=== PATIENT | female | born 1940 | race Caucasian/White ===

== ENCOUNTER 2019-01-25 21:31 | Inpatient (IN) | payer MEDICARE ==
[~2019-01-25] VITALS: Ht 172.7 cm; Wt 93.0 kg
[~2019-01-25 21:31] MED LIST: ANTIVERT12.5 MG PO; CEPHALEXIN500 MG PO; HYDROCHLORO25 MG/TAB PO; LISINOPRIL10 MG PO; METFORMIN500 MG PO; METOPROL TAR25 MG PO; PLAVIX75 MG PO; ROBITUSSIN AC10 ML PO; TOPROL XL PO; ZPAK PO
[2019-01-25] MEDS ORDERED: AMLODIPINE5 MG PO (22:27)
[2019-01-25] MEDS ORDERED: PLAVIX75 MG PO (22:27)
[2019-01-25] MEDS ORDERED: MAXZIDE-2537.5 MG/TA PO (22:28)
[2019-01-25] MEDS ORDERED: SIMVASTATIN40 MG PO (22:29)
[2019-01-25 22:49] LABS: HEMATOCRIT 48.2 % (37.0-47.0); IMMATURE GRANULOCYTES 0.5 % (0.0-5.0); MEAN CELL VOLUME 86.8 fL CALC (80.0-100.0); MEAN CORPUSCULAR HGB 28.8 pG CALC (26.0-32.0); MEAN CORPUSCULAR HGB CONC 33.2 g/L CALC (32.0-36.0); NEUT# 7.28 thou/uL (2.00-7.15); RED BLOOD COUNT 5.55 mill/uL (4.20-5.60); RED CELL DISTRI WIDTH 13.1 % (11.5-15.5)
[2019-01-25 22:51] LABS: URINE BILIRUBIN - DIPSTICK NEGATIVE (NEGATIVE); URINE BLOOD DIPSTICK NEGATIVE (NEGATIVE); URINE COLOR YELLOW; URINE GLUCOSE - DIPSTICK >=1000 mg/dL (NEGATIVE); URINE KETONE TRACE mg/dL (NEGATIVE); URINE LEUK ESTERASE TRACE (NEGATIVE); URINE NITRITE - DIPSTICK NEGATIVE (Negative); URINE PROTEIN - DIPSTICK NEGATIVE (NEG-TRACE); URINE UROBILINOGEN - DIPSTICK 0.2 E.U./dL (0.2)
[2019-01-25 23:03] LABS: ALBUMIN 4.6 g/dL (3.2-5.0); ALKALINE PHOSPHATASE 89 u/l (38-126); ANION GAP 20 (6-22 (CALC)); BILIRUBIN, TOTAL 0.8 mg/dL (0.0-1.4); BUN 50 mg/dL (8-23); BUN/CREATININE RATIO 45 (12-20 (CALC)); CARBON DIOXIDE 25 mmol/l (22-30); CHLORIDE 90 mmol/l (95-108); CREATININE 1.1 mg/dL (0.5-1.0); GFR 48 ML/MIN (>=60 (CALC)); GFR FOR AFR.AMER. 58 ML/MIN (>=60 (CALC)); POTASSIUM 4.1 mmol/l (3.5-5.1); SGOT/AST 15 u/l (9-36); TOTAL PROTEIN 7.3 g/dL (6.3-8.2)
[2019-01-25 23:10] LABS: URINE BACTERIA FEW hpf; URINE RBC 0-2 RBC/hpf (0-5); URINE SQUAMOUS EPITHELIAL CELL FEW EPI/hpf (0-FEW); URINE WBC 20-50 WBC/hpf (0-5)
[2019-01-25 23:13] LABS: SODIUM 131 mmol/l (137-146)
[2019-01-25 23:16] LABS: MYOGLOBIN 64 ng/mL (0 - 62)
[2019-01-26] VITALS (13 sets, daily range): BP systolic 103–142; BP diastolic 51–70
[2019-01-26 00:34] LABS: ANION GAP 16 (6-22 (CALC)); BUN 51 mg/dL (8-23); BUN/CREATININE RATIO 50 (12-20 (CALC)); CARBON DIOXIDE 24 mmol/l (22-30); CHLORIDE 95 mmol/l (95-108); GFR 54 ML/MIN (>=60 (CALC)); GFR FOR AFR.AMER. > 60 ML/MIN (>=60 (CALC)); POTASSIUM 3.9 mmol/l (3.5-5.1); SODIUM 131 mmol/l (137-146)
[2019-01-27] VITALS: BP 143/85
[2019-01-27 04:00] VITALS: BP 137/70
[2019-01-27 05:21] LABS: HEMATOCRIT 50.6 % (37.0-47.0); HEMOGLOBIN 16.5 g/dl (12.0-16.0); IMMATURE GRANULOCYTES 0.4 % (0.0-5.0); MEAN CELL VOLUME 89.7 fL CALC (80.0-100.0); MEAN CORPUSCULAR HGB 29.3 pG CALC (26.0-32.0); MEAN CORPUSCULAR HGB CONC 32.6 g/L CALC (32.0-36.0); NEUT# 8.13 thou/uL (2.00-7.15); RED BLOOD COUNT 5.64 mill/uL (4.20-5.60); RED CELL DISTRI WIDTH 13.1 % (11.5-15.5)
[2019-01-27 06:14] LABS: ALBUMIN 4.3 g/dL (3.2-5.0); ALKALINE PHOSPHATASE 80 u/l (38-126); BILIRUBIN, TOTAL 0.9 mg/dL (0.0-1.4); BUN 24 mg/dL (8-23); BUN/CREATININE RATIO 31 (12-20 (CALC)); CHLORIDE 97 mmol/l (95-108); CREATININE 0.8 mg/dL (0.5-1.0); GFR > 60 ML/MIN (>=60 (CALC)); GFR FOR AFR.AMER. > 60 ML/MIN (>=60 (CALC)); LIPASE 102 u/l (23-300); MAGNESIUM 1.6 mg/dL (1.6-2.3); POTASSIUM 3.9 mmol/l (3.5-5.1); SGOT/AST 21 u/l (9-36); SODIUM 134 mmol/l (137-146); TOTAL PROTEIN 6.8 g/dL (6.3-8.2)
[2019-01-27 06:18] LABS: ANION GAP 23 (6-22 (CALC)); CARBON DIOXIDE 18 mmol/l (22-30)
[2019-01-27 06:42] LABS: AMYLASE 38 u/l (30-110)
[2019-01-27 08:08] VITALS: BP 124/59
[2019-01-27 13:22] VITALS: BP 145/68
[2019-01-27 15:10] VITALS: BP 104/67
[2019-01-27 18:53] VITALS: BP 101/56
[2019-01-28 04:10] VITALS: BP 123/74
[2019-01-28 05:24] LABS: IMMATURE GRANULOCYTES 0.2 % (0.0-5.0); MEAN CELL VOLUME 87.1 fL CALC (80.0-100.0); MEAN CORPUSCULAR HGB CONC 33.3 g/L CALC (32.0-36.0); NEUT# 3.51 thou/uL (2.00-7.15); RED BLOOD COUNT 4.82 mill/uL (4.20-5.60); RED CELL DISTRI WIDTH 13.1 % (11.5-15.5)
[2019-01-28 06:15] LABS: ALBUMIN 3.5 g/dL (3.2-5.0); ALKALINE PHOSPHATASE 60 u/l (38-126); BILIRUBIN, TOTAL 0.6 mg/dL (0.0-1.4); BUN 30 mg/dL (8-23); BUN/CREATININE RATIO 33 (12-20 (CALC)); CHLORIDE 99 mmol/l (95-108); CREATININE 0.9 mg/dL (0.5-1.0); GFR > 60 ML/MIN (>=60 (CALC)); GFR FOR AFR.AMER. > 60 ML/MIN (>=60 (CALC)); MAGNESIUM 1.6 mg/dL (1.6-2.3); POTASSIUM 3.9 mmol/l (3.5-5.1); SGOT/AST 18 u/l (9-36); SODIUM 134 mmol/l (137-146); TOTAL PROTEIN 5.8 g/dL (6.3-8.2)
[2019-01-28 06:25] LABS: ANION GAP 15 (6-22 (CALC)); CARBON DIOXIDE 24 mmol/l (22-30)
[2019-01-28 07:40] VITALS: BP 122/63
[2019-01-28] MEDS ORDERED: CEPHALEXIN500 MG PO (14:25)
[2019-01-28] MEDS ORDERED: METFORMIN1000 MG PO (14:27)
[2019-01-28] MEDS ORDERED: JANUVIA50 MG PO (14:27)
[2019-01-28 15:40] VITALS: BP 116/66
== END 2019-01-28 17:35 | disposition home or self-care (01) | DRG 637 ==
LOC: ED 21:31 → ED-I 01-26 00:35 → ED 01-26 01:00 → ICU 01-26 01:01 → MS2 01-26 01:01
PROVIDERS: Emergency Medicine; ADMIT Internal Medicine Nephrology; ATTEND Internal Medicine Nephrology
DX: E11.65 Type 2 diabetes mellitus with hyperglycemia (principal); E11.00 Type 2 diabetes mellitus with hyperosmolarity without nonketotic hyperglycemic-hyperosmolar coma (NKHHC); N39.0 Urinary tract infection, site not specified; I10 Essential (primary) hypertension; F03.90 Unspecified dementia, unspecified severity, without behavioral disturbance, psychotic disturbance, mood disturbance, and anxiety; I25.10 Atherosclerotic heart disease of native coronary artery without angina pectoris; I34.1 Nonrheumatic mitral (valve) prolapse; E78.5 Hyperlipidemia, unspecified; I95.9 Hypotension, unspecified; B96.20 Unspecified Escherichia coli [E. coli] as the cause of diseases classified elsewhere; Z95.5 Presence of coronary angioplasty implant and graft; Z79.02 Long term (current) use of antithrombotics/antiplatelets; Z79.84 Long term (current) use of oral hypoglycemic drugs; Z88.0 Allergy status to penicillin
CPT/HCPCS: J1956

== ENCOUNTER 2019-05-21 21:38 | Emergency (ER) | payer MEDICARE ==
[~2019-05-21] VITALS: Ht 172.7 cm; Wt 88.0 kg
[~2019-05-21 21:38] MED LIST changes: +AMLODIPINE5 MG PO; +JANUVIA50 MG PO; +MAXZIDE-2537.5 MG/TA PO; +METFORMIN1000 MG PO; +SIMVASTATIN40 MG PO
[2019-05-21 22:44] LABS: HEMATOCRIT 41.7 % (37.0-47.0); HEMOGLOBIN 13.4 g/dl (12.0-16.0); IMMATURE GRANULOCYTES 0.3 % (0.0-5.0); MEAN CELL VOLUME 88.2 fL CALC (80.0-100.0); MEAN CORPUSCULAR HGB 28.3 pG CALC (26.0-32.0); MEAN CORPUSCULAR HGB CONC 32.1 g/L CALC (32.0-36.0); NEUT# 5.52 thou/uL (2.00-7.15); RED BLOOD COUNT 4.73 mill/uL (4.20-5.60); RED CELL DISTRI WIDTH 13.2 % (11.5-15.5)
[2019-05-21 22:45] LABS: URINE BILIRUBIN - DIPSTICK NEGATIVE (NEGATIVE); URINE BLOOD DIPSTICK NEGATIVE (NEGATIVE); URINE COLOR YELLOW; URINE GLUCOSE - DIPSTICK NEGATIVE (NEGATIVE); URINE KETONE TRACE mg/dL (NEGATIVE); URINE NITRITE - DIPSTICK NEGATIVE (Negative); URINE PROTEIN - DIPSTICK TRACE mg/dL (NEG-TRACE); URINE SPECIFIC GRAVITY 1.025; URINE UROBILINOGEN - DIPSTICK 0.2 E.U./dL (0.2)
[2019-05-21 22:50] LABS: BARBITURATES NEGATIVE (NEGATIVE); COCAINE NEGATIVE (NEGATIVE); METHADONE NEGATIVE (NEGATIVE); OXCYCODONE NEGATIVE (NEGATIVE); TETRAHYDROCANNABIONOL NEGATIVE (NEGATIVE); TRICYLIC ANTIDEPRESSANTS NEGATIVE (NEGATIVE); URINE LEUK ESTERASE MODERATE (NEGATIVE)
[2019-05-21 23:01] LABS: ALBUMIN 4.3 g/dL (3.2-5.0); ALKALINE PHOSPHATASE 56 u/l (38-126); ANION GAP 13 (6-22 (CALC)); BILIRUBIN, TOTAL 0.7 mg/dL (0.0-1.4); BUN 12 mg/dL (8-23); BUN/CREATININE RATIO 18 (12-20 (CALC)); CARBON DIOXIDE 28 mmol/l (22-30); CHLORIDE 106 mmol/l (95-108); CREATININE 0.7 mg/dL (0.5-1.0); GFR > 60 ML/MIN (>=60 (CALC)); GFR FOR AFR.AMER. > 60 ML/MIN (>=60 (CALC)); LIPASE 50 u/l (23-300); POTASSIUM 3.6 mmol/l (3.5-5.1); SGOT/AST 23 u/l (9-36); TOTAL PROTEIN 7.3 g/dL (6.3-8.2); URINE BACTERIA MODERATE hpf; URINE MUCUS RARE hpf (NONE-FEW); URINE RBC 0-2 RBC/hpf (0-5); URINE SQUAMOUS EPITHELIAL CELL FEW EPI/hpf (0-FEW); URINE WBC 20-50 WBC/hpf (0-5)
[2019-05-21 23:02] LABS: ETHYL ALCOHOL 0 mg/dl (0-30); INTERNATIONAL NORMALIZED RATIO 1.1 RATIO (0.7-1.3); PROTHROMBIN TIME 11.5 SECONDS (9.0-12.5)
[2019-05-21 23:03] LABS: SODIUM 143 mmol/l (137-146)
[2019-05-21] MEDS ORDERED: BACTRIM DS1 TAB PO (23:50)
[2019-05-22 00:15] VITALS: BP 161/78
[2019-05-22] MEDS ORDERED: KLOR-CON M2020 MEQ PO (03:54)
[2019-05-22] MEDS ORDERED: MELATONIN5 M3 PO (03:55)
[2019-05-22] MEDS ORDERED: DONEPEZIL5 MG PO (03:58)
[2019-05-22] MEDS ORDERED: MIRALAX3350 NF PO (03:59)
[2019-05-22] MEDS ORDERED: TOUJEO SOL300 UNIT/M SC (04:01)
[2019-05-22] MEDS ORDERED: SEROQUEL25 MG (04:02)
[2019-05-22] MEDS ORDERED: LASIX20 MG PO (04:12)
[2019-05-22] MEDS ORDERED: METFORMIN500 MG PO (04:13)
== END 2019-05-22 00:15 | disposition home or self-care (01) ==
LOC: ED 21:38
DX: N39.0 Urinary tract infection, site not specified (principal); F03.90 Unspecified dementia, unspecified severity, without behavioral disturbance, psychotic disturbance, mood disturbance, and anxiety; R22.43 Localized swelling, mass and lump, lower limb, bilateral; E11.9 Type 2 diabetes mellitus without complications; Z79.84 Long term (current) use of oral hypoglycemic drugs; Z79.01 Long term (current) use of anticoagulants; R00.1 Bradycardia, unspecified

== ENCOUNTER 2019-08-30 14:40 | Emergency (ER) | payer MEDICARE ==
[~2019-08-30] VITALS: Ht 172.7 cm; Wt 68.7 kg
[~2019-08-30 14:40] MED LIST changes: +BACTRIM DS1 TAB PO; +DONEPEZIL5 MG PO; +KLOR-CON M2020 MEQ PO; +LASIX20 MG PO; +MELATONIN5 M3 PO; +MIRALAX3350 NF PO; +SEROQUEL25 MG; +TOUJEO SOL300 UNIT/M SC
[2019-08-30 15:08] LABS: GFR > 60 ML/MIN (>=60 (CALC)); GFR FOR AFR.AMER. > 60 ML/MIN (>=60 (CALC))
[2019-08-30 15:14] LABS: HEMOGLOBIN 15.2 g/dl (12.0-16.0); IMMATURE GRANULOCYTES 0.4 % (0.0-5.0); MEAN CELL VOLUME 90.9 fL CALC (80.0-100.0); MEAN CORPUSCULAR HGB CONC 31.9 g/L CALC (32.0-36.0); NEUT# 6.23 thou/uL (2.00-7.15); RED BLOOD COUNT 5.25 mill/uL (4.20-5.60); RED CELL DISTRI WIDTH 13.2 % (11.5-15.5)
[2019-08-30 15:17] LABS: HEMATOCRIT 47.7 % (37.0-47.0)
[2019-08-30 15:24] LABS: PROTHROMBIN TIME 10.9 SECONDS (9.0-12.5)
[2019-08-30 15:28] LABS: ALBUMIN 4.6 g/dL (3.2-5.0); ALKALINE PHOSPHATASE 55 u/l (38-126); BILIRUBIN, TOTAL 0.5 mg/dL (0.0-1.4); BUN 18 mg/dL (8-23); BUN/CREATININE RATIO 31 (12-20 (CALC)); CARBON DIOXIDE 28 mmol/l (22-30); CHLORIDE 100 mmol/l (95-108); CREATININE 0.6 mg/dL (0.5-1.0); GFR > 60 ML/MIN (>=60 (CALC)); GFR FOR AFR.AMER. > 60 ML/MIN (>=60 (CALC)); LIPASE 70 u/l (23-300); SGOT/AST 22 u/l (9-36); SODIUM 141 mmol/l (137-146); TOTAL PROTEIN 7.9 g/dL (6.3-8.2)
[2019-08-30 15:31] LABS: ANION GAP 17 (6-22 (CALC)); POTASSIUM 4.4 mmol/l (3.5-5.1)
[2019-08-30 16:07] VITALS: BP 178/73
[2019-10-18] MEDS ORDERED: LEVAQUIN750 MG VT (14:00)
== END 2019-08-30 16:07 | disposition short-term general hospital (02) ==
LOC: ED 14:40
PROVIDERS: Family Medicine
DX: I63.9 Cerebral infarction, unspecified (principal); R47.01 Aphasia; R26.9 Unspecified abnormalities of gait and mobility; I69.998 Other sequelae following unspecified cerebrovascular disease; H53.40 Unspecified visual field defects; E11.9 Type 2 diabetes mellitus without complications; F03.90 Unspecified dementia, unspecified severity, without behavioral disturbance, psychotic disturbance, mood disturbance, and anxiety; Z79.4 Long term (current) use of insulin
CPT/HCPCS: J2997

== ENCOUNTER 2019-10-14 17:21 | Inpatient (IN) | payer MEDICARE, MEDICAID ==
[~2019-10-14] VITALS: Ht 172.7 cm; Wt 95.5 kg
--- NOTE | 2019-10-14 17:21 | NUR ---
PT TO ROOM VIA EMS; DR SANDOVAL AT BEDSIDE FOR ASSESSMENT; PT TRACHEOSTOMY SUCTIONED PER RT AT THIS TIME; MONITORING DEVICES APPLIED; WILL CONTINUE TO MONITOR
--- NOTE | 2019-10-14 17:30 | NUR ---
DR SANDOVAL AT BEDSIDE FOR CENTRAL LINE PLACEMENT
--- NOTE | 2019-10-14 18:30 | NUR ---
CAREGIVERS AND DR SANDOVAL AT BEDSIDE TO DISCUSS POC
[2019-10-14 18:49] LABS: IMMATURE GRANULOCYTES 0.5 % (0.0-5.0); MEAN CELL VOLUME 87.3 fL CALC (80.0-100.0); MEAN CORPUSCULAR HGB 28.8 pG CALC (26.0-32.0); NEUT# 9.65 thou/uL (2.00-7.15); RED CELL DISTRI WIDTH 15.2 % (11.5-15.5)
[2019-10-14 18:54] LABS: HEMATOCRIT 34.9 % (37.0-47.0); HEMOGLOBIN 11.5 g/dl (12.0-16.0)
[2019-10-14 18:57] LABS: URINE BILIRUBIN - DIPSTICK NEGATIVE (NEGATIVE); URINE BLOOD DIPSTICK NEGATIVE (NEGATIVE); URINE COLOR YELLOW; URINE GLUCOSE - DIPSTICK NEGATIVE (NEGATIVE); URINE KETONE NEGATIVE (NEGATIVE); URINE NITRITE - DIPSTICK NEGATIVE (Negative); URINE PH 5.5 (4.5-8.0); URINE PROTEIN - DIPSTICK NEGATIVE (NEG-TRACE); URINE SPECIFIC GRAVITY 1.025; URINE UROBILINOGEN - DIPSTICK 0.2 E.U./dL (0.2)
--- NOTE | 2019-10-14 19:00 | NUR ---
REPORT GIVEN TO CARLOS ENRIQUE VALERO
--- NOTE | 2019-10-14 19:10 | NUR ---
OLD CANELA CATH REMOVED. NEW CANELA INSERTED, PATIENT AND DRAINING CLOUDY NITHYA URINE.
[2019-10-14 19:18] LABS: URINE LEUK ESTERASE MODERATE (NEGATIVE)
[2019-10-14 19:30] LABS: URINE SQUAMOUS EPITHELIAL CELL FEW EPI/hpf (0-FEW); URINE WBC TNTC WBC/hpf (0-5)
[2019-10-14 19:31] LABS: ALKALINE PHOSPHATASE 56 u/l (38-126); BILIRUBIN, TOTAL 0.5 mg/dL (0.0-1.4); BUN 22 mg/dL (8-23); BUN/CREATININE RATIO 52 (12-20 (CALC)); CARBON DIOXIDE 31 mmol/l (22-30); CREATININE 0.4 mg/dL (0.5-1.0); GFR > 60 ML/MIN (>=60 (CALC)); GFR FOR AFR.AMER. > 60 ML/MIN (>=60 (CALC)); LIPASE 175 u/l (23-300); POTASSIUM 4.1 mmol/l (3.5-5.1); SGOT/AST 34 u/l (9-36)
[2019-10-14 19:31] LABS: URINE BACTERIA MANY hpf
[2019-10-14 19:35] LABS: ALBUMIN 2.8 g/dL (3.2-5.0); ANION GAP 11 (6-22 (CALC)); CHLORIDE 87 mmol/l (95-108); SODIUM 125 mmol/l (137-146); TOTAL PROTEIN 5.7 g/dL (6.3-8.2)
--- NOTE | 2019-10-14 21:00 | NUR ---
BEDRESTING EYES CLOSED. NONVERBAL BUT MADE FACILA GRIMACES WHEN CANELA CHANGED AND NEW CANELA PLACED. TOLERATED PROCEDURE WELL
--- NOTE | 2019-10-14 22:00 | NUR ---
BEDRESTING. RESP EVEN AND NONLABORED. NO DISTRESS NOTED AT THIS TIME.
--- NOTE | 2019-10-14 22:30 | NUR ---
BEDRESTING. RESP EVEN AND NONLABORED. NO DISTRESS NOTED
--- NOTE | 2019-10-14 23:11 | NUR ---
TO RADIOLOGY WITH NURSE ESCORT. FAMILY PHONED AND VOICED CONCERN THAT PT REMAINS IN ER. NURSE (MARYLU) EXPLAINED THAT1 MORE TEST IS ORDERED AND THE RESULTS WILL DETERMINE THE MD'S RECOMMENDATION FOR FURTHER TREATMENT
--- NOTE | 2019-10-14 23:40 | NUR ---
AWAIIT ADMISSION. NO DSITRESS NOTED
--- NOTE | 2019-10-14 23:55 | NUR ---
BLOODY DRAINAGE NOTED UNDER TLC INSERTION SITE.
[2019-10-15] VITALS (7 sets, daily range): BP systolic 117–145; BP diastolic 56–73
--- NOTE | 2019-10-15 00:03 | NUR ---
Admission Note Report Given to: VANITA MONACO Transported by: Wheelchair X Stretcher Transported with: X Nurse Transporter X Patent IV X O2 X Vulcanized Fiber Unit Operator Location: ICU X MS2
--- NOTE | 2019-10-15 00:06 | NUR ---
TO MS FLOOR VIA STRETCHER.
--- NOTE | 2019-10-15 02:33 | NUR ---
RECEIVED REPORT FROM ED NURSE MARYLU, PATIENT TRANSPORTED VIA BED ARRIVED TO FLOOR AT 0015, TRANSFERRED TO BED USING FOUR PERSON ASSIST, RT IN ROOM AND SET UP O2 @ 5LPM HUMIDIFIED VIA TRACH COLLAR, HAS A TRIPLE LUMEN CENTRAL LINE PATENT FLUSHES WELL, HOOKED TO NS @ 125CC/HR. CANELA CATHETER DRAINING NITHYA COLORED URINE. SKIN INTACT, REDNESS NOTED ON BUTTOCKS, TRACH CARE DONE. BED ALARM IN PLACE.
--- NOTE | 2019-10-15 05:13 | NUR ---
PATIENT RESTING IN BED, EYES CLOSED RESPONDS TO SPEECH, REMAINS ON O2 VIA TRACH COLLAR, EVEN UNLABORED BREATHING CALL LIGHTA AT REACH.
--- NOTE | 2019-10-15 06:28 | NUR ---
SUCTIONED SECRETIONS AT THIS TIME.
--- NOTE | 2019-10-15 07:00 | NUR ---
SHIFT CHANGE REPORT, PT SLEEPING BUT RESPONDS NON-VERBALLY TO VERBAL STIMULI, TREAKESTOMY IN PLACE WITH O2 @ 5L, TELE MONITOR IN PLACE, CANELA IN PLACE WITH CLEAR YELLOW URINE, NO SIGN DISCOMFORT, ALL NEEDS ANTICIPATED AND ADDRESSED, BED IN LOWEST POSITION AND CALL RAMOS IN REACH.
--- NOTE | 2019-10-15 11:58 | NUR ---
GRAND-DAUGHTER & POA CONTACTED VIA PHONE, REPORTED PT GETS 5 CANS JEVITY 1.5 DAILY- 1 AT BREAKFAST, 2 AT LUNCH AND 2 AT SUPPER. CASINO ASSISTANT MANAGER AND SENIOR GIS ANALYST NOTIFIED, ORDERS PLACED.
--- NOTE | 2019-10-15 13:11 | NUR ---
S: ROBERTO PRAJAPATI is a 79 F who presents with Sepsis/UTI. She has a history of heart disease, DM, MARSHALL, Mitral Valve Prolapse, Dementia, Fluid Retention, Kidney Issues. All medications in patient's chart were reviewed. O: VS: BP 138/72 mmHg , P 89 bpm, RR 18 breaths/min, T 97.4 F W 105 kg, HT 172.72 CM, Scr= 0.4 Mg/dL,CrCl= 47ml/min A: Blood culture is pending. Urine culture is pending. P: Patient is on Aztreoam 1GM IV Q24H. Vancomycin ordered for pharmacy to dose. Start Vancomycin 1,500 mg IV Q24H. Vancomycin trough is drawn 30 minutes before the 4th dose on 10/17/19 at 0830. Vancomycin goal trough is between 15-20 mcg/ml. Pharmacy will follow and or advise on antibiotics use as needed.
[2019-10-15] MEDS ORDERED: ASPIRIN 8181 MG PO (15:41)
[2019-10-15] MEDS ORDERED: DEPAKOTE125 MG PO (15:44)
[2019-10-15] MEDS ORDERED: DONEPEZIL5 MG PO (15:44)
[2019-10-15] MEDS ORDERED: PEPCID20 MG PO (15:46)
[2019-10-15] MEDS ORDERED: LASIX 20 MG TAB20 MG PO (15:47)
[2019-10-15] MEDS ORDERED: ZESTRIL40 MG PO (15:47)
[2019-10-15] MEDS ORDERED: LOPRESSOR50 M1 PO (15:48)
[2019-10-15] MEDS ORDERED: MIRALAX3350 NF PO (15:50)
[2019-10-15] MEDS ORDERED: SIMVASTATIN40 MG PO (15:50)
--- NOTE | 2019-10-15 18:15 | NUR ---
I SPOKE WITH ARMANDO FROM [facility] AT 1748 REGARDING THE MATRESS FOR THIS PATIENT. THE CONFIRMATION NUMBER IS #[id number]. NUMBER FOR [facility]
--- NOTE | 2019-10-15 20:15 | NUR ---
ASSESSMENT COMPLETED. RIGHT FEMEROL TRIPLE CATHETER NOTED AND INFUSING ORDERED IVF WELL, OTHER 2 PORTS FLUSH WELL WITH NS. PT. IS VERY SOFT SPOKEN AND ABLE TO NOD WHEN ANSWERING QUESTIONS. PT. HAS VERY MINIMAL MOVEMENT TO EXTREMETIES AND IS TOTAL CARE. REPOSITIONED ONTO LEFT SIDE AND BILATERAL HEEL PROTECTORS IN PLACE TO PREVENT BREAKDOWN. FOLET CATHETER IN PLACE AND DRAINING AT GRAVITY LEVEL. TRACHE IN PLACE WITH HUMIDIFIED O2 IN PLACE. UPDATED ON POC. CALL LIGHT IS IN REACH. WILL CONTINUE TO MONITOR.
--- NOTE | 2019-10-15 21:55 | NUR ---
RESIDUAL CHECKED TO PEG TUBE AND NONE AT THIS TIME. TUBE FEED GIVEN AT THIS TIME AND PT. TOLERATED WELL. HOB REMAINS ELEVATED. PT. NODS THAT SHE IS OK AND DENIES NEEDS AT THIS TIME.
--- NOTE | 2019-10-15 23:40 | NUR ---
VSS; NO DISTRESS NOTED. MOVED PT. ONTO AIR MATTRESS PER ORDER. PT. TOLERATED WELL. REPOSITIONED. RT PERFORMED TRACHE CARE AND SUCTIONING EARLIER IN SHIFT. PT. DENIES NEEDS. CALL LIGHT IS IN REACH.
[2019-10-16 03:27] VITALS: BP 127/72
--- NOTE | 2019-10-16 03:56 | NUR ---
AM LABS DRAWN VIA TRIPLE LUMEN AND FLUSHED PER PROTOCOL. DENIES NEEDS. CALL LIGHT IS IN REACH.
[2019-10-16 05:15] LABS: HEMATOCRIT 32.2 % (37.0-47.0); HEMOGLOBIN 10.3 g/dl (12.0-16.0); IMMATURE GRANULOCYTES 0.5 % (0.0-5.0); MEAN CELL VOLUME 90.2 fL CALC (80.0-100.0); MEAN CORPUSCULAR HGB 28.9 pG CALC (26.0-32.0); NEUT# 4.19 thou/uL (2.00-7.15); RED BLOOD COUNT 3.57 mill/uL (4.20-5.60); RED CELL DISTRI WIDTH 15.1 % (11.5-15.5)
[2019-10-16 05:49] LABS: ALBUMIN 2.5 g/dL (3.2-5.0); ALKALINE PHOSPHATASE 60 u/l (38-126); BILIRUBIN, TOTAL 0.4 mg/dL (0.0-1.4); BUN 13 mg/dL (8-23); BUN/CREATININE RATIO 51 (12-20 (CALC)); CARBON DIOXIDE 27 mmol/l (22-30); CREATININE 0.3 mg/dL (0.5-1.0); GFR > 60 ML/MIN (>=60 (CALC)); GFR FOR AFR.AMER. > 60 ML/MIN (>=60 (CALC)); POTASSIUM 3.7 mmol/l (3.5-5.1); SGOT/AST 25 u/l (9-36)
[2019-10-16 05:50] LABS: ANION GAP 10 (6-22 (CALC)); CHLORIDE 101 mmol/l (95-108); SODIUM 134 mmol/l (137-146)
--- NOTE | 2019-10-16 06:15 | NUR ---
CHECKED FOR INCONTINENCE OF BM AND NONE NOTED. REPOSITIONED. CALL LIGHT IS IN REACH.
--- NOTE | 2019-10-16 07:00 | NUR ---
SHIFT CHANGE REPORT, PT RESTING COMFORTABLY IN BED, TRACH MASK IN PLACE, BREATHING EVEN AND NON-LABORED, TELE MONITOR IN PLACE, CANELA CATHETER IN PLACE WITH YELLOW URINE, BED NOW HAS AIR MATTRESS WHICH WAS PLACED DURING THE NIGHT, CALL RAMOS IN REACH.
[2019-10-16 07:35] VITALS: BP 188/73
[2019-10-16 11:10] VITALS: BP 171/77
--- NOTE | 2019-10-16 12:00 | NUR ---
REPOSITIONED AND FED 2 CANS GLUCERNA, NO RESIDUAL WHEN ASSESSED, TOLERATING FEEDS WELL.
--- NOTE | 2019-10-16 16:00 | NUR ---
ASSISTED WITH NADEEM CARE AND COMPLETE LINNEN CHANGE, ALL NEEDS ANTICIPATED AND MET.
[2019-10-16 16:45] VITALS: BP 159/75
--- NOTE | 2019-10-16 17:00 | NUR ---
PER DIETITION AND RESORT MANAGER, 8 CANS GLUCERNA DAILY, 2 ea @ 0700, 1200, 1700, 2200, FLUSH WITH 100CC H2O WITH ea FEED, HOLD FEED FOR 1 HOUR IF RESIDUAL > 100 CC, RECHECK IN 1 HOUR.
--- NOTE | 2019-10-16 18:00 | NUR ---
FAMILY MEMBERS VISITED REPORTED LOST BELONGINGS SUCH BED SHEET, PILLOW, INCONTINENT COTTON PAD AND BACON SKIN LIFTER'S LICENSE, MANAGER GAMES MARCUS NOTIFIED AND RETREIVED LICENSE FROM [employer], PILLOW WAS SEEN BY STAFF ROBINA YESTERDAY BUT NOT FOUND IN ROOM AT TIME OF REPORTED LOSS, BED LINNENS HAVE NOT BEEN SEEN REPORTED BY STAFF WHO RECEIVED PT ON 10/14/19.
[2019-10-16 18:49] VITALS: BP 153/79
--- NOTE | 2019-10-16 20:45 | NUR ---
ASSESMENT COMPLETE, PT REPOSITIONED. DENIES DISCOMFORT OR NEEDS AT THIS TIME. CALL RAMOS WITHIN REACH.
[2019-10-16 23:34] VITALS: BP 153/73
[2019-10-17] VITALS (7 sets, daily range): BP systolic 101–174; BP diastolic 65–98
--- NOTE | 2019-10-17 00:15 | NUR ---
PT APPEARS TO BE SLEEPING COMFORTABLY, RESP REG/UNLABORED. NO APPARENT DISTRESS. CALL RAMOS REMAINS WITHIN REACH.
--- NOTE | 2019-10-17 01:25 | NUR ---
PT FOUND W/RIGHT LEG HANGING OFF THE BED. PT REPOSITIONED W/FEET ELEVATED ON PILLOW AND PILLOW UNDER LEFT SIDE. LIGHTS DIMMED. I ASKED PT IF SHE WAS IN PAIN/NO RESPONSE. I ASKED PT IF SHE WAS COMFORTABLE IN THE POSITION WE PLACED HER IN/NO RESPONSE. PT EYES ARE OPEN, BUT SHE IS NOT NODDING OR SPEAKING TO EXPRESS NEEDS/PREFERENCES.
[2019-10-17 05:23] LABS: HEMOGLOBIN 9.9 g/dl (12.0-16.0); IMMATURE GRANULOCYTES 0.5 % (0.0-5.0); MEAN CELL VOLUME 89.6 fL CALC (80.0-100.0); MEAN CORPUSCULAR HGB 28.6 pG CALC (26.0-32.0); MEAN CORPUSCULAR HGB CONC 31.9 g/L CALC (32.0-36.0); NEUT# 4.43 thou/uL (2.00-7.15); RED BLOOD COUNT 3.46 mill/uL (4.20-5.60); RED CELL DISTRI WIDTH 15.2 % (11.5-15.5)
[2019-10-17 05:41] LABS: ANION GAP 10 (6-22 (CALC)); BUN 12 mg/dL (8-23); BUN/CREATININE RATIO 47 (12-20 (CALC)); CARBON DIOXIDE 26 mmol/l (22-30); CHLORIDE 101 mmol/l (95-108); CREATININE 0.2 mg/dL (0.5-1.0); GFR > 60 ML/MIN (>=60 (CALC)); GFR FOR AFR.AMER. > 60 ML/MIN (>=60 (CALC)); MAGNESIUM 1.8 mg/dL (1.6-2.3); POTASSIUM 3.6 mmol/l (3.5-5.1); SODIUM 133 mmol/l (137-146)
--- NOTE | 2019-10-17 06:16 | NUR ---
RESP IN W/PT FOR SPUTUM SAMPLE AND SUCTIONING. PT TOLERATED WELL. V/S ASSESSED AT THIS TIME FOR REASSESSMENT OF BP. IV ANTIBIOTIC THERAPY ADMINISTERED AT THIS TIME. PT EYES CLOSED, NON-RESPONSIVE TO MY VOICE AT THIS TIME.
--- NOTE | 2019-10-17 08:04 | NUR ---
Critical results of blood culture growing gram positive cocci in [address] Poon. Pt currently on vancomycin and aztreonam. No new orders received.
--- NOTE | 2019-10-17 09:15 | NUR ---
ASSESSMENT COMPLETED; PT DROWSY/AROUSABLE; NOT VERBAL AT THIS TIME; PT RESTING ON AIR MATTRESS, REPOSITIONED PER NETWORK SUPPORT ANALYST; CANELA DRAINING CLEAR YELLOW URINE TO BEDSIDE DRAIN; PEG TUBE IN PLACE; CALL RAMOS WITHIN REACH; WILL CONTINUE TO MONITOR.
--- NOTE | 2019-10-17 11:45 | NUR ---
S: ROBERTO PRAJAPATI is a 79 F who presents with Sepsis/UTI. She has a history of Heart Disease, DM, Mitral Valve Prolapse, Dementia, Fluid retention, Kidney issues. All medications in patient's chart were reviewed. O: VS: BP: 174/85 mmHg, P: 75 bpm, RR: 20 breath per minutes,T: 97.9 F W: 94.602 kg, HT: 68 in, Scr= 0.2 mg/dL ,CrCl= 56.7 ml/min Vancomycin trough 10/17/19@0855 = 7 A: Blood culture preliminary results: 1 bottle growing Gram positive Cocci Urine culture: Growing E.Coli, > 100,000 CFU/ML which is sensitive to Bactrim, ciprofloxicin, Zosyn, cefepime. Sputum culture is pending. Vancomycin trough subtherapeutic. Increase in dose warranted. P: Patient is on Aztreonam 1 Gm IV Q8H and vancomycin 1500 mg iv q24h. Vancomycin ordered for pharmacy to dose. Increase Vancomycin to 1,000 mg IV Q12H. Vancomycin trough is drawn 30 minute before the 4th dose on 10/18/19 at 2230. Vancomycin goal trough is between 15-20 mcg/ml. Pharmacy will follow and or advise on antibiotics use as needed.
--- NOTE | 2019-10-17 12:30 | NUR ---
PEG TUBE CHECK FOR RESIDUAL; GIVEN 2 CANS OF GLUCERNA AND FLUSHED WITH 100 ML OF WATER; PT TOLERATED WELL; WILL CONTINUE TO MONITOR.
--- NOTE | 2019-10-17 13:30 | NUR ---
ONE UNSUCCESSFUL ATTEMPT AT IV ACCESS; PT TOLERATED WELL; CALL RAMOS WITHIN REACH; WILL CONTINUE TO MONITOR.
--- NOTE | 2019-10-17 14:29 | NUR ---
PT GIVEN COMPLETE BED BATH AND REPOSITIONED BY JEWELRY INSPECTOR; TOLERATED WELL; CALL RAMOS WITHIN REACH; WILL CONTINUE TO MONITOR.
--- NOTE | 2019-10-17 17:49 | NUR ---
#22 GAUGE STARTED IN [facility] BY Gisele KELLOGG RN; FIRST ATTEMPT SUCCESSFUL; CALL RAMOS WITHIN REACH; WILL CONTINUE TO MONITOR
--- NOTE | 2019-10-17 19:30 | NUR ---
FAMILY AT BEDSIDE, NEW BAND PLACED AND PREVIOUS BAND REMOVED BECAUSE IT WAS TO TIGHT. PT HAS DEPENDENT EDEMA TO BUE AND SWELLING IS VARIABLE THROUGHOUT THE DAY. BUE ELEVATED.
--- NOTE | 2019-10-17 20:45 | NUR ---
ASSESMENT AND TUBE FEED COMPLETED. PT COMFORTABLE AND IN NO DISTRESS, DENIES NEEDS AT THIS TIME. CALL RAMOS WITHIN REACH.
--- NOTE | 2019-10-18 00:05 | NUR ---
PT SLEEPING, APPEARS COMFORTABLE AND IN NO DISTRESS, RESP REG/UNLABORED. CALL RAMOS REMAINS WITHIN REACH.
--- NOTE | 2019-10-18 00:28 | NUR ---
PT APPEARS ASLEEP AT THIS TIME. NO S/O DISTRESS NOTED. WILL CONTINUE TO MONITOR.
--- NOTE | 2019-10-18 02:15 | NUR ---
PT WITH LG LIQUID STOOL, PT WASHED, LINENS CHANGED.
[2019-10-18 03:11] VITALS: BP 153/57
--- NOTE | 2019-10-18 05:31 | NUR ---
RESP REG/UNLABORED. NO APPARENT DISTRESS. APPEARS TO BE SLEEPING COMFORTABLY. CALL RAMOS REMAINS WITHIN REACH.
[2019-10-18 05:55] LABS: HEMATOCRIT 33.6 % (37.0-47.0); HEMOGLOBIN 10.7 g/dl (12.0-16.0); MEAN CELL VOLUME 91.6 fL CALC (80.0-100.0); MEAN CORPUSCULAR HGB 29.2 pG CALC (26.0-32.0); MEAN CORPUSCULAR HGB CONC 31.8 g/L CALC (32.0-36.0); RED BLOOD COUNT 3.67 mill/uL (4.20-5.60); RED CELL DISTRI WIDTH 15.6 % (11.5-15.5)
[2019-10-18 06:09] LABS: ANION GAP 8 (6-22 (CALC)); BUN 8 mg/dL (8-23); CARBON DIOXIDE 26 mmol/l (22-30); CHLORIDE 105 mmol/l (95-108); MAGNESIUM 1.8 mg/dL (1.6-2.3); POTASSIUM 3.3 mmol/l (3.5-5.1); SODIUM 136 mmol/l (137-146)
[2019-10-18 06:12] LABS: BUN/CREATININE RATIO 40 (12-20 (CALC)); CREATININE 0.2 mg/dL (0.5-1.0); GFR > 60 ML/MIN (>=60 (CALC)); GFR FOR AFR.AMER. > 60 ML/MIN (>=60 (CALC))
--- NOTE | 2019-10-18 07:30 | NUR ---
REPORT RECEIVED FROM CARLOS ENRIQUE AMBRIZ. PT IN SEMI-FOWLERS POSITION. PT. DROWSY, NON-VERBAL. O2 PER TRACH. CLEAR, YELLOW URINE PER CANELA CATHETER. RF TLC INFUSING NS @ 100ML/HR. AIR MATTRESS IN PLACE. SKIN INTACT. CALL LIGHT WITHIN REACH OF RIGHT HAND. LEFT HAND FLACCID.
[2019-10-18 08:47] VITALS: BP 130/50
[2019-10-18 11:00] VITALS: BP 172/88
--- NOTE | 2019-10-18 12:00 | NUR ---
GLUCERNA 1.0 WAQAR X 2 BOTTLES PER PEG TUBE. NO RESIDUAL PRIOR TO FEEDING. 100 ML H20 FLUSHED AFTER. PT TOLERATED WELL. PT SITTING UPRIGHT IN BED.
--- NOTE | 2019-10-18 13:00 | NUR ---
DR. VELASQUEZ IN TO SEE PT. AT THIS TIME. DISCHARGE HOME DISCUSSED.
[2019-10-18] MEDS ORDERED: LEVAQUIN750 MG VT ×2 (14:00)
[2019-10-18 15:27] VITALS: BP 122/69
--- NOTE | 2019-10-18 19:05 | NUR ---
REPORT RECEIVED FROM URBAN, PT RESTING IN BED, NO S/S OF DISTRESS AT THIS TIME. SAFETY PRECAUTIONS IN PLACE. WILL CONTINUE TO MONITOR.
[2019-10-18 20:00] VITALS: BP 163/71
--- NOTE | 2019-10-18 22:00 | NUR ---
PT RESTING IN BED. RESPIRATIONS EVEN AND UNLABORED. LUNGS SOUND DIMINISHED. PEDAL PULSES WEAK. CANELA DRAINING TO GRAVITY. TELE IN PLACE. PEG TUBE PLACEMENT ASSESSED. PT TOLERATED FEEDING WELL. SAFETY PRECAUTIPONS IN PLACE. WILL CONTINUE TO MONITOR.
[2019-10-19] VITALS: BP 156/75
--- NOTE | 2019-10-19 | NUR ---
RT IN WITH PT.
[2019-10-19 04:00] VITALS: BP 156/74
--- NOTE | 2019-10-19 04:09 | NUR ---
PT RESTING IN BED. NO S/S OF DISTRESS AT THIS TIME. SAFETY PRECAUTIONS IN PLACE. WILL CONTINUE TO MONITOR.
[2019-10-19 05:09] LABS: HEMATOCRIT 33.6 % (37.0-47.0); HEMOGLOBIN 10.6 g/dl (12.0-16.0); MEAN CELL VOLUME 91.6 fL CALC (80.0-100.0); MEAN CORPUSCULAR HGB 28.9 pG CALC (26.0-32.0); MEAN CORPUSCULAR HGB CONC 31.5 g/L CALC (32.0-36.0); RED BLOOD COUNT 3.67 mill/uL (4.20-5.60); RED CELL DISTRI WIDTH 15.8 % (11.5-15.5)
[2019-10-19 05:33] LABS: ANION GAP 10 (6-22 (CALC)); BUN 9 mg/dL (8-23); BUN/CREATININE RATIO 41 (12-20 (CALC)); CARBON DIOXIDE 28 mmol/l (22-30); CHLORIDE 103 mmol/l (95-108); CREATININE 0.2 mg/dL (0.5-1.0); GFR > 60 ML/MIN (>=60 (CALC)); GFR FOR AFR.AMER. > 60 ML/MIN (>=60 (CALC)); MAGNESIUM 1.8 mg/dL (1.6-2.3); POTASSIUM 4.5 mmol/l (3.5-5.1); SODIUM 136 mmol/l (137-146)
[2019-10-19 08:00] VITALS: BP 174/78
[2019-10-19 08:36] VITALS: BP 174/78
--- NOTE | 2019-10-19 10:00 | NUR ---
PT SEEN WITH EYES OPENED, APPEARS COMFORTABLE. TRACH IN PLACE, DOES NOT ALLOW FOR SPEECH. SKIN INTACT. IV SITE REMOVED PER ORDER IN ANTICIPATION OF DISCHARGE TO HOME, NO BLEEDING NOTED FROM R FEMORAL TLC SITE.
--- NOTE | 2019-10-19 11:25 | NUR ---
TRACH CARE COMPLETED. INNER CANNULA CHANGED.
--- NOTE | 2019-10-19 12:16 | NUR ---
GRANDDAUGHTER HERE PRIOR TO TRANSPORT TO HOME, RIGHT GROIN DRESSING CHANGED OUT.
--- NOTE | 2019-10-19 13:30 | NUR ---
PT HAS BEEN TAKEN BY [facility] TO HOME. GRANDDAUGHTER RECEIVED EXTRA TRACHs AND CANS OF GLUCERNA PER INSISTANCE OR SHE SAID THAT SHE WOULD NOT ALLOW PT TO BE TAKEN HOME. YUMIKO DIANE AND POLISHING WHEEL SETTER ELKIN WITH INPUT, HELPED RESOLVE SITUATION.
--- NOTE | 2019-10-19 16:16 | NUR ---
I SPOKE WITH ARMANDO FROM [facility] @4449 AND HE CONFIRMED THAT THE MATRESS WOULD BE PICKED UP. THE CONFIRMATION #[id number].
== END 2019-10-19 13:40 | disposition home health service (06) | DRG 698 ==
LOC: ED 17:21 → ED-I 23:11 → ED 23:37 → MS2 23:38
PROVIDERS: Family Medicine; Nurse Practitioner Family; ADMIT Internal Medicine; ATTEND Internal Medicine
PROC: 06HY33Z Insertion of Infusion Device into Lower Vein, Percutaneous Approach (ICD-10-PCS; principal; 2019-10-14)
PROC: 0T2BX0Z Change Drainage Device in Bladder, External Approach (ICD-10-PCS; 2019-10-14)
DX: T83.511A Infection and inflammatory reaction due to indwelling urethral catheter, initial encounter (principal); A41.9 Sepsis, unspecified organism; G82.50 Quadriplegia, unspecified; G93.41 Metabolic encephalopathy; J18.9 Pneumonia, unspecified organism; R65.20 Severe sepsis without septic shock; E87.1 Hypo-osmolality and hyponatremia; N39.0 Urinary tract infection, site not specified; I34.1 Nonrheumatic mitral (valve) prolapse; E11.22 Type 2 diabetes mellitus with diabetic chronic kidney disease; N18.9 Chronic kidney disease, unspecified; E78.5 Hyperlipidemia, unspecified; I69.165 Other paralytic syndrome following nontraumatic intracerebral hemorrhage, bilateral; B96.20 Unspecified Escherichia coli [E. coli] as the cause of diseases classified elsewhere; Y84.6 Urinary catheterization as the cause of abnormal reaction of the patient, or of later complication, without mention of misadventure at the time of the procedure; Z96.0 Presence of urogenital implants; Z93.0 Tracheostomy status; Z93.1 Gastrostomy status
CPT/HCPCS: J1650; J3370

== ENCOUNTER 2020-04-18 10:31 | Inpatient (IN) | payer MEDICARE ==
[~2020-04-18] VITALS: Ht 172.7 cm; Wt 105.3 kg
[2020-04-18] VITALS (11 sets, daily range): BP systolic 137–179; BP diastolic 59–86
[~2020-04-18 10:31] MED LIST changes: +ASPIRIN 8181 MG PO; +DEPAKOTE125 MG PO; +LASIX 20 MG TAB20 MG PO; +LEVAQUIN750 MG VT; +LOPRESSOR50 M1 PO; +PEPCID20 MG PO; +ZESTRIL40 MG PO
--- NOTE | 2020-04-18 10:57 | NUR ---
TO ROOM 15 VIA EMS STRETCHER, EMS REPORTS THAT FAMILY SENT PT TO ER FOR EVALUATION OF FEVER, AND PRODUCTIVE COUGH
--- NOTE | 2020-04-18 10:57 | NUR ---
CONTACT NITZA - ANTON- DALILA PRAJAPATI - [phone]
[2020-04-18 11:01] LABS: URINE BILIRUBIN - DIPSTICK NEGATIVE (NEGATIVE); URINE BLOOD DIPSTICK NEGATIVE (NEGATIVE); URINE COLOR YELLOW; URINE GLUCOSE - DIPSTICK NEGATIVE (NEGATIVE); URINE KETONE NEGATIVE (NEGATIVE); URINE PROTEIN - DIPSTICK 30 mg/dL (NEG-TRACE); URINE UROBILINOGEN - DIPSTICK 0.2 E.U./dL (0.2)
[2020-04-18 11:02] LABS: HEMATOCRIT 34.1 % (37.0-47.0); HEMOGLOBIN 10.7 g/dl (12.0-16.0); IMMATURE GRANULOCYTES 0.3 % (0.0-5.0); MEAN CELL VOLUME 87.7 fL CALC (80.0-100.0); MEAN CORPUSCULAR HGB 27.5 pG CALC (26.0-32.0); MEAN CORPUSCULAR HGB CONC 31.4 g/dL CAL (32.0-36.0); NEUT# 2.68 thou/uL (2.00-7.15); RED BLOOD COUNT 3.89 mill/uL (4.20-5.60); RED CELL DISTRI WIDTH 15.1 % (11.5-15.5)
[2020-04-18 11:14] LABS: URINE LEUK ESTERASE MODERATE (NEGATIVE); URINE NITRITE - DIPSTICK POSITIVE (Negative)
[2020-04-18 11:26] LABS: URINE BACTERIA MANY hpf; URINE SQUAMOUS EPITHELIAL CELL FEW EPI/hpf (0-FEW); URINE WBC TNTC WBC/hpf (0-5)
[2020-04-18 11:27] LABS: ALBUMIN 3.5 g/dL (3.2-5.0); ALKALINE PHOSPHATASE 60 u/l (38-126); ANION GAP 9 (6-22 (CALC)); BILIRUBIN, TOTAL 0.4 mg/dL (0.0-1.4); BUN 11 mg/dL (8-23); BUN/CREATININE RATIO 30 (12-20 (CALC)); CARBON DIOXIDE 29 mmol/l (22-30); CHLORIDE 99 mmol/l (95-108); CREATININE 0.4 mg/dL (0.5-1.0); GFR > 60 ML/MIN (>=60 (CALC)); GFR FOR AFR.AMER. > 60 ML/MIN (>=60 (CALC)); LIPASE 25 u/l (23-300); SGOT/AST 20 u/l (9-36); SODIUM 133 mmol/l (137-146); TOTAL PROTEIN 6.4 g/dL (6.3-8.2)
[2020-04-18 11:30] LABS: AMYLASE < 30 u/l (30-110)
[2020-04-18 11:37] LABS: ACT PARTIAL THROMBO TIME 25.7 SECONDS (20.0-32.5); INTERNATIONAL NORMALIZED RATIO 1.2 RATIO (0.7-1.3); PROTHROMBIN TIME 12.1 SECONDS (9.0-12.5)
--- NOTE | 2020-04-18 11:40 | NUR ---
PT MEDICATED PER MAR; PT NONVERBAL; NO S/S OF DISTRESS NOTED; MONITORING DEVICES IN PLACE; VSS; WILL CONTINUE TO MONITOR
--- NOTE | 2020-04-18 12:40 | NUR ---
PT RESTING ON STRETCHER; POA AT BEDSIDE; ADVISED OF POC; DENIES ANY NEEDS AY THIS TIME; WILL CONTINUE TO MONITOR
[2020-04-18] MEDS ORDERED: DRIZALMA SPRINK30 MG PO (13:01)
[2020-04-18] MEDS ORDERED: MELATONIN PO (13:02)
[2020-04-18] MEDS ORDERED: ACIDOPHILU4 PO (13:02)
[2020-04-18] MEDS ORDERED: GABAPENTIN100 MG PO (13:03)
[2020-04-18] MEDS ORDERED: CHEST CONGESTI400 MG PO (13:03)
--- NOTE | 2020-04-18 13:30 | NUR ---
RT AT BEDSIDE FOR SUCTIONING; PT TOLERATED WELL; ADVISED OF CONTINUE WAIT TIME; VSS; WILL CONTINUE TO MONITOR
--- NOTE | 2020-04-18 14:30 | NUR ---
PT ARRIVED TO ICU ROOM 1 VIA STRETCHER WITH ER STAFF; EYES OPEN, BUT OTHERWISE NONVERBAL; PT DOES NOT MAKE EYE CONTACT OR FOLLOW COMMANDS; DOES NOT RESPOND TO QUESTIONS. NO S/S OF PAIN OR DISCOMFORT. RESPIRATIONS EVEN AND UNLABORED ON OXYGEN 2L VIA TRACHEOSTOMY; PRODUCTIVE COUGH WITH THICK GREEN SPUTUM. PT TRANSFERRED ONTO BED WITH 4 PERSON ASSIST; UNABLE TO PARTICIPATE IN TRANSFER; PT IS A TOTAL CARE AND DOES NOT MOVE. INCONTINENT EPISODE OF DIARRHEA ON ARRIVAL; HYGEINE PROVIDED. PEG TUBE TO ABDOMEN; PLACEMENT VERIFIED VIA AUSCULATION WITH ADMINSTRATION OF AIR; SITE CLEANSED AND NEW DRESSING APPLIED. CANELA CATHETER DRAINING CLOUDY YELLOW URINE; CHRONIC CANELA PLACED ON 03/27/20 ACCORDING TO AUMILAGRO/CAREGIVER. IV SITE APPEARS HEALTHY AND FLUSHES; LEVAQUIN INITIATED ON ARRIVAL. PLACED ON AIRBORNE/CONTACT PRECAUTIONS FOR PENDING COVID SWAB. PT HAS FACIAL FLUSHING; TEMP 98.0. SEVERE PSORIASIS TO BACK AND BUTTOCK; SOME SKIN BREAKDOWN TO COCCYX APPEARS MOISTURE ASSOCIATED. GENERALIZED 1+ PITTING EDEMA, DEPENDENT TO HANDS; 4+ PEDAL EDEMA; FOOT DROP; MILD BLANCHABLE REDNESS TO HEELS; HEEL PROTECTORS APPLIED. LUNG SOUNDS ARE COURSE; HR IRREGULAR WITH MURMUR. SAFETY MEASURES IN PLACE. NEEDS ARE ANTICIPATED BY STAFF.
--- NOTE | 2020-04-18 14:30 | NUR ---
Admission Note Report Given to: CARLOS ENRIQUE WELCH Transported by: Wheelchair X Stretcher Transported with: X Nurse Transporter X Patent IV X O2 X Coiled Coil Inspector Location: X ICU MS2
--- NOTE | 2020-04-18 15:30 | NUR ---
SPOKE TO [facility]; PT'S BASELINE INCLUDES ABILITY TO NOD HEAD IN RESPONSE TO YES OR NO QUESTIONS, MAKE EYE CONTACT, AND FOLLOW FACIAL COMMANDS. CURRRENTLY ONLY KEEPS EYES OPEN AND DOES NOT RESPOND OR MAKE EYE CONTACT. HOME FEEDING SCHDULE INCLUDES GLUCERNA 1.0 WAQAR; 1 CAN FOR BREAKFAST, 2 CANS FOR LUNCH, AND 2 CANS FOR DINNER. ORDERS RECEIVED FOR ACCU CHECK ACHS WITH SLIDING SCALE COVERAGE AND REPLACEMENT POTASSIUM.
[2020-04-18] MEDS ORDERED: EFFER-K25 MEQ PO (15:39)
--- NOTE | 2020-04-18 18:00 | NUR ---
ACCU CHECK 118. PT POSITIONED IN HIGH FOWLERS; BOLUS FEEDING OF JEVITY 1.5 GIVEN VIA PEG TUBE WELL POTASSIUM 40 MEQ; EVENING LOPRESSOR FOR ELEVATED BLOOD PRESSURE; AND TYLENOL FOR GENERAL DISCOMFORT. ORAL CARE GIVEN.
--- NOTE | 2020-04-18 20:53 | NUR ---
PATIENT IS AWAKE, MAKES EYE CONTACT WHEN SPOKEN TO AT TIMES. GUARDS HERSELF WHEN TRYING TO REPOSITION HER UE. PATIENT'S O2 SAT IS 100%, RT WAS CALLED TO VERIFY OXYGEN SUPPLEMENTATION, RT PLACED ON 28% ON AEROSOL MASK THROUGH PATIENT'S TRACHESOTOMY. PT WAS SUCTIONED, PT HAS YELLOW/THICK PHLEGM THROUGH TRACH. MOUTH CARE PROVIDED, PT DID ALLOW ME TO CLEAN HER MOUTH WITH A SWAB ONCE, WHEN I ATTEMPTED TO RESWAB SHE WOULD NOT OPEN HER MOUTH. PT WAS GIVEN THE REST OF THE POTASSIUM THROUGH HER PEG TUBE WELL REST OF BEDTIME MEDS, PEG WAS ALSO FLUSHED AFTER. CANELA CATH INTACT, DRAINS YELLOW/CLOUDY URINE. LWR IV INTACT AND FLSUHES PROPERLY. AFEBRILE. SR ON TELE. BP ELEVATED, DR DENNEY NOTIFIED AND NEW PRN IV MED ORDERED FOR SYSTOLIC BP GREATER THAN 170 MMHG. UE AND LE ELEVATED, HEEL PROTECTORS IN PLACE. HOB 45 DEGREES. NURSING ASSESSMENT PERFORMED. CALL LIGHT WITHIN REACH.
--- NOTE | 2020-04-18 21:19 | NUR ---
NOTIFIED DR DENNEY OF PT'S ELEAVTED BP, NEW ORDERS GIVEN.
--- NOTE | 2020-04-18 22:20 | NUR ---
PT PULLED UP AND REPOSITIONED, TURNED TO HER LEFT SIDE. UE AND LE ELEVATED WITH PULLOWS, HEEL PROTECTORS REMAIN IN PLACE. IV PRN APRESOLINE GIVEN FOR BP SYSTOLIC 175/ 73. PT AWAKENS WITH PAINFUL STIMULI, MAKES FACIAL GRIMACES WITH PAINFUL STIMULI. HOB 30 DEGREES. PT RESTS WITH HER EYES CLOSED NOW.
[2020-04-19] VITALS (21 sets, daily range): BP systolic 119–176; BP diastolic 53–96
--- NOTE | 2020-04-19 01:00 | NUR ---
PT REPOSITIONED. PT AWAKENS EASILY WITH PAINFUL STIMULI. AFEBRILE. UE AND LE REMAIN ELEVATED, HEELS PROTECTORS IN PLACE.
--- NOTE | 2020-04-19 04:50 | NUR ---
PT AWAKENS WITH PAINFUL STIMULI. DOES GRIMACE WHEN REPOSITIONING. COMPLETE BED BATHE PROVIDED, LINENS CHANGED, MOUTH CARE PROVIDED, DRESSING ON TRACH CHANGED DUE TO SOILING FROM PHLEGM, AREA WAS CLEAN AND NEW DRESSING APPLIED. PT DOES REQUIRE PRN SUCTIONINF FROM TRACH, PRODUCES MODERATE AMOUNTS OF GREEN THICK PHLEGM. UE AND LE ELEVATED, HEEL PROTECTORS INTACT. PULLED UP AND REPOSITIONED TO LEFT SIDE. AFEBRILE. CANELA EMPTIED. SR ON TELE. BP 140'S-150'S SYSTOLIC. SATS 96% ON 28% ON AEROSOL MASK. CALL LIGHT WITHIN REACH.
--- NOTE | 2020-04-19 07:00 | NUR ---
REPORT RECEIVED FROM CARLOS ENRIQUE FONTENOT. PT RESTING SEMI FOWLERS WITH EYES CLOSED AND NO SIGNS OF DISTRESS; RESPIRATIONS EVEN AND UNLABORED ON 28% ARESOL MASK WITH TRACH TUBE. PT RESPONDS TO PERSISTENT TACTILE STIMULATION, BUT REMAINS NONVERBAL WHICH IS BASELINE. VSS. SAFETY MEASURES IN PLACE. NEEDS ANTICIPATED BY STAFF.
--- NOTE | 2020-04-19 08:29 | NUR ---
CALLED [facility] CARRERO PLACED ORDER FOR AIR MATRESS SPOKE TO SCAR GAVE CONFORMATION #[id number]
--- NOTE | 2020-04-19 08:56 | NUR ---
AM MEDS ADMINISTERED VIA PEG TUBE ALONG WITH 1 CAN OF JEVITY 1.5; NO RESIDUAL PRIOR TO FEEDING. PLACED IN HIGH YANG FOR FEEDING; ORAL CARE PROVIDED. DR. DENNEY AT BEDSIDE. NEW ORDER TO OBTAIN STOOL SPECIMEN FOR CDIFF. CANELA DRAINING CLEAR YELLOW URINE. ALL EXTREMITIES ELEVATED ON PILLOWS. NEW ORDER FOR AIR MATTRESS.
[2020-04-19 09:12] LABS: HEMATOCRIT 33.2 % (37.0-47.0); HEMOGLOBIN 10.3 g/dl (12.0-16.0); IMMATURE GRANULOCYTES 0.2 % (0.0-5.0); MEAN CELL VOLUME 88.3 fL CALC (80.0-100.0); MEAN CORPUSCULAR HGB 27.4 pG CALC (26.0-32.0); NEUT# 2.64 thou/uL (2.00-7.15); RED BLOOD COUNT 3.76 mill/uL (4.20-5.60); RED CELL DISTRI WIDTH 15.2 % (11.5-15.5)
[2020-04-19 09:27] LABS: ANION GAP 9 (6-22 (CALC)); BUN 11 mg/dL (8-23); BUN/CREATININE RATIO 31 (12-20 (CALC)); CARBON DIOXIDE 26 mmol/l (22-30); CHLORIDE 101 mmol/l (95-108); CREATININE 0.4 mg/dL (0.5-1.0); GFR > 60 ML/MIN (>=60 (CALC)); GFR FOR AFR.AMER. > 60 ML/MIN (>=60 (CALC)); POTASSIUM 3.5 mmol/l (3.5-5.1); SODIUM 133 mmol/l (137-146)
--- NOTE | 2020-04-19 10:22 | NUR ---
RT AT BEDSIDE FOR CPT AND SUCTIONING. PT RESPOSITIONED ONTO LEFT SIDE. NO INCONTINENCE AT THIS TIME.
--- NOTE | 2020-04-19 10:24 | NUR ---
CPT PERFORMED VIA PERCUSSOR.
--- NOTE | 2020-04-19 12:29 | NUR ---
INCONTINENT OF LARGE LIQUID BOWEL MOVEMENT; CANELA CARE AND HYGIENE PROVIDED. PT POSITIONED INTO HIGH FOWLERS FOR TUBE FEEDING; PT TOLERATED WELL; 40 ML OF RESIDUAL PRIOR TO FEED.
[2020-04-19 13:15] LABS: C. DIFFICILE TOXIN A&B NEGATIVE (NEGATIVE)
--- NOTE | 2020-04-19 13:59 | NUR ---
STOOL SAMPLE SENT TO LAB AND NEGATIVE FOR CDIFF.
--- NOTE | 2020-04-19 14:36 | NUR ---
ASSISTED TO AIRMATTRESS X 3 PERSON ASSIST. POSITIONED ONTO RIGHT SIDE WITH PILLOWS; BLE ELEVATED ON PILLOWS. LEVAQUIN INFUSING AT THIS TIME.
--- NOTE | 2020-04-19 15:21 | NUR ---
CPT PERFORMED VIA PERCUSSOR. PT TOLERATED WELL.
--- NOTE | 2020-04-19 17:50 | NUR ---
RESTING HIGH FOWLERS; TOLERATED DINNER FEED WELL WITH NO RESIDUAL. PT CLAMPS MOUTH SHUT WHEN ATTEMPTING ORAL CARE. 425 ML OF NITHYA CLOUDY URINE EMPTIED FROM CANELA. PT ALSO NOW HAS PAIN REFLEX; LIGHTLY PULLS HAND AWAY DURING FINGER STICK AND HAS FACIAL GRIMACING AT TIMES. CONTINUES ON 28% HUMIDIFIED OXYGEN VIA AEROSOL MASK; SPO2 100%. WILL CONTINUE TO MONITOR.
--- NOTE | 2020-04-19 19:01 | NUR ---
PT'S CAREGIVER DROPPED OFF TWO OF PATIENT'S HOME MEDICATIONS, DEPAKOTE AND MELATONIN. MEDS TO BE SENT TO [facility] IN AM.
--- NOTE | 2020-04-19 19:33 | NUR ---
PATIENT IS AWAKE, MAKES EYE CONTACT, DOES HAVE WEAK OLIVE PICKER ON RIGHT HAND. PT IS ON 28% ON AEROSOL MASK, SATS 99%. NURSIN ASSESSMENT PERFORMED. AFEBRILE. IV X1 INTACT AND FLSUHES PROPERLY, APRESOLINE IV PRN GIVEN DUE TO BP GREATER THAN 170 MMHG SYSTOLIC. AIR MATRESS ON, HEEL PROTECTORS IN PLACE. FEET ELEVATED WITH PILLOW. CANELA INTACT, DRAINS YELLOW/ CLOUDY URINE. HOB DOWN TO 30 DEGREES. PT REFUSED TO OPEN HER MOUTH FOR MOUTH CARE. CALL LIGHT WITHIN REACH. TV IS ON.
--- NOTE | 2020-04-19 19:54 | NUR ---
PT IS SINUS TACH ON TELEMETRY, HR 109 BPM. PATIENT DOES MAKES FACIAL GRIMACES WHEN REPOSITIONING ARMS, WAS GOING TO PROVIDE TYLENOL, CHECKED RESIDUAL AND IT WAS 250 ML, WILL HOLD TYLENOL AND DEPAKOTE AT THIS TIME, WILL RECHECK RESIDUAL.
--- NOTE | 2020-04-19 21:20 | NUR ---
ALL BEDTIME MEDS PROVIDED, INCLUDING TYLENOL AND DEPAKOTE. RESDUAL WAS CHECKED BFORE PROVIDING MEDS, RESIDUAL WAS 40 ML. PT IN HIGH YANG'S. PT DOES DO FACIAL GRIMACES WITH PAINFUL STIMULI, SUCH WHEN PROVIDING SQ LOVENOX OR DONG ACCUCHECK. PT HEAR RATE 97-104 BPM. WILL CONTINUE TO MONITOR. LIGHTS TURNED OFF AND TV VOLUME TURNED DOWN.
[2020-04-20] VITALS (16 sets, daily range): BP systolic 114–193; BP diastolic 48–94
--- NOTE | 2020-04-20 00:45 | NUR ---
PATIENT'S HOB AT 30 DEGREES, IS AWAKE BUT DROWSY, YAWNS. NO ACUTE DISTRES SHOWN. AFEBRILE. SR ON TELE. BP WNL. SATS 10% ON 28% ON AEROSOL MALSK.
--- NOTE | 2020-04-20 04:25 | NUR ---
PATIENT RESTS WITH EYES CLOSED. NO ACUTE DISTRES SHOWN. AFEBRILE, O2 SAT 100%, BP WNL. SR ON TELEMETRY.
[2020-04-20 05:46] LABS: HEMATOCRIT 29.6 % (37.0-47.0); HEMOGLOBIN 9.2 g/dl (12.0-16.0); IMMATURE GRANULOCYTES 0.3 % (0.0-5.0); MEAN CELL VOLUME 88.4 fL CALC (80.0-100.0); MEAN CORPUSCULAR HGB 27.5 pG CALC (26.0-32.0); MEAN CORPUSCULAR HGB CONC 31.1 g/dL CAL (32.0-36.0); NEUT# 2.16 thou/uL (2.00-7.15); RED BLOOD COUNT 3.35 mill/uL (4.20-5.60); RED CELL DISTRI WIDTH 15.4 % (11.5-15.5)
--- NOTE | 2020-04-20 05:50 | NUR ---
PATIENT AWAKENS EASILY WHEN SPOKEN TO. PT MAKES EYE CONTACT. DOES FACIAL GRIMACES WITH PAINFUL STIMULI. PT ATTEMPTS TO LIFT ARMS UP WHEN REPOSITIONING. HOB 30 DEGREES, CANELA CATH BAG EMPTIED, ATTEMPTED TO PROVIDE ORAL CRAE, PT KEEPS MOUTH CLOSED. NO ACUTE DISTRESS SHOWN. CALL LIGHT WITHIN REACH.
[2020-04-20 05:59] LABS: ANION GAP 8 (6-22 (CALC)); BUN 13 mg/dL (8-23); BUN/CREATININE RATIO 35 (12-20 (CALC)); CARBON DIOXIDE 27 mmol/l (22-30); CHLORIDE 100 mmol/l (95-108); CREATININE 0.4 mg/dL (0.5-1.0); GFR > 60 ML/MIN (>=60 (CALC)); GFR FOR AFR.AMER. > 60 ML/MIN (>=60 (CALC)); POTASSIUM 3.2 mmol/l (3.5-5.1); SODIUM 132 mmol/l (137-146)
--- NOTE | 2020-04-20 06:03 | NUR ---
CPT DONE TO ANTERIOR LUNG LUNA. NO COUGH EFFORT. PATIENT WEARING 28% AEROSOL TRACH MASK WIHT SPO2 99%. TOLERATED WELL.
--- NOTE | 2020-04-20 07:20 | NUR ---
pt resting in bed with eyes open; no apparent distress noted; assessment completed at this time; pt alert; nonverbal; turns head to speaker when name is called; no s/sx of pain noted; no n/v noted; resp even and unlabored; lungs coarse/ diminished bases; skin color pale; o2 per aerosol trach mask at 28%; trache dressing cdi; hr reg; strong pulses; 2+ generalized edema noted; sr on monitor; abd soft with bs present; no bm noted per commercial insurance underwriter; peg tube intact to right abd; no drainage noted at peg insertion site; jurado to gravity draining cloudy yellow urine; #20 intact to lh; no redness or edema noted at site; dressing cdi to coccyx; air mattress intact; pt repositioned; feet floated/ heel protectors intact; arms elevated on pillows; call light within reach; will continue to monitor
--- NOTE | 2020-04-20 08:03 | NUR ---
resting in bed with eyes open; sr on monitor; jurado to gravity; iv intact; trache mask intact; will continue to monitor
--- NOTE | 2020-04-20 08:16 | NUR ---
Dr Poon present at bedside to assess pt and discuss plan of care
--- NOTE | 2020-04-20 08:50 | NUR ---
am meds administered via peg tube; no residual noted prior to; tube feed given; hob remains elevated oral cavity cleansed with toothette; pt orally suctioned for scant white content; repositioned to left side; jurado to gravity; will continue to monitor
--- NOTE | 2020-04-20 09:44 | NUR ---
RT at bedside; deep suctioned; inner trach cannula changed per RT; dressing changed to trach; will continue to monitor
--- NOTE | 2020-04-20 09:45 | NUR ---
CPT PERFORMED VIA PERCUSSOR. FOLLOWED WITH SUCTION.
--- NOTE | 2020-04-20 10:06 | NUR ---
resting in bed with eyes closed; no apparent distress noted; sr on monitor; jurado to gravity; iv intact; air mattress; o2 via trach mask; will continue to monitor
--- NOTE | 2020-04-20 12:29 | NUR ---
awake in bed; no apparent distress noted; iv intact; sb on monitor; jurado to gravity; o2 per trach collar; air mattress; repositioned to right side; oral care; will continue to monitor
--- NOTE | 2020-04-20 12:44 | NUR ---
Patient has no rehab needs at this time
--- NOTE | 2020-04-20 14:00 | NUR ---
awake in bed; no apparent distress noted; repostioned; peg tube residual 5cc; tube feed administered, 2 cans Jevity 1.5cal; hob elevated; jurado to gravity; sb on monitor; o2 per trach collar; air mattress; will continue to monitor
--- NOTE | 2020-04-20 15:00 | NUR ---
Dr Blank on unit of assess wound
--- NOTE | 2020-04-20 15:20 | NUR ---
pt cleansed of xlg liquid brown stool; complete bed bath and linen change; redness/ open area noted to sacrum; redness noted to breast folds, groin, inner thigh folds, buttocks and sacrum; pics obtained of sacrum; repositioned; jurado to gravity; hob elevated; sr on monitor; bp elevated with activity; trach collar intact with 28% o2; will continue to monitor
--- NOTE | 2020-04-20 16:00 | NUR ---
awake in bed; no apparent distress noted; iv intact; jurado to gravity; o2 per trach collar; air mattress; will continue to monitor
--- NOTE | 2020-04-20 16:58 | NUR ---
CPT PERFORMED VIA PERCUSSOR.
--- NOTE | 2020-04-20 17:56 | NUR ---
resting in bed with eyes closed; no apparent distress noted; o2 per trach colloar; jurado to gravity; air mattress intact; sr on monitor; repositioned; call light within reach
--- NOTE | 2020-04-20 19:00 | NUR ---
RECEIVED REPORT FROM AM NURSE. PATIENT RESTING IN BED. PATIENT DOES NO APPEAR TO BE IN IN DISTRESS. VITALS STABLE. WILL CONTINUE TO MONITOR.
--- NOTE | 2020-04-20 20:00 | NUR ---
ASSESSMENT COMPLETED. PATIENT OPENS EYES BUT DOES NOT FOLLOW COMMANDS AND IS NONVERBAL. PATIENT DOES NO APPEAR TO BE IN ANY DISTRESS. PATIENT BP ELEVATED. PRN APRESOLINE GIVEN. PATIENT RESTING IN BED. CANELA WITH GOOD OUTPUT. PATIENT CONTINUES ON TRACH COLLAR O2 5L/28% HUMIDIFIED. WILL CONTINUE TO MONITOR PATIENT.
--- NOTE | 2020-04-20 21:00 | NUR ---
PATIENT GIVEN ORAL CARE. PATIENT RESTING IN BED. PATIENT WITH SIGNS OF DISTRESS. WILL CONTINUE TO MONITOR.
--- NOTE | 2020-04-20 22:00 | NUR ---
PATIENT MEDICATED. PATIENT TURNED AND REPOSITIONED. BOLUS FEED ADMINISTERED. PATIENT WITH NO RESIDUAL. TOLERATED FEEDING WELL. PATIENT HAD LOOSE BM. PATIENT TURNED AND CHANGED. WOUND PASTE APPLIED. PATIENT CONTINUES WITH TRACH COLLAR. PATIENT WITH NO DISTRESS. WILL CONTINUE TO MONITOR PATIENT.
[2020-04-21] VITALS (13 sets, daily range): BP systolic 116–196; BP diastolic 55–88
--- NOTE | 2020-04-21 | NUR ---
PATIENT RESTING IN BED. PATIENTS VITALS STABLE. PATIENT WITH NO SIGNS OF PAIN OR DISCOMFORT. PATIENT TURNED AND REPOSITIONED. WILL CONTINUE TO MONITOR PATIENT.
--- NOTE | 2020-04-21 02:00 | NUR ---
PATIENT TURNED AND REPOSITIONED. PATIENT VITALS STABLE. PATIENT WITH SIGNS OF DISTRESS. WILL CONTINUE TO MONITOR PATIENT.
--- NOTE | 2020-04-21 04:00 | NUR ---
PATIENT TURNED AND REPOSTIONED. PATIENT DID HAVE A SMALL BM. PATIENT WITH 700 OUTPUT FROM CANELA. PATIENT IN NO DISTRESS. PATIENT PROVIDED MOUTH CARE. WILL CONTINUE TO MONITOR.
[2020-04-21 05:22] LABS: HEMATOCRIT 31.5 % (37.0-47.0); HEMOGLOBIN 9.8 g/dl (12.0-16.0); MEAN CELL VOLUME 88.7 fL CALC (80.0-100.0); MEAN CORPUSCULAR HGB 27.6 pG CALC (26.0-32.0); MEAN CORPUSCULAR HGB CONC 31.1 g/dL CAL (32.0-36.0); RED BLOOD COUNT 3.55 mill/uL (4.20-5.60); RED CELL DISTRI WIDTH 15.1 % (11.5-15.5)
--- NOTE | 2020-04-21 05:40 | NUR ---
CPT DONE TO ANTERIOR LUNG LUNA. NO COUGH EFFORT. PATIENT ON 28% AEROSOL TRACH COLLAR. TOLERATED WELL.
[2020-04-21 05:57] LABS: ANION GAP 9 (6-22 (CALC)); BUN 16 mg/dL (8-23); BUN/CREATININE RATIO 43 (12-20 (CALC)); CARBON DIOXIDE 28 mmol/l (22-30); CHLORIDE 102 mmol/l (95-108); CREATININE 0.4 mg/dL (0.5-1.0); GFR > 60 ML/MIN (>=60 (CALC)); GFR FOR AFR.AMER. > 60 ML/MIN (>=60 (CALC)); MAGNESIUM 1.8 mg/dL (1.6-2.3); SODIUM 135 mmol/l (137-146)
--- NOTE | 2020-04-21 06:01 | NUR ---
PT RESTING IN BED WITH EYES CLOSED. RESP ARE EVEN AND UNLABORED. VSS ON MONITOR. CALL LIGHT IN REACH. WILL CONTINUE TO MONITOR
--- NOTE | 2020-04-21 06:45 | NUR ---
RECIEVED REPORT FROM CARLOS ENRIQUE MIRANDA. ASSUMED PT CARE.
--- NOTE | 2020-04-21 07:00 | NUR ---
PT ALERT, NON-VERBAL. TRACH IN PLACE, RESPIRATIONS EVEN/UNLABORED, PT CONTINUES WITH +2 PEDAL EDEMA. ASSESSMENT COMPLETE. WILL MONITOR.
--- NOTE | 2020-04-21 08:00 | NUR ---
DR. VELASQUEZ AND BENEDICTO DUPREE AT BEDSIDE FOR ASSESSMENT AND TO DISCUSS PLAN OF CARE. NEW ORDERS RECIEVED.
--- NOTE | 2020-04-21 08:40 | NUR ---
BOLUS FEEDING DONE, FLUSHED PRIOR AND AFTER FEEDING ORDERED, PLACEMENT VERIFIED VIA AUSCULTATION, 0 RESIDUAL NOTED AT THIS TIME. PT TOLERATED WELL.
--- NOTE | 2020-04-21 10:10 | NUR ---
PT GRANDEARLINE CALLED, UNABLE TO PROVIDE PT CODE. EDUCATED GRANDAUGHTER THAT TO GIVE INFO PT CODE REQUIRED. GRANDDAUGHTER BECAME HOSTILE AND ASKED TO SPEAK WITH BRAKE REPAIR MECHANIC, PT MATTHIAS TRANSFERRED TO BRAKE REPAIR MECHANIC .
--- NOTE | 2020-04-21 11:58 | NUR ---
BOLUS GIVEN AFTER PLACEMENT VERIFIED VIA AUSCULTATION, FLUSHED ORDERED. PT TOLERATED WELL. WILL MONITOR.
--- NOTE | 2020-04-21 13:02 | NUR ---
RT AT BEDSIDE FOR TREATMENT.
--- NOTE | 2020-04-21 13:14 | NUR ---
CPT performed for 10 minutes with percussor machine. Pt orestes well.
--- NOTE | 2020-04-21 14:15 | NUR ---
PT INC OF BM, COMPLETE BED BATH. LINEN CHANGE AND CANELA CARE DONE. DR. SORIANO AT BEDSIDE FOR WOUND CARE. PT TOLERATED WELL. WILL MONITOR.
--- NOTE | 2020-04-21 16:06 | NUR ---
PT RESTING IN BED WITH EYES CLOSED, NO DISTRESS NOTED AT THIS TIME. WILL MONITOR.
--- NOTE | 2020-04-21 19:45 | NUR ---
RESTING IN BED WITH EYES CLOSED, EYES OPEN SPONTANEOUSLY. DOES NOT FOLLOW COMMANDS AND NOT APPEARING TO TRACK SPEAKER. RESP NON-LABORED. LUNGS COARSE IN UPPER LOBES, DIMINISHED IN BILATERAL BASES. O2 TO TRACH VIA TRACH COLLAR AT 5 L (28%) WITH HUMIDITY. G-TUBE IN PLACE, CLAMPED AT THIS TIME. ABD SOFT WITH ACTIVE BOWEL SOUNDS. CANELA DRAINS SLT CLOUDY YELLOW URINE. 1= PITTING EDEMA OF BLE-MILD GENERALIZED EDEMA. HEELS ELEVATED OFF BED ON PILLOWS AND HELL PROTECTORS IN PLACE. PATIENT IS ON AN AIR MATTRESS. SALINE LOCK IN PLACE IN , SITE BENIGN, FLUSHED AND PATENT.
--- NOTE | 2020-04-21 21:45 | NUR ---
SPOEK WITH PATIENT AUELADIATER/POA/CAREGIVER, UPDATED ON PATIENT CONDITION.
[2020-04-22] VITALS (11 sets, daily range): BP systolic 135–189; BP diastolic 63–84
--- NOTE | 2020-04-22 00:02 | NUR ---
TURNED AND REPOSITONED. NO CHANGES TO REPORT.
--- NOTE | 2020-04-22 03:00 | NUR ---
NO CHAGES TO REPORT.
--- NOTE | 2020-04-22 05:48 | NUR ---
CPT DONE TO ANTERIOR LUNG LUNA. NO COUGH EFFORT. PATIENT WEARING 28% AEROSOL TRACH COLLAR. TOLERATED WELL.
--- NOTE | 2020-04-22 06:20 | NUR ---
INCONTINENT OF LARGE AMOUNT OF LIQUID STOOL. PARTIAL BATH GIVEN, NADEEM-CARE. PARTIAL BED CHANGE. TURNED AND REPOITIONED.
--- NOTE | 2020-04-22 07:50 | NUR ---
Dr Poon present at bedside to assess pt and discuss plan of care
--- NOTE | 2020-04-22 08:10 | NUR ---
pt resting in bed with eyes closed; open eyes when name is called; no apparent distress noted; assessment completed at this time; pt non verbal; no s/sx/ grimaces of pain noted; no n/v noted; resp even and unlabored; lungs coarse/ diminished bases; skin color pale; o2 per trach collar at 28% humidified; dressing to trach cdi; hr reg; strong pulses; 2+ generalized edema noted; sr on monitor; abd soft with bs present; no bm noted per conventional underwriter; peg tube intact to right abd; no residual noted from peg; jurado to gravity draining cloudy yellow urine; #20 flushed and patent to lh; no redness or edema noted; redness noted to inner thighs/groin; open area noted to sacrum; wounds care as per orders; repositioned to left side; hob elevated; am meds and tube feed administed; air mattress intact; feet floated with heel protectors intact; will continue to monitor
--- NOTE | 2020-04-22 10:13 | NUR ---
resting with eyes closed; no apparent distress noted; jurado to gravity; iv intact; air mattress in place; call light within reach; will continue to monitor
--- NOTE | 2020-04-22 12:00 | NUR ---
resting with eyes closed; no apparent distress noted; jurado to gravity; air mattress intact; iv intact; will continue to monitor
--- NOTE | 2020-04-22 13:55 | NUR ---
awake; RT at bedside; jurado to gravity; iv intact; o2 via trach collar; will continue to monitor
--- NOTE | 2020-04-22 13:58 | NUR ---
CPT GIVEN BILAT WITH PERCUSSOR FOR 10 MIN. B/S ARE COARSE BILAT. NO COUGH.
--- NOTE | 2020-04-22 14:30 | NUR ---
complete bed bath and linen change; pt incont of lg liquid brown stool; catheter care and wound care administered; repositioned to left side; jurado to gravity; air mattress working properly; will continue to monitor
--- NOTE | 2020-04-22 15:51 | NUR ---
consult completed with Dr Sinha as per Dr Poon request for recommendations on abt length for positive sputum and urine cult
--- NOTE | 2020-04-22 16:15 | NUR ---
resting with eyes closed; trach collar with 28% o2; jurado to gravity; iv intact; hob elevated; will continue to monitor
--- NOTE | 2020-04-22 18:10 | NUR ---
awake in bed; face flushed; no apparent distress noted; pt feels warm to touch; afebrile; jurado catheter removed and replaced as per ID recommendation and Dr Hawkins orders; cath strap applied; repositioned; o2 per trach collar; tube feed completed at this time; no residual noted; hob elevated;
--- NOTE | 2020-04-22 19:44 | NUR ---
PATIENT AWAKENS WITH VERBAL AN DPAINFUL STIMULI. PATIENT ROMERO MAKE EYE CONTACT, FACIAL GRIMACES WITH PAINFUL STIMULI, AND DOES GUARD HERSELF WHEN ATTEMPTING TO REPOSITION HER ARMS. NURSING ASSESSMENT PERFORMED. AFEBRILE. BP 180'S SYTOLIC, HR 98 BPM, SATS 99% ON TRACH MASK AT 28%. PT REPOSITIONED, MAX X2. L-H IV INTCAT AND FLSUHESS PROPERLY. AIR MATRESS INTACT, HEELS ELEVATED AND HEEL PROTECTORS IN PLACE. PEG DRESSING CDI. NO PHLEGM NOTED FROM TRACH.
--- NOTE | 2020-04-22 20:20 | NUR ---
BEDTIME MEDS GIVEN INCLUDING LOPRESSOR, DUE TO PATIENT'S BP ELEVATED. TYLENOL GIVEN FOR COMFORT AND PATIENT'S FACIAL GRIMACES AFTER ALL REPOSITIONING, PT DID HAVE ABOUT 100 ML OF RESIDUAL FROM PEG TUBE, WILL MONITOR. PATIENT WAS PLACED IN HIGH YANG'S.
--- NOTE | 2020-04-22 21:00 | NUR ---
PATIENT'S ANTIBIOTIC FINSIHED TRANSFUSING, IV X1 INTACT AND FLUSHES PROPERLY.
[2020-04-23] VITALS (7 sets, daily range): BP systolic 159–204; BP diastolic 71–89
--- NOTE | 2020-04-23 00:06 | NUR ---
RESIDUAL CHECKED AND NO RESIDUAL AT THIS TIME. BP 150'S SYSTOLIC, PT RESTS WITH EYES CLSOED. NO ACUTE DISTRESS SHOWN.
--- NOTE | 2020-04-23 02:37 | NUR ---
PT REPOSITIONED. AWAKENS EASILYL WITH PAINFUL STIMULI. TRACH SUCTIONED, SCANT AMOUNT OF GREEN PHLEGM SUCTIONED. NO ACUTE DISTRESS SHOWN.
--- NOTE | 2020-04-23 04:59 | NUR ---
NO BM NOTED, PT PULLED UP AND PLACED ON HER BACK. HOB 30 DEGREES. PT AWAKENS WITH PAINFUL STIMULI.
--- NOTE | 2020-04-23 05:15 | NUR ---
NEW IV PLACED ON R-H 22 G. L-H IV REMOVED. PT TOLERATED WELL. LABS DRAWN.
[2020-04-23 06:03] LABS: ANION GAP 7 (6-22 (CALC)); BUN 20 mg/dL (8-23); BUN/CREATININE RATIO 62 (12-20 (CALC)); CARBON DIOXIDE 28 mmol/l (22-30); CHLORIDE 102 mmol/l (95-108); CREATININE 0.3 mg/dL (0.5-1.0); GFR > 60 ML/MIN (>=60 (CALC)); GFR FOR AFR.AMER. > 60 ML/MIN (>=60 (CALC)); MAGNESIUM 1.8 mg/dL (1.6-2.3); POTASSIUM 3.5 mmol/l (3.5-5.1); SODIUM 134 mmol/l (137-146)
--- NOTE | 2020-04-23 07:00 | NUR ---
REPORT RECEIVED FROM CARLOS ENRIQUE BRANNON.
--- NOTE | 2020-04-23 07:15 | NUR ---
PT TRANSFERRED TO MED/SURG ROOM 260 IN STABLE CONDITION VIA HOSPITAL BED IN STABLE CONDITION ACCOMPANIED BY CARLOS ENRIQUE BRANNON AND CARLOS ENRIQUE SOLIS.
--- NOTE | 2020-04-23 07:18 | NUR ---
REPORT CALLED TO ANKUR PARIKH AT [facility], SBAR GIVEN. PT WAS SAFELY TRANSFERRED TO [facility] SUR[facility] ROOM 260 ACCOMPANIED BY 2 RN'S, RT STAFF. O2 TRACH MASK AT 28% HUMIDIFIED. PT IN NO ACUTE DISTRESS. ALL OF PT BELONGINGS TAKEN. CHART AND MEDICATIONS TAKEN TO NURSE PASCUAL AT NURSE'S STATION.
--- NOTE | 2020-04-23 08:10 | NUR ---
PT RESTING IN SEMI FOWLERS POSITION WITH HOB ELEVATED AT 30 DEGREES;VS OBTAINED AND ASSESSMENT COMPLETED;PT REMAINS NON-VERBAL AT THIS TIME;NO S/S OF DISTRESS NOTED;RESPIRATIONS EVEN AND UNLABORED ON AEROSOL MASK TO TRACH WITH 28% HUMIDIFIED, NON-PRODUCTIVE COUGH NOTED;ABDOMEN DISTENDED/SOFT ON PALPATION AND ACTIVE IN ALL 4 QUADRANTS,LARGE BOWEL MOVEMENT NOTED;BED BATH PROVIDED WITH CANELA CATHETER CARE;CANELA CATHETER DRAINING TO GRAVITY WITH EASE;PEG TUBE NOTED TO RUQ, SITE APPEARS CLEAN AND HEALTHY;FEEDING PROVIDED AT THIS TIME PER ORDER, O RESIDUAL NOTED PRIOR TO FEEDING;WEAK PEDAL PULSES;EXCORIATED AREA NOTED TO BUTTOCK/COCCXY, WOUND CARE PROVIDED AT THIS TIME PER ORDER;#22G TO RIGHT HAND FLUSHED AND PATENT,SITE APPEARS HEALTHY AND ABX STARTED;ACCUCHECK 144, NO COVERAGE NEEDED;ALL SAFETY PRECAUTIONS REMAIN IN PLACE WITH BED IN THE LOWEST POSITION AND CALL LIGHT IN REACH;WILL CONTINUE TO MONITOR
--- NOTE | 2020-04-23 11:30 | NUR ---
PT RESTING IN SEMI FOWLERS POSITION;RESPIRATIONS EVEN AND UNLABORED;NO S/S OF DISTRESS NOTED;CANELA CATHETER PATENT DRAINING TO GRAVITY WITH EASE;BP CURRENTLY 187/83 HR 79, PT TO BE MEDICATED WITH PRN APRESOLINE 10MG IVP PER ORDER BY CARLOS ENRIQUE THOMAS;ALL SAFETY PRECAUTIONS REMAIN IN PLACE WITH BED IN THE LOWEST POSITION AND CALL LIGHT IN REACH;WILL CONTINUE TO MONITOR
--- NOTE | 2020-04-23 12:10 | NUR ---
BP RE-CHECK 165/76
--- NOTE | 2020-04-23 13:46 | NUR ---
CPT GIVEN VIA PERCUSSOR BILAT. HR 89, RR 20, SP02 ON 28% ATC 90%. B/S ARE DIM AND CLEAR BILAT. NO SOB NOTED. NO COUGH.
--- NOTE | 2020-04-23 13:55 | NUR ---
TUBE FEEDING PROVIDED AT THIS TIME,0 RESIDUAL NOTED PRIOR TO FEEDING;PT HOB TO REMAIN AT 30 DEGRESS;PT TOLERATING FEEDS WELL;WILL CONTINUE TO MONITOR
--- NOTE | 2020-04-23 15:30 | NUR ---
PT APPEARS TO BE SLEEPING IN SEMI FOWLERS POSITION;RESPIRATIONS EVEN AND UNLABORED;NO S/S OF DISTRESS NOTED;CANELA CATHETER REMAINS IN PLACEALL SAFETY PRECAUTIONS IN PLACE WITH BED IN THE LOWEST POSITION AND CALL LIGHT IN REACH;WILL CONTINUE TO MONITOR
--- NOTE | 2020-04-23 16:45 | NUR ---
VICENTE, ANRP NOTIFIED OF ELEVATED BP 204/89;NEW ORDERS TO BE RECEIVED;PT APPEARS TO BE SLEEPING IN SEMI FOWLERS POSITION;NO S/S OF DISTRESS NOTED;WILL CONTINUE TO MONITOR
--- NOTE | 2020-04-23 17:47 | NUR ---
CLONDINE PATCH APPLIED TO RIGH UPPER CHEST FOR ELEVATED BP,WILL MONITOR FOR EFFECTIVENESS
--- NOTE | 2020-04-23 20:20 | NUR ---
PT RESTING IN BED, APPEARS COMFORTABLE AND IN NO DISTRESS. RESPIRATIONS REGULAR AND UNLABORED. PHYSICAL ASSESMENT COMPLETE. PT REPOSITIONED FOR COMFORT. NO SUCTION TO TRACH NEEDED AT THIS TIME. AIRWAY IS CLEAR. TRACHEAL OXYGEN MASK IN PLACE, DELIVERING HUMIDIFIED 02 @ 28%. MEDS CRUSHED AND GIVEN VIA PEG W/O DIFFICULTY. PEG TUBE PATENT. NO RESIDUAL. FLUSHED W/ 100ML H20. MUCINEX HELD PENDING CLARIFICATION MEDICATION IS EXTENDED RELEASE BILAYER MED AND NOT INDICATED FOR CRUSHING. PT POSITIONED FOR COMFORT. BED LOCKED IN LOW POSITION W/ BEDRAILS UP X2.
--- NOTE | 2020-04-23 20:40 | NUR ---
AFTER CLARYFYING WITH PHARMACIST ORDER RECEIVED TO CHANGE MUCINEX TO GUIFANESEN SUSPENSION. SEE ORDER AND E-MAR.
--- NOTE | 2020-04-23 21:50 | NUR ---
GUIFANESEN SUSPENSION GIVEN VIA PEG, SEE E-MAR. PEG FLUSHED W/ 100ML H20.
--- NOTE | 2020-04-24 00:05 | NUR ---
PT APPEARS TO BE SLEEPING COMFORTABLY, NO APPARENT DISTRESS. RESPIRATIONS REGULAR AND UNLABORED. BED REMAINS LOCKED IN LOW POSITION WITH BEDRAILS UP X2.
--- NOTE | 2020-04-24 00:15 | NUR ---
PT REPOSITIONED FOR COMFORT. BED REMAINS LOCKED IN LOW POSITION W/ BEDRAILS UP X2. HOB ELEVATED 30-45 DEGREES AT ALL TIMES.
[2020-04-24 04:35] VITALS: BP 162/72
--- NOTE | 2020-04-24 04:54 | NUR ---
BED BATH AND LINEN CHANGE DONE BY Wendy CARLA AND Anthony CARLA @ THIS TIME.
--- NOTE | 2020-04-24 05:02 | NUR ---
10ML SEROUSANGUINOUS DRAINAGE EMPTIED FROM MIRTA DRAIN. BULB SUCTION RE-ENGAGED. ON STANDBY WHILE PT UP TO BSC INDEPENDENTLY AND BACK TO BED. ASSISTED PT TO WIPE PER HER REQUEST. PT PASSED LARGE GREEN LIQUID/MUCOUS STOOL. CONTINUES TO REPORT PRURITIS, PTS BACK WIPED WITH COOL MOIST WASH CLOTH AND LOTION APPLIED/ BACK RUB PROVIDED FOR COMFORT. PRN BENADRYL ADMINISTERED FOR PRURITUS AND PRN DILAUDID ADMINISTERED FOR C/O OF ABD PAIN, 06/04. SEE E-MAR.
--- NOTE | 2020-04-24 05:32 | NUR ---
TECH IN ROOM FOR PCXR.
--- NOTE | 2020-04-24 05:36 | NUR ---
PT APPEARS TO BE RESTING COMFORTABLY IN BED, RESPIRATIONS REGUALR AND UNLABORED. REPOSITIONED FOR COMFORT. BED REMAINS LOCKED IN LOW POSITION WITH BEDRAILS UP X2.
--- NOTE | 2020-04-24 05:59 | NUR ---
PT INCONTINENT OF SMALL LIQUID STOOL, PT CLEANED, UNDERPAD REPLACED, "BUTT PASTE" RE-APPLIED. PT TURNED/REPOSITIONED FOR COMFORT.
[2020-04-24 08:20] VITALS: BP 171/52
--- NOTE | 2020-04-24 08:20 | NUR ---
ASSESSMENT IS COMPLETED: IV SITE IS FREE FROM REDNESS OR EDEMA. HR IS REG,PULSES ARE STRONG X4, ABD IS SOFT WITH ACTIVE BS, BREATH SOUNDS ARE WHEEZES AND RHONCI,BILATERALLY. GENERAL EDEMA NOTED. PEG TUBE DRESSING IS CDI. ON AIR MATTRESS. CONTINUE TO OBSERVE AND MONITOR.
[2020-04-24 08:24] LABS: HEMOGLOBIN 9.3 g/dl (12.0-16.0); IMMATURE GRANULOCYTES 0.2 % (0.0-5.0); MEAN CELL VOLUME 88.8 fL CALC (80.0-100.0); MEAN CORPUSCULAR HGB 27.5 pG CALC (26.0-32.0); NEUT# 2.94 thou/uL (2.00-7.15); RED BLOOD COUNT 3.38 mill/uL (4.20-5.60); RED CELL DISTRI WIDTH 14.8 % (11.5-15.5)
[2020-04-24 08:32] LABS: ALBUMIN 3.1 g/dL (3.2-5.0); ALKALINE PHOSPHATASE 56 u/l (38-126); ANION GAP 5 (6-22 (CALC)); BILIRUBIN, TOTAL 0.3 mg/dL (0.0-1.4); BUN 16 mg/dL (8-23); BUN/CREATININE RATIO 49 (12-20 (CALC)); CARBON DIOXIDE 32 mmol/l (22-30); CHLORIDE 100 mmol/l (95-108); CREATININE 0.3 mg/dL (0.5-1.0); GFR > 60 ML/MIN (>=60 (CALC)); GFR FOR AFR.AMER. > 60 ML/MIN (>=60 (CALC)); SGOT/AST 23 u/l (9-36); SODIUM 134 mmol/l (137-146); TOTAL PROTEIN 5.8 g/dL (6.3-8.2)
--- NOTE | 2020-04-24 11:18 | NUR ---
CALLED FAMILY RE: MEDICATION WILL BRING MORE UP WHEN THEY RETURN TO TOWN.
--- NOTE | 2020-04-24 12:00 | NUR ---
PT HAS BEEN RELAXING IN BED NO DISTRESS NOTED. IV SITE IS FREE FROM REDNESS OR EDEMA. TOLERATED LUNCH WELL WITH HER GLUCERNA.
--- NOTE | 2020-04-24 12:10 | NUR ---
CPT PERFORMED FOR 10 MINUTES VIA PERCUSSION MACHINE.
[2020-04-24 15:00] VITALS: BP 169/48
--- NOTE | 2020-04-24 16:00 | NUR ---
PT RELAXING AND OPENS HER EYES WHEN BEING MOVED AND SPOKEN TO. CONTINUE TO OSBERVE AND MONIOTR.
--- NOTE | 2020-04-24 16:22 | NUR ---
PT HAD MULTIPLE LOOSE LIGHT BROWN STOOL. TURNED SEVERAL TIMES TO GET CLEANED UP., CONTINUE TO OSBERVE AND MONITOR.
[2020-04-24 18:55] VITALS: BP 170/81
--- NOTE | 2020-04-24 20:45 | NUR ---
PTs [facility] ARRIVES TO VISIT PT AND PROVIDE HOME DOSE OF DIVALPROEX.
--- NOTE | 2020-04-24 21:25 | NUR ---
PHYSICAL ASSESMENT COMPLETE. PT IN NO APPARENT DISTRESS. APPEARS TO BE RESTING COMFORTABLY. RESPIRATIONS REGULAR AND UNLABORED. NO SECRETIONS NOTED. SCHEDULED MEDS GIVEN. SEE EMAR. ORAL MEDS CRUSHED AND GIVEN VIA PEG. PEG W/ 10ML RESIDUAL. TUBE PATENT. MEDS ADMINISTERED WITHOUT DIFFICULTY. 200ML TOTAL OF H20 INSTILLED VIA PEG. PT REPOSITIONED FOR COMFORT. AIR MATTRESS ON. BED LOCKED IN LOW POSITION W/ BEDRAILS UP X2.
--- NOTE | 2020-04-25 00:31 | NUR ---
PT APPEARS TO BE SLEEPING COMFORTABLY. RESPIRATIONS REGULAR AND UNLABORED.
[2020-04-25 03:30] VITALS: BP 178/80
--- NOTE | 2020-04-25 05:12 | NUR ---
PT INCONTINENT OF LARGE AMOUNT LIQUID STOOL. PT GIVEN PARTIAL BED BATH AND COMPLETE LINEN CHANGE W/ ASSIST OF ALEXI RAMIREZ. PT POSITIONED FOR COMFORT. APPEARS COMFORTABLE AND IN NO DISTRESS. HUMIDITY CONTAINER FOR 02 REFILLED W/ STERILE WATER. MIRELA RT MADE AWARE. BED REMAINS LOCKED IN LOW POSITION W/ BEDRAILS UP X2.
[2020-04-25 08:20] VITALS: BP 137/65
--- NOTE | 2020-04-25 08:20 | NUR ---
ASSESSMENT IS COMPLETED: IV SITE IS FREE FROM REDNESS OR EDEMA. HR IS REG,PULSES ARE STRONG X4, ABD IS SOFT WITH ACTIVE BS. BREATH SOUNDS ARE CLEAR. CANELA DRAINING YELLOW URINE. PEG TUBE AREA IS CDI. O2 ON HER TRACH IS CDI. AIR MATTRESS IN PLACE.
[2020-04-25] MEDS ORDERED: CLONIDINE0.3 MG/21 TD (09:12)
--- NOTE | 2020-04-25 12:00 | NUR ---
PT IS RELAXING IN BED WITH NO DISTRESS NOTED. IV SITE IS FREE FROM REDNESS OR EDEMA. CANELA DRAINING. PEG TUBE IN PLACE.
[2020-04-25 15:00] VITALS: BP 192/85
--- NOTE | 2020-04-25 16:00 | NUR ---
PT HAS BEEN RELAXING IN BED
--- NOTE | 2020-04-25 16:24 | NUR ---
[facility] HERE TO BRIM CUTTER PT. IV SITE DISCONTINEUD CALLED AND SPOKE WITH THE GRANDDAUGHTER RE: PT HAD A FEW BM., AND WAS CLEANED UP PRIOR TO MOVING TO THE STRETCHER . CANELA INTACT. PEG TUBE INTACT. SENT GLUCERNA HOME WITH PT. CONTINUE TO OBSERVE AND MONITOR.
--- NOTE | 2020-04-25 16:57 | NUR ---
Discharge instructions given. Patient verbalizes understanding of same. Discharged in stable condition via Medical Transport to Home with *Other. All belongings sent with pt.TO FAMILY WITH ALL BELONGINGS., AND RAULITO
--- NOTE | 2020-04-26 08:30 | NUR ---
CALLED [facility] AIR MATTRESS FOR KENNEL ATTENDANT SPOKE TO SANGITA WAS GIVEN CONFIRMATION NUMBER [id number].
== END 2020-04-25 16:23 | disposition home health service (06) | DRG 177 ==
LOC: ED 10:31 → ED-I 13:10 → ED 13:22 → ED-I 13:23 → ICU 13:23 → MS2 04-23 07:15
PROVIDERS: Nurse Practitioner; ADMIT Internal Medicine; ATTEND Internal Medicine
PROC: 0T2BX0Z Change Drainage Device in Bladder, External Approach (ICD-10-PCS; principal; 2020-04-22)
DX: J15.1 Pneumonia due to Pseudomonas (principal); J96.21 Acute and chronic respiratory failure with hypoxia; N39.0 Urinary tract infection, site not specified; Z16.23 Resistance to quinolones and fluoroquinolones; E11.9 Type 2 diabetes mellitus without complications; F03.90 Unspecified dementia, unspecified severity, without behavioral disturbance, psychotic disturbance, mood disturbance, and anxiety; I69.965 Other paralytic syndrome following unspecified cerebrovascular disease, bilateral; G83.89 Other specified paralytic syndromes; E11.22 Type 2 diabetes mellitus with diabetic chronic kidney disease; N18.9 Chronic kidney disease, unspecified; I12.9 Hypertensive chronic kidney disease with stage 1 through stage 4 chronic kidney disease, or unspecified chronic kidney disease; R19.7 Diarrhea, unspecified; L89.152 Pressure ulcer of sacral region, stage 2; I34.1 Nonrheumatic mitral (valve) prolapse; I25.10 Atherosclerotic heart disease of native coronary artery without angina pectoris; B96.5 Pseudomonas (aeruginosa) (mallei) (pseudomallei) as the cause of diseases classified elsewhere; Z93.0 Tracheostomy status; Z87.01 Personal history of pneumonia (recurrent); Z88.0 Allergy status to penicillin; Z96.0 Presence of urogenital implants; Z93.1 Gastrostomy status; Z99.81 Dependence on supplemental oxygen; Z74.01 Bed confinement status; Z20.828 Contact with and (suspected) exposure to other viral communicable diseases
CPT/HCPCS: J0692; J1650; Q3014

== ENCOUNTER 2020-05-11 01:42 | Inpatient (IN) | payer MEDICARE, MEDICAID ==
[~2020-05-11] VITALS: Ht 172.7 cm; Wt 84.0 kg
[~2020-05-11 01:42] MED LIST changes: +ACIDOPHILU4 PO; +CHEST CONGESTI400 MG PO; +CLONIDINE0.3 MG/21 TD; +DRIZALMA SPRINK30 MG PO; +EFFER-K25 MEQ PO; +GABAPENTIN100 MG PO; +MELATONIN PO
--- NOTE | 2020-05-11 01:42 | NUR ---
PATIENT TO ROOM 12 VIA EMS STRETCHER. TRIAGE COMPLETED FROM RECORDS FAMILY SENT AND OLD CHART.
[2020-05-11] MEDS ORDERED: ALL DAY ALLG10 MG PO (02:01)
[2020-05-11] MEDS ORDERED: KEPPRA XR500 MG PO (02:03)
[2020-05-11] MEDS ORDERED: LODINE XL400 MG PO (02:14)
[2020-05-11] MEDS ORDERED: LACTULOSE PO (02:15)
[2020-05-11] MEDS ORDERED: SENNA8.8 MG/5 M (02:16)
[2020-05-11] MEDS ORDERED: LASIX 20 MG TAB20 MG PO (02:17)
--- NOTE | 2020-05-11 02:19 | NUR ---
PATIENT PRESENTED TO ED WITH TRACH, CANELA AND FEEDING TUBE IN PLACE, PATIENT ALERT BUT NOT ORIENTED, APHASIAC, NO S/S OF DISTRESS NOTED, NO S/S OF PAIN, RESPIRATIONS EVEN AND UNLABORED ON ROOM AIR, LAB AND RADIOLOGY AT BEDSIDE. PITTING EDEMA NOTED TO BIATERAL UPPER AND LOWER EXTREMITIES.
[2020-05-11 02:23] LABS: HEMOGLOBIN 12.4 g/dl (12.0-16.0); IMMATURE GRANULOCYTES 0.2 % (0.0-5.0); MEAN CELL VOLUME 84.8 fL CALC (80.0-100.0); MEAN CORPUSCULAR HGB CONC 31.8 g/dL CAL (32.0-36.0); NEUT# 6.25 thou/uL (2.00-7.15); RED BLOOD COUNT 4.6 mill/uL (4.20-5.60); RED CELL DISTRI WIDTH 13.6 % (11.5-15.5)
[2020-05-11 02:24] LABS: URINE BILIRUBIN - DIPSTICK NEGATIVE (NEGATIVE); URINE BLOOD DIPSTICK NEGATIVE (NEGATIVE); URINE COLOR YELLOW; URINE GLUCOSE - DIPSTICK NEGATIVE (NEGATIVE); URINE KETONE 15 mg/dL (NEGATIVE); URINE LEUK ESTERASE TRACE (NEGATIVE); URINE NITRITE - DIPSTICK NEGATIVE (Negative); URINE PH 6.5 (4.5-8.0); URINE PROTEIN - DIPSTICK 100 mg/dL (NEG-TRACE); URINE SPECIFIC GRAVITY 1.025
[2020-05-11 02:41] LABS: URINE BACTERIA FEW hpf; URINE MUCUS FEW hpf (NONE-FEW); URINE RBC 0-2 RBC/hpf (0-5); URINE SQUAMOUS EPITHELIAL CELL FEW EPI/hpf (0-FEW); URINE WBC 20-50 WBC/hpf (0-5)
--- NOTE | 2020-05-11 02:45 | NUR ---
PATIENT PLACED ON HUMIDIFIED MEDICAL AIR PER REQUEST OF CAREGIVER.
[2020-05-11 03:12] LABS: ALBUMIN 3.2 g/dL (3.2-5.0); ALKALINE PHOSPHATASE 64 u/l (38-126); ANION GAP 10 (6-22 (CALC)); BILIRUBIN, TOTAL 0.6 mg/dL (0.0-1.4); BUN 7 mg/dL (8-23); BUN/CREATININE RATIO 24 (12-20 (CALC)); CARBON DIOXIDE 32 mmol/l (22-30); CHLORIDE 91 mmol/l (95-108); CREATININE 0.3 mg/dL (0.5-1.0); GFR > 60 ML/MIN (>=60 (CALC)); GFR FOR AFR.AMER. > 60 ML/MIN (>=60 (CALC)); MAGNESIUM 1.8 mg/dL (1.6-2.3); SGOT/AST 25 u/l (9-36); SODIUM 131 mmol/l (137-146); TOTAL PROTEIN 5.9 g/dL (6.3-8.2)
[2020-05-11 03:36] LABS: TSH, 3RD GENERATION 4.44 uIU/mL (0.47 - 4.68)
--- NOTE | 2020-05-11 03:42 | NUR ---
SITA CONTRAST STARTED PER PEG. PATIENT RESTING QUIETLY WITH EYES CLOSED , NO C/O PAIN OR DISCOMFORT, NO S/S OF DISTRESS NOTED, RESPIRATIONS EVEN AND UNLABORED, AWAITING RADIOLOGY.
--- NOTE | 2020-05-11 04:18 | NUR ---
SECOND DOSE OF PO CONTRACT GIVEN PER PEG.
--- NOTE | 2020-05-11 04:53 | NUR ---
3RD DOSE OF PO CONTRAST GIVE. 450 CC OF CLEAR YELLOW URINE EMPTIED FROM CANELA CATH. PATIENT RESTING QUIETLY, NO S/S OF DISTRESS NOTED, RESPIRATIONS EVEN AND UNLABORED, AWAITING RADIOLOGY.
--- NOTE | 2020-05-11 07:08 | NUR ---
REPORT GIVEN TO BRAULIO, CARLOS ENRIQUE PATIENT TO INPATIENT ROOM IN 15-20 MINUTES TO GIVE TIME FOR UNIT REPORT. ER HAND OFF REPORT GIVEN TO ERINN.
--- NOTE | 2020-05-11 07:30 | NUR ---
Admission Note Report Given to: ICU Transported by: Wheelchair X Stretcher Transported with: X Nurse Transporter X Patent IV O2 X Care Aide Location: ICU MS2
[2020-05-11 08:30] VITALS: BP 146/64
--- NOTE | 2020-05-11 08:30 | NUR ---
PATIENT RECEIVED FROM ED FOR HYPOKALEMIA AND CONSTIPATION. A&O X 0, NON VERBAL HX OF CVA. CANELA, PEG TUBE AND 22G TO RIGHT HAND IN PLACE WITHOUT COMPLICATIONS. ABDOMEN SOFT & FIRM, NO DISTENTION NOTED. SINUS RHYTHM, VITAL SIGNS STABLE. PATIENT HAS TRACH ON HUMIDIFIED AIR AT 35% NO COMPLICATIONS NO ACUTE DISTRESS. SCD APPLIED. BED IN LOW POSITION. NO FAMILY AT BEDSIDE.
--- NOTE | 2020-05-11 10:30 | NUR ---
TAP WATER ENEMA ADMINISTERED ORDERED. BOWEL MOVEMENT SUCCESSFULL DURING ADMINISTRATION. LARGE BROWN, LIQUID AND SEMI-SOFT. TOTAL BED LINEN CHANGE AND PATIENT REPOSITIONED AT THIS TIME. VITAL SIGNS STABLE. NO DISTRESS NOTED.
--- NOTE | 2020-05-11 12:35 | NUR ---
PATIENT RESTING, SEMI-FOWLERS POSITION. IV IN PLACE AND INFUSING WITHOUT COMPLICATIONS. TUBE FED WITH 2 CANS OF JEVITY AT THIS TIME WITHOUT COMPLICATIONS. NO SIGNS OF DISTRESS. VITAL SIGNS STABLE. BED IN LOW POSITION.
[2020-05-11 12:38] LABS: ALBUMIN 3.4 g/dL (3.2-5.0); ALKALINE PHOSPHATASE 69 u/l (38-126); BILIRUBIN, TOTAL 0.5 mg/dL (0.0-1.4); BUN 6 mg/dL (8-23); BUN/CREATININE RATIO 23 (12-20 (CALC)); CARBON DIOXIDE 27 mmol/l (22-30); CHLORIDE 94 mmol/l (95-108); CREATININE 0.3 mg/dL (0.5-1.0); GFR > 60 ML/MIN (>=60 (CALC)); GFR FOR AFR.AMER. > 60 ML/MIN (>=60 (CALC)); SGOT/AST 24 u/l (9-36); SODIUM 130 mmol/l (137-146); TOTAL PROTEIN 6.4 g/dL (6.3-8.2)
[2020-05-11 12:39] LABS: ANION GAP 12 (6-22 (CALC)); POTASSIUM 2.8 mmol/l (3.5-5.1)
--- NOTE | 2020-05-11 14:32 | NUR ---
PATIENT APPEARS TO BE SLEEPING AND IN NO DISTRESS. IV CONTINUES TO INFUSE WITHOUT COMPLICATIONS. CANELA IN PLACE AND DRAINING CLEAR YELLOW URINE. RESPONDS TO PAINFUL STIMULY, TOUCH OR MOVEMENT. BED IN LOW POSITION.
--- NOTE | 2020-05-11 16:26 | NUR ---
PATIENT HAD ANOTHER LARGE, LIQUID, BROWN BM. LINENS CHANGED AND PATIENT REPOSITIONED AT THIS TIME. CANELA CATHETER EMPTIED 300CC OF CLEAR YELLOW URINE. NO DISTRESS NOTED, VITALS REMAIN STABLE.
[2020-05-11 16:33] VITALS: BP 147/67
--- NOTE | 2020-05-11 19:45 | NUR ---
ASSESSMENT COMPLETED. TRACHE IN PLACE AND HUMIDIFED. IV SITE PATENT WITH ORDERED IVF INFUSING WELL. PEG TUBE INTACT. CANELA CATHETER IN PLACE AND DRAINAING AT GRAVITY LEVEL. PT. CLEANED OF A LARGE LIQUID BM AND [place] CARE GIVEN ALONG WITH GOWN AND PAD CHANGE. PULLED UP AND REPOSITIONED IN BED. BILATERAL HEELS ELEVATED. PT IS NON-VERBAL AND UNABLE TO MOVE ANY EXTREMETIES ON HER OWN. CALL LIGHT IS IN REACH. WILL CONTINUE TO MONITOR.
[2020-05-11 20:00] VITALS: BP 150/63
[2020-05-11 22:00] VITALS: BP 167/64
--- NOTE | 2020-05-11 23:00 | NUR ---
NOTIFIED DR. VELASQUEZ OF ELEVATED SBP >160; NEW ORDERS RECEIVED AND TO BE CARRIED OUT.
[2020-05-11 23:29] VITALS: BP 131/49
--- NOTE | 2020-05-11 23:30 | NUR ---
RECHECKED B/P AND WNL AT THIS TIME; NO NEED FOR PRN HYDRALAZINE. PT. REPOSITIONED ONTO LEFT SIDE.
[2020-05-12] VITALS (9 sets, daily range): BP systolic 128–184; BP diastolic 47–79
--- NOTE | 2020-05-12 01:11 | NUR ---
B/P 184/68 AND MEDICATED WITH ORDERED PRN APRESOLINE; WILL REASSESS.
--- NOTE | 2020-05-12 03:00 | NUR ---
RESTING IN BED WITH EYES CLOSED; RESP. EVEN AND UNLABORED. TRACHE IN PLACE.
--- NOTE | 2020-05-12 04:47 | NUR ---
PT. CHECKED FOR INCONTINENCE OF BM, SMALL BM NOTED AND CLEANED. REPOSITIONED.
--- NOTE | 2020-05-12 05:25 | NUR ---
PHLEBOTOMY UNSUCCESSFUL AT AM LAB DRAW; NEXT SHIFT TO ATTEMPT.
--- NOTE | 2020-05-12 06:45 | NUR ---
RECIEVED REPORT FROM CARL[facility] ENRIQUE [facility]A. ASSUMED PT CARE.
--- NOTE | 2020-05-12 07:33 | NUR ---
LAB AT BEDSIDE FOR BLOOD DRAW.
[2020-05-12 07:51] LABS: HEMATOCRIT 33.3 % (37.0-47.0); HEMOGLOBIN 10.5 g/dl (12.0-16.0); IMMATURE GRANULOCYTES 0.2 % (0.0-5.0); MEAN CELL VOLUME 86.5 fL CALC (80.0-100.0); MEAN CORPUSCULAR HGB 27.3 pG CALC (26.0-32.0); MEAN CORPUSCULAR HGB CONC 31.5 g/dL CAL (32.0-36.0); NEUT# 5.99 thou/uL (2.00-7.15); RED BLOOD COUNT 3.85 mill/uL (4.20-5.60)
--- NOTE | 2020-05-12 08:00 | NUR ---
PT REPOSITIONED, INC OF LIQUID BM, CANELA CARE, PERICARE BATH AND LINEN CHANGE COMPLETED. PT TOLERATED WELL.
[2020-05-12 08:10] LABS: ANION GAP 7 (6-22 (CALC)); BUN 9 mg/dL (8-23); BUN/CREATININE RATIO 30 (12-20 (CALC)); CARBON DIOXIDE 30 mmol/l (22-30); CHLORIDE 98 mmol/l (95-108); CREATININE 0.3 mg/dL (0.5-1.0); GFR > 60 ML/MIN (>=60 (CALC)); GFR FOR AFR.AMER. > 60 ML/MIN (>=60 (CALC)); MAGNESIUM 2.1 mg/dL (1.6-2.3); POTASSIUM 2.9 mmol/l (3.5-5.1); SODIUM 132 mmol/l (137-146)
--- NOTE | 2020-05-12 09:51 | NUR ---
RT AT BEDSIDE FOR SUCTIONING TRACH. GREEN/YELLOW THICK DRAINING NOTED.
--- NOTE | 2020-05-12 10:15 | NUR ---
PT REPOSITIONED, INC OF LIQUID BM, CANELA CARE AND PERICARE COMPLETED. PT TOLERATED WELL. BARRIER CREAM APPLIED. CALL LIGHT IN REACH. WILL MONITOR.
--- NOTE | 2020-05-12 11:30 | NUR ---
FEEDING BY PEGTUBE AFTER PLACEMENT VERIFIED VIA AUSCULTATION, 0 RESIDUAL. PT CONTINUES WITH LIQUID STOOL. PT REPOSITIONED, GOOD PERICARE AND CANELA CARE PROVIDED. PT TOLERATED WELL. CALL LIGHT IN REACH. WILL MONITOR.
--- NOTE | 2020-05-12 12:30 | NUR ---
NEW ORDERS RECIEVED TO DOWNGRADE PT TO MS WITH TELEMETRY. CALLED TO ACQUIRE A BED, 263 ASSIGNED.
--- NOTE | 2020-05-12 14:00 | NUR ---
REPORT CALLED TO JL KUMAR.
--- NOTE | 2020-05-12 14:20 | NUR ---
PT INC OF BM, COMPLETE BED BATH, CANELA CARE AND LINEN CHANGE DONE. PT TOLERATED WELL.
--- NOTE | 2020-05-12 14:25 | NUR ---
PT ARRRIVED TO [facility] ROOM 263 IN STABELE CONDITION VIA STRETCHER ACCOMPAINED BY CARLOS ENRIQUE ROSALES. RESPIRATIONS ARE EVEN AND UNLABORED WITH NO SIGNS OF DISTRESS. PT PRESENTED WITH TRACHEA AND PEG TUBE. CANELA CATHATER IN PLACE WITH TUBING UNKINKED AND FLOWING WITH GRAVITY. PT PRESENTS WITH ECZEMA, NO BREAKDOWN PRESENT AT THIS TIME. ALL SAFTEY PRECAUIOTN SRE IN PLACE WITH CALL LIGHT IN REACH.WILL CONTINUE TO MONITOR
--- NOTE | 2020-05-12 15:57 | NUR ---
PT RESTING IN SEMI FOWLERS POSITION. RESPIRATIONS ARE EVEN AND UNLABORED. TRACHE AND PEG TUBE IN PLACE. CANELA IN PLACE FLOWING WITH GRAVITY. NO SIGNS OF DISTRESS. ALL SAFETY PRECAUTIONS ARE IN PLACE WITH CALL LIGTH IN REACH. WILL COTNINUE TO MONITOR
--- NOTE | 2020-05-12 17:59 | NUR ---
TUB FEEDING ADMINISTERED AT THIS TIME.
--- NOTE | 2020-05-12 18:04 | NUR ---
RESPIRATORY CALLED TO ASSIST WITH SUCTIONING
[2020-05-12 18:14] LABS: C. DIFFICILE TOXIN A&B NEGATIVE (NEGATIVE)
--- NOTE | 2020-05-12 18:40 | NUR ---
RESPIRATORY AT BEDSIDE.
--- NOTE | 2020-05-12 19:15 | NUR ---
REPORT RECEIVED FROM DAY NURSE, PT RESTING IN BED. NO S/S OF DISTRESS AT THIS ITME. WILL CONTINUE TO MONITOR.
--- NOTE | 2020-05-12 21:30 | NUR ---
PT RESTING IN BED WITH EYES CLOSED, ASSESSMENT COMPLETED. TRACHE IN PLACE AND HUMIDIFIED. PEG TUBE IN PLACE, NO RESIDUAL NOTED. CANELA DRAINING TO GRAVITY. TELE IN PLACE. CALL RAMOS WITHIN REACH. WILL CONTINUE TO MONITOR.
[2020-05-13] VITALS (8 sets, daily range): BP systolic 131–173; BP diastolic 56–76
--- NOTE | 2020-05-13 00:01 | NUR ---
PT RESTING IN BED. PT REPOSITIONED. NO S/S OF DISTRESS AT THIS TIME.
--- NOTE | 2020-05-13 04:37 | NUR ---
PT BP ELEVATED, TO BE MEDICARED PER EMAR ORDERS
--- NOTE | 2020-05-13 07:39 | NUR ---
REPORT RECEIVED FROM CARLOS ENRIQUE WALLACE. PT RESTING IN BED ON LEFT SIDE POSITIONED WITH PILLOWS. TOTAL CARE; NON VERBAL; PT OPENS EYES TO VERBAL STIMULI. SKIN IS FLUSHED; HOT AND MOST; AFEBRILE; BLANKET REMOVED; COVERED NOW WITH ONLY A SHEET. COURSE LUNG SOUNDS; GENERALIZED EDEMA; 4+ PITTING PITTING EDEMA. PEG TUBE. TRACHEOSTOMY WITH 28% HUMIDIFIED OXYGEN APPLIED WITH AEROSOL MASK. CHRONIC CANELA DRAINING NITHYA URINE TO GRAVITY; LEG STRAP INTACT TO RIGHT THIGH; SCDS IN PLACE TO BLE. IV SITE APPEARS HEALTHY AND FLUSHES. TELE ON. SAFETY MEASURES IN PLACE. NEEDS ARE ANTICIPATED BY STAFF.
[2020-05-13 08:30] LABS: ALBUMIN 2.8 g/dL (3.2-5.0); ALKALINE PHOSPHATASE 59 u/l (38-126); ANION GAP 6 (6-22 (CALC)); BILIRUBIN, TOTAL 0.3 mg/dL (0.0-1.4); BUN 8 mg/dL (8-23); BUN/CREATININE RATIO 27 (12-20 (CALC)); CARBON DIOXIDE 30 mmol/l (22-30); CHLORIDE 102 mmol/l (95-108); CREATININE 0.3 mg/dL (0.5-1.0); GFR > 60 ML/MIN (>=60 (CALC)); GFR FOR AFR.AMER. > 60 ML/MIN (>=60 (CALC)); POTASSIUM 3.3 mmol/l (3.5-5.1); SGOT/AST 19 u/l (9-36); SODIUM 134 mmol/l (137-146); TOTAL PROTEIN 5.4 g/dL (6.3-8.2)
--- NOTE | 2020-05-13 09:10 | NUR ---
AM MEDS AND GLUCERNA 1.5 WAQAR ADMINISTERED THROUGH PEG TUBE; PLACEMENT CONFIRMED WITH AIR ADMINISTRATION; NO RESIDUAL. PEG TUBE SITE CLEANSED WITH NORMAL SALINE AND NEW DRAIN SPONGE LOTUS APPLIED. PT REPOSITIONED INTO HIGH FOWLERS PRIOR TO FEED. MAKES EYE CONTACT, BUT DOES NOT RESPOND TO COMMANDS.
--- NOTE | 2020-05-13 13:00 | NUR ---
PT TOLERATED LUNCH FEEDING WELL; NOW RESTING IN HIGH FOWLERS WITH BUTT OFFLOADED ON PILLOWS AND FEET ELEVATED WELL. NEW ORDER RECEIVED FOR AIRMATRESS.
--- NOTE | 2020-05-13 20:00 | NUR ---
PATIENT ALERT, NON-VERBAL, NOT ABLE TO MAKE NEEDS KNOWN, NEEDS ANTICIPATED AND MET PER STAFF. MAINTAINS NPO STATUS THIS SHIFT--ALL MEDS GIVEN AND TOLERATED WELL PER PEG TUBE--PEG TUBE PATENT--FLUSHES WELL--SITE WITHOUT AND VISBLE S/S OF INFECTION NOTED. MOUTH CARE PER OPHTHALMIC MEDICAL ASSISTANT PRN. CANELA PATENT AND DRAINING NITHYA COLORED URINE TO BSB WITHOUT ANY DIFFICULTY--INC OF BOWEL WELL--CARE PROVIDED PRN. CONT ON IV ABT THERAPY RELATED TO UTI WITH NO SIDE EFFECTS NOTED--AFEBRILE. PIV SITE PATENT TO RIGHT HAND--FLUSHES WELL--SITE UNREMARKABLE. NS W/40K INFUSING AT 50ML/HR WITHOUT DIFFICULTY. TRACH PATENT WITH 28% AEROSOL HUMIDIFED VIA TRACH COLLAR--TRACH CARE DONE WELL--TOLERATED WELL. SUCTIONED TIMES 1 THUS FAR IN SHIFT FOR A MODERATE AMOUNT OF THICK YELLOW SPUTUM. CONTINUES TO HAVE 4+ PEDAL EDEMA--REMAINS ON PO LASIX--TOTAL CARE WITH ALL ADLS--NO APPARENT DISTRESS NOTED AT THIS TIME--WILL CONT TO MONITOR FOR ANY CHANGES.
[2020-05-14] VITALS (8 sets, daily range): BP systolic 142–188; BP diastolic 71–88
--- NOTE | 2020-05-14 | NUR ---
PATIENT RESTING SOUNDLY IN BED AT THIS TIME WITH EYES CLOSED--AIR MATTRESS ARRIVED EARLIER--PATIENT TRANSFERRED WITHOUT ISSUES TO AIR MATTRESS. TRACH PATENT WITH 28% AEROSOL HUMIDIFED VIA TRACH COLLAR--TOLERATING WELL--SUCTIONED AT 11PM FOR A MODERATE AMOUNT OF YELLOW/GREEN SECRETIONS--TOLERATED WELL. O2 SAT 95%. NS CONTINUES TO INFUSE AT 50ML/HR AT THIS TIME--PIV SITE TO RIGHT HAND PATENT--SITE UNREMARKABLE AT THIS TIME. NSR PER TELELETRY--HR OF 84--[facility]
--- NOTE | 2020-05-14 04:00 | NUR ---
PATIENT RESTING SOUNDLY IN BED WITH EYES CLOSED AT THIS TIME. NO APPARENT DISTRESS NOTED. TRACH PATENT WITH NO ISSUES AT THIS TIME--SUCTIONED AT 3AM FOR A SMALL AMOUNT OF YELLOW SPUTUM.
--- NOTE | 2020-05-14 07:55 | NUR ---
REPORT RECEIVED FROM NIGHT NURSE. PT RESTING IN BED ON RIGHT SIDE POSITIONED WITH PILLOWS AND ON AIR MATTRESS; EYES CLOSED AND COGNITIVE STATUS AT BASELINE. NO SIGNS OF DISTRESS. RESPIRATIONS EVEN AND UNLABORED ON AEORSOL MASK 28% HUMIDIFIED OXYGEN. BLOOD PRESSURE ELEVATED; WILL MEDICATE WITH SCHEDULED AM MEDS. SAFETY MEASURES IN PLACE. CALL LIGHT WITHIN REACH.
--- NOTE | 2020-05-14 09:20 | NUR ---
ALL AM MEDS GIVEN WITH BREAKFAST FEED OF 1 CAN OF GLUCERNA 1.5 WAQAR. ACCU CHECK 123.
--- NOTE | 2020-05-14 10:29 | NUR ---
DR. CARSON AT VIRTUAL BEDSIDE FOR ID CONSULT.
[2020-05-14 12:32] LABS: ALBUMIN 3.1 g/dL (3.2-5.0); ALKALINE PHOSPHATASE 53 u/l (38-126); ANION GAP 8 (6-22 (CALC)); BILIRUBIN, TOTAL 0.2 mg/dL (0.0-1.4); BUN 10 mg/dL (8-23); BUN/CREATININE RATIO 33 (12-20 (CALC)); CARBON DIOXIDE 28 mmol/l (22-30); CHLORIDE 100 mmol/l (95-108); CREATININE 0.3 mg/dL (0.5-1.0); GFR > 60 ML/MIN (>=60 (CALC)); GFR FOR AFR.AMER. > 60 ML/MIN (>=60 (CALC)); POTASSIUM 3.3 mmol/l (3.5-5.1); SGOT/AST 20 u/l (9-36); SODIUM 133 mmol/l (137-146)
--- NOTE | 2020-05-14 14:12 | NUR ---
IV site discontinued, cath intact. No edema , no redness, voices no discomfort.
--- NOTE | 2020-05-14 15:30 | NUR ---
NEW IV STATED AND APRESOLINE GIVEN FOR ELEVATED BLOOD PRESSURE.
--- NOTE | 2020-05-14 15:44 | NUR ---
RADIOLOGY AT BEDSIDE FOR ABD/KUB 1V XRAY. GRANDDAUGHTER AT BEDSIDE WELL DEMANDING CT AND LAB RESULTS.
--- NOTE | 2020-05-14 17:16 | NUR ---
NEW ORDER FOR CT ABD/PELVIS WITH ORAL CONTRAST. [facility] UPDATED ON TELEPHONE OF DELAY IN PT DISCHARGE. WILL CONTINUE TO MONITOR.
--- NOTE | 2020-05-14 18:56 | NUR ---
LAST ORAL CONTRAST ADMINISTERED THROUGH PED TUBE; RADIOLOGY NOTIFIED. BLOOD PRESSURE ELEVATED.
--- NOTE | 2020-05-14 19:04 | NUR ---
HS LOPRESSOR GIVEN NOW FOR SBP IN THE 170S. WILL REPORT TO [employer]IVING INSTRUCTOR.
--- NOTE | 2020-05-14 20:00 | NUR ---
PATIENT ALERT, NON-VERBAL, NOT ABLE TO MAKE NEEDS KNOWN, NEEDS ANTICIPATED AND MET PER STAFF. MAINTAINS NPO STATUS THIS SHIFT INCLUDING BOLUS FEED--TAKEN TO CT FOR CT OF THE ABDOMEN AT 8PM--TOLERATED WELL--ALL MEDS GIVEN AND TOLERATED WELL PER PEG TUBE--PEG TUBE PATENT--FLUSHES WELL--SITE WITHOUT AND VISBLE S/S OF INFECTION NOTED. MOUTH CARE PER CAT SKINNER PRN. CANELA PATENT AND DRAINING YELLOW URINE TO BSB WITHOUT ANY DIFFICULTY--INC OF BOWEL WELL--CARE PROVIDED PRN. CONT ON IV ABT THERAPY RELATED TO UTI WITH NO SIDE EFFECTS NOTED--AFEBRILE. PIV SITE PATENT TO LEFT HAND--FLUSHES WELL--SITE UNREMARKABLE. TRACH PATENT WITH 28% AEROSOL HUMIDIFED VIA TRACH COLLAR--TRACH CARE DONE WELL--TOLERATED WELL. SUCTIONED TIMES 2 THUS FAR IN SHIFT FOR A MODERATE AMOUNT OF THICK YELLOW SPUTUM. TOTAL CARE WITH ALL ADLS--B/P AT THIS TIME 160/72--NO APPARENT DISTRESS NOTED AT THIS TIME--WILL CONT TO MONITOR FOR ANY CHANGES.
[2020-05-15] VITALS (8 sets, daily range): BP systolic 101–179; BP diastolic 71–87
--- NOTE | 2020-05-15 | NUR ---
PATIENT RESTING SOUNDLY IN BED WITH EYES CLOSED AT THIS TIME. CT OF THE ABDOMEN SHOWS NO EVIDENCE OF A VOLVULUS AT THIS TIME. PIV SITE REMAINS INTACT TO LEFT HAND--SITE WITHOUT ANY S/S OF INFECTION NOTED. TRACH CARE DONE--SUCTIONED ONCE AGAIN WELL FOR A MOD AMOUNT OF YELLOW SPUTUM. PATIENT'S B/P @ 2130 WAS 160/72. WILL CONT TO MONITOR FOR ANY FURTHER CHANGES.
--- NOTE | 2020-05-15 00:32 | NUR ---
PT MEDICATED FOR ELEVATED BP OF 162/71, HR88 W/HYDRALIZINE.
--- NOTE | 2020-05-15 04:00 | NUR ---
PATIENT CONTINUES TO REST COMFORTABLY IN BED WITH EYES CLOSED--NO APPARENT DISTRESS NOTED. TRACH PATENT WITH 28% AEROSOL HUMIDIFIED PER MASK--TOLERATING WELL. CANELA PATENT AND DRAINING CLEAR YELLOW URINE TO BSB WITHOUT DIFFICULTY. PEG PATENT--FLUSHES WELL--SITE UNREMARKABLE WELL. WILL CONT TO MONITOR FOR ANY FURTHER CHANGES.
--- NOTE | 2020-05-15 08:06 | NUR ---
ASSESSMENT DONE. PT IS NONVERBAL AND DROSWY. NO S/S OF DISTRESS NOTED. PEG TUBE IN PLACE. TELE IN PLACE. NITHYA URINE IN CANELA AND PATENT.AIR MATTRESS IN PLACE.PT NPO.
[2020-05-15 08:30] LABS: HEMATOCRIT 32.1 % (37.0-47.0); HEMOGLOBIN 9.8 g/dl (12.0-16.0); MEAN CELL VOLUME 89.2 fL CALC (80.0-100.0); MEAN CORPUSCULAR HGB 27.2 pG CALC (26.0-32.0); MEAN CORPUSCULAR HGB CONC 30.5 g/dL CAL (32.0-36.0); RED BLOOD COUNT 3.6 mill/uL (4.20-5.60); RED CELL DISTRI WIDTH 14.2 % (11.5-15.5)
[2020-05-15 09:09] LABS: ALBUMIN 2.8 g/dL (3.2-5.0); ALKALINE PHOSPHATASE 54 u/l (38-126); ANION GAP 7 (6-22 (CALC)); BUN 9 mg/dL (8-23); BUN/CREATININE RATIO 32 (12-20 (CALC)); CARBON DIOXIDE 30 mmol/l (22-30); CHLORIDE 99 mmol/l (95-108); CREATININE 0.3 mg/dL (0.5-1.0); GFR > 60 ML/MIN (>=60 (CALC)); GFR FOR AFR.AMER. > 60 ML/MIN (>=60 (CALC)); POTASSIUM 3.3 mmol/l (3.5-5.1); SGOT/AST 19 u/l (9-36); SODIUM 132 mmol/l (137-146); TOTAL PROTEIN 5.5 g/dL (6.3-8.2)
[2020-05-15 09:11] LABS: BILIRUBIN, TOTAL 0.3 mg/dL (0.0-1.4)
--- NOTE | 2020-05-15 11:39 | NUR ---
PT IS RESTING ON HER RIGHT SIDE. MEDICATED PT WITH APRESOLINE FOR BP 179/87. TELE IN PLACE.
--- NOTE | 2020-05-15 13:52 | NUR ---
1X SOAP SUDS EDEMA DONE. LARGE AMONUT OF WATERY BROWN STOOL NOTED. PT TOERLATED WELL.
--- NOTE | 2020-05-15 16:15 | NUR ---
PT IS SLEEPING IN BED WITH NO S/S OF DISTRESS NOTED.
--- NOTE | 2020-05-15 16:27 | NUR ---
CALLED GRANDDAUGHTER LAURA [phone]. FOR UPDATE. PT IS NOT BEING TRANSSER. SHE VERBALIZED UNDERSATANDING.
--- NOTE | 2020-05-15 19:02 | NUR ---
REPORT RECEIVED FROM CARLOS ENRIQUE HUBER. PT RESTING IN BED, NO S/S OF DISTRESS AT THIS TIME. WILL CONTINUE TO MONITOR.
--- NOTE | 2020-05-15 22:10 | NUR ---
PT RESTING IN BED. ASSESSMANT COMPLETED. TRACHE IN PLACE W/ HUMIDIFIED O2 @ 5L. PEG TUBE IN PLACE. CANELA DRAINING TO GRAVITY. TELE IN PLACE. SAFETY PRECAUTIONS IN PLACE. WILL CONTINUE TO MONITOR.
--- NOTE | 2020-05-16 00:15 | NUR ---
PT RESTING IN BED, NO S/S OF DISTRESS AT THIS TIME. WILL CONTINUE TO MONTIOR.
[2020-05-16 01:39] VITALS: BP 197/91
--- NOTE | 2020-05-16 04:30 | NUR ---
PT RESTING IN BED. NO S/S OF DISTRESS
[2020-05-16 04:48] VITALS: BP 189/80
[2020-05-16 05:37] LABS: HEMATOCRIT 34.6 % (37.0-47.0); HEMOGLOBIN 10.6 g/dl (12.0-16.0); MEAN CELL VOLUME 88.5 fL CALC (80.0-100.0); MEAN CORPUSCULAR HGB 27.1 pG CALC (26.0-32.0); MEAN CORPUSCULAR HGB CONC 30.6 g/dL CAL (32.0-36.0); RED BLOOD COUNT 3.91 mill/uL (4.20-5.60); RED CELL DISTRI WIDTH 14.1 % (11.5-15.5)
[2020-05-16 05:55] LABS: ALKALINE PHOSPHATASE 56 u/l (38-126); ANION GAP 9 (6-22 (CALC)); BILIRUBIN, TOTAL 0.3 mg/dL (0.0-1.4); BUN 4 mg/dL (8-23); BUN/CREATININE RATIO 14 (12-20 (CALC)); CARBON DIOXIDE 30 mmol/l (22-30); CHLORIDE 97 mmol/l (95-108); CREATININE 0.3 mg/dL (0.5-1.0); GFR > 60 ML/MIN (>=60 (CALC)); GFR FOR AFR.AMER. > 60 ML/MIN (>=60 (CALC)); POTASSIUM 3.8 mmol/l (3.5-5.1); SGOT/AST 20 u/l (9-36); SODIUM 132 mmol/l (137-146); TOTAL PROTEIN 5.8 g/dL (6.3-8.2)
[2020-05-16 08:55] VITALS: BP 190/84
[2020-05-16 10:40] VITALS: BP 185/76
--- NOTE | 2020-05-16 12:25 | NUR ---
PATIENT OPENS EYES, NON VERBAL. ELEVATED BLOOD PRESSURE, SPOKE WITH DR ENRIQUEZ AND YARI, ORDERS GIVEN FOR NORVAC. PEG TUBE INTACT, FLUSHES WELL. ALSO INFORMED THEM THAT PATIENT DID NOT HAVE A DIET FOR TUBE FEEDING, NO ORDERS GIVEN. PATIENT REPOSITIONED, RED PATCHES ON BACK, BLANCHABLE. IV SITE FLUSHES, DRY AND INTACT,
[2020-05-16 15:31] VITALS: BP 177/61
--- NOTE | 2020-05-16 15:47 | NUR ---
Apressoline 10mg iv given for elevated bp. Spoke with granddaughter DNR, NO ANSWER GIVEN
[2020-05-16 19:11] VITALS: BP 163/83
--- NOTE | 2020-05-16 19:38 | NUR ---
REPORT RECEIVED FROM CARLOS ENRIQUE ARMSTRONG. PT RESTING IN BED. PT IS NONVERBAL. TRACHE IN PLACE WITH HUMIDIFIED O2. PEG TUBE IN PLACE. CANELA DRAINING TO GRAVITY. LUNGS SOUND CLEAR/DIMINISHED. PEDAL PULSES ARE STRONG. SAFETY PRECAUTIONS IN PLACE. WILL CONTINUE TO MONITOR.
[2020-05-17] VITALS: BP 157/76
--- NOTE | 2020-05-17 00:15 | NUR ---
PT RESTING IN BED, NO S/S OF DISTRESS AT THIS TIME.
--- NOTE | 2020-05-17 04:05 | NUR ---
PT RESTING IN BED, NO S/S OF DISTRESS AT THIS TIME. SAFETY PRECAUTIONS IN PLACE. WILL CONTINUE TO MONITOR.
[2020-05-17 05:30] VITALS: BP 150/79
[2020-05-17 05:58] LABS: ANION GAP 9 (6-22 (CALC)); BUN 3 mg/dL (8-23); BUN/CREATININE RATIO 10 (12-20 (CALC)); CARBON DIOXIDE 30 mmol/l (22-30); CHLORIDE 98 mmol/l (95-108); CREATININE 0.3 mg/dL (0.5-1.0); GFR > 60 ML/MIN (>=60 (CALC)); GFR FOR AFR.AMER. > 60 ML/MIN (>=60 (CALC)); MAGNESIUM 1.8 mg/dL (1.6-2.3); POTASSIUM 3.3 mmol/l (3.5-5.1); SODIUM 134 mmol/l (137-146)
--- NOTE | 2020-05-17 07:13 | NUR ---
PT RESTING IN BED, NO SIGNS OF DISTRESS NOTED, RESP EVEN AND UNLABORED. PT OPENS EYES TO SPEECH BUT NO RESPONSE, PT HAS TRACH WITH 02 FL HUMIDIFIED. VSS, PT ON AN AIR MATTRESS, SCD'S IN PLACE. CANELA DRAINING TO GRAVITY, PEG TO ABD, NOTED FOOT DROP TO BLE AND EDEMA. ASSESSMENT COMPLETED, CALL LIGHT IN REACH,CONTINUE TO MONITOR.
[2020-05-17 07:14] VITALS: BP 133/72
--- NOTE | 2020-05-17 09:10 | NUR ---
RT AT BEDSIDE TO SUCTION PT, PT HAD A BM, PERICARE GIVEN, BARRIER CREAM APPLIED TO DRY REDDENED AREAS, CALL LIGHT IN REACH,CONTINUE TO MONITOR.
[2020-05-17] MEDS ORDERED: KLOR-CON M2020 MEQ PO ×2 (10:23)
[2020-05-17] MEDS ORDERED: POT CHLORIDE20 ME2 VT ×2 (10:26)
[2020-05-17 11:06] VITALS: BP 155/86
--- NOTE | 2020-05-17 13:38 | NUR ---
PT RESTING IN BED WITH EYES CLOSED, NO SIGNS OF DISTRESS NOTED, RESP EVEN AND UNLABORED. CALL LIGHT IN REACH,CONTINUE TO MONITOR.
[2020-05-17 14:32] VITALS: BP 135/86
--- NOTE | 2020-05-17 16:18 | NUR ---
IV site discontinued, cath intact. No edema , no redness, voices no discomfort.
--- NOTE | 2020-05-17 16:24 | NUR ---
Discharge instructions given. Patient verbalizes understanding of same. Discharged in stable condition via Medical Transport to Home with staff. All belongings sent with pt.
--- NOTE | 2020-05-17 16:30 | NUR ---
CALL MADE TO GRANDDAUGHTER AND NOTIFIED PT IS TO ARRIVE SHORLTY.
== END 2020-05-17 16:21 | disposition home health service (06) | DRG 392 ==
LOC: ED 01:42 → ED-I 06:21 → ED 06:48 → ICU 06:49 → MS2 05-12 14:29
PROVIDERS: Family Medicine; Internal Medicine; Nurse Practitioner Family; ADMIT Internal Medicine; ATTEND Internal Medicine
DX: K59.01 Slow transit constipation (principal); J96.11 Chronic respiratory failure with hypoxia; E87.6 Hypokalemia; K52.89 Other specified noninfective gastroenteritis and colitis; I12.9 Hypertensive chronic kidney disease with stage 1 through stage 4 chronic kidney disease, or unspecified chronic kidney disease; E11.22 Type 2 diabetes mellitus with diabetic chronic kidney disease; N18.9 Chronic kidney disease, unspecified; I69.928 Other speech and language deficits following unspecified cerebrovascular disease; F03.90 Unspecified dementia, unspecified severity, without behavioral disturbance, psychotic disturbance, mood disturbance, and anxiety; I48.91 Unspecified atrial fibrillation; I34.1 Nonrheumatic mitral (valve) prolapse; I25.10 Atherosclerotic heart disease of native coronary artery without angina pectoris; Z93.0 Tracheostomy status; Z93.1 Gastrostomy status; Z74.01 Bed confinement status; Z96.0 Presence of urogenital implants; Z22.39 Carrier of other specified bacterial diseases; Z20.828 Contact with and (suspected) exposure to other viral communicable diseases
CPT/HCPCS: J1650; J3475; Q3014; Q9967

== ENCOUNTER 2020-06-03 01:36 | Observation (INO) | payer MEDICARE, MEDICAID ==
[~2020-06-03] VITALS: Ht 172.7 cm; Wt 86.0 kg
[~2020-06-03 01:36] MED LIST changes: +ALL DAY ALLG10 MG PO; +KEPPRA XR500 MG PO; +LACTULOSE PO; +LODINE XL400 MG PO; +POT CHLORIDE20 ME2 VT; +SENNA8.8 MG/5 M
--- NOTE | 2020-06-03 01:36 | NUR ---
PATIENT TO ROOM 6 VIA EMS STRETCHER. PATIENT ARRIVES IN A GOWN. PATIENT HAS TRACH, CANELA AND PEG TUBE IN PLACE. TRIAGE COMPLETED PER PATIENT PREVIOUS VISITS.
--- NOTE | 2020-06-03 02:00 | NUR ---
PT RESTING. NO SEIZURE ACTIVITY. IV BY EMS IS NOT FUNCTIONING. CANELA PATENT WITH CLOUDY/NITHYA WITH SEDIMENT. PEG TUBE PRESENT. CM/SR. TRACH PRESENT WITH CAP. HOB ELEVATED. PT HAS SMALL EXCORIATED AREA ON COXXYX.
--- NOTE | 2020-06-03 02:16 | NUR ---
RT HERE TO PROVIDE HUMIDIFIED O2
--- NOTE | 2020-06-03 02:18 | NUR ---
SATS 84-86%. RT HERE TO PLACE PT ON HUMIDIFIED O2 VIA TRACH.
--- NOTE | 2020-06-03 02:22 | NUR ---
LAB AT BEDSIDE. I WAS UNABLE TO GET BLOOD FROM EMS IV IT WOULD NOT FLUSH. REMOVED AND NEW IV STARTED IN LEFT FOREARM. STILL UNABLE TO GET BLOOD. URINE SAMPLE OBTAINED FROM CANELA CATH WHICH PT ARRIVED WITH.
--- NOTE | 2020-06-03 02:32 | NUR ---
RT AND LAB HERE FOR BLOOD CULTURES #2 AND ABG'S.
[2020-06-03 02:50] LABS: HEMATOCRIT 37.8 % (37.0-47.0); HEMOGLOBIN 11.5 g/dl (12.0-16.0); IMMATURE GRANULOCYTES 0.2 % (0.0-5.0); MEAN CELL VOLUME 89.6 fL CALC (80.0-100.0); MEAN CORPUSCULAR HGB 27.3 pG CALC (26.0-32.0); MEAN CORPUSCULAR HGB CONC 30.4 g/dL CAL (32.0-36.0); NEUT# 7.64 thou/uL (2.00-7.15); RED BLOOD COUNT 4.22 mill/uL (4.20-5.60); RED CELL DISTRI WIDTH 14.3 % (11.5-15.5)
--- NOTE | 2020-06-03 02:50 | NUR ---
PT HAVING FOCAL SEIZURE. NOTIFIED. ATIVAN ORDERED
[2020-06-03 02:52] LABS: URINE BILIRUBIN - DIPSTICK NEGATIVE (NEGATIVE); URINE BLOOD DIPSTICK TRACE-INTACT (NEGATIVE); URINE COLOR YELLOW; URINE GLUCOSE - DIPSTICK NEGATIVE (NEGATIVE); URINE KETONE NEGATIVE (NEGATIVE); URINE NITRITE - DIPSTICK NEGATIVE (Negative); URINE PROTEIN - DIPSTICK 100 mg/dL (NEG-TRACE); URINE SPECIFIC GRAVITY 1.025; URINE UROBILINOGEN - DIPSTICK 0.2 E.U./dL (0.2)
[2020-06-03 02:53] LABS: URINE LEUK ESTERASE MODERATE (NEGATIVE)
--- NOTE | 2020-06-03 02:54 | NUR ---
DR TO BEDSIDE. ATIVAN GIVEN.
--- NOTE | 2020-06-03 02:55 | NUR ---
SEIZURE STOPPED. PT RESTING.
[2020-06-03 03:04] LABS: URINE BACTERIA MANY hpf; URINE SQUAMOUS EPITHELIAL CELL FEW EPI/hpf (0-FEW); URINE WBC TNTC WBC/hpf (0-5)
[2020-06-03 03:07] LABS: ALBUMIN 3.7 g/dL (3.2-5.0); ALKALINE PHOSPHATASE 62 u/l (38-126); BUN 15 mg/dL (8-23); BUN/CREATININE RATIO 45 (12-20 (CALC)); CARBON DIOXIDE 31 mmol/l (22-30); CHLORIDE 99 mmol/l (95-108); CREATININE 0.3 mg/dL (0.5-1.0); GFR > 60 ML/MIN (>=60 (CALC)); GFR FOR AFR.AMER. > 60 ML/MIN (>=60 (CALC)); LIPASE 45 u/l (23-300); SGOT/AST 22 u/l (9-36); SODIUM 136 mmol/l (137-146); TOTAL PROTEIN 6.9 g/dL (6.3-8.2)
[2020-06-03 03:19] LABS: AMYLASE < 30 u/l (30-110); ANION GAP 10 (6-22 (CALC)); BILIRUBIN, TOTAL 0.5 mg/dL (0.0-1.4); MYOGLOBIN 28 ng/mL (0 - 62); POTASSIUM 4.4 mmol/l (3.5-5.1)
--- NOTE | 2020-06-03 03:45 | NUR ---
PATIENT MEDICATED ADDITIONALLY FOR FOCAL SEIZURE IN FACE. WILL MONITOR FOR EFFECT.
--- NOTE | 2020-06-03 04:05 | NUR ---
RETURNED FROM CT VIA STRETCHER. NO SEIZURE ACTIVITY NOTED AT THIS TIME. PT RE-CONNECTED TO EQUIP. CALM. VSS.
--- NOTE | 2020-06-03 05:14 | NUR ---
PT RESTING. NO SEIZURE ACTIVITY.
--- NOTE | 2020-06-03 05:22 | NUR ---
ATTEMPTED TO CALL REPORT. NURSE IN ROOM WILL CALL BACK.
--- NOTE | 2020-06-03 05:37 | NUR ---
REPORT CALLED TO DUY ON SPEAKER.
--- NOTE | 2020-06-03 05:50 | NUR ---
PT ARRIVED TO MED SURG UNIT VIA STRETCHER ACCOMPANIED BY ED NURSE. PT SLID TO BED FROM STRETCHER TOLERATED WELL. PT CLEANED OF INCONTINENT LOOSE BROWN LIQUID STOOL X2 AND PICTURES OBTAINED FOR CHART AND SAFETY. SUCTION, YANKOR AT BEDSIDE AND TRACH COLLAR TO OXYGEN BY ED NURSE.
--- NOTE | 2020-06-03 05:50 | NUR ---
TO FLOOR VIA STRETCHER WITH POCKET MONITOR/TRACH COLLAR/CANELA/PEG TUBE AND LEVAQUIN INFUSING VIA PUMP. PT TRANSFERRED TO BED WITH 4 STAFF. NO CHANGE IN NEURO STATUS. NO SEIZURE ACTIVITY SINCE LAST ATIVAN.
[2020-06-03 06:30] VITALS: BP 178/79
--- NOTE | 2020-06-03 06:46 | NUR ---
CALLED ED PHYSICIAN TO NOTIFY OF ELEVATED BP, AWAITING CALLBACK AT THIS TIME FOR ORDERS.
--- NOTE | 2020-06-03 06:53 | NUR ---
ORDERS RECEIVED FOR ELEVATED BP FROM ED PHYSICIAN
--- NOTE | 2020-06-03 07:15 | NUR ---
REPORT RECEIVED FROM CARLOS ENRIQUE BRITO;PT RESTING IN SEMI FOWLERS POSITION;NO S/S OF DISTRESS NOTED;RESPIRATIONS EVEN AND UNLABORED ON TRECH COLLAR AT 40% OXYGEN;IV FLUIDS INFUSING WITH EASE PER ORDER;TELE MONITORING IN PLACE;ALL SAFETY PRECAUTIONS NOTED WITH BED IN THE LOWEST POSITION AND SEIZURE PRECAUTIONS IN PLACE;CALL LIGHT IN REACH;WILL CONTINUE TO MONITOR
[2020-06-03] MEDS ORDERED: SIMVASTATIN40 MG VT (07:26)
[2020-06-03] MEDS ORDERED: EFFER-K20 MEQ PO (07:26)
[2020-06-03] MEDS ORDERED: ZESTRIL40 MG VT (07:27)
[2020-06-03] MEDS ORDERED: LACTULOSE10 GM/15 M PO (07:27)
[2020-06-03] MEDS ORDERED: METOPROL TAR100 MG VT (07:28)
[2020-06-03] MEDS ORDERED: DIVALPROEX125 M1 VT (07:29)
[2020-06-03] MEDS ORDERED: KEPPRA250 M1 VT (07:29)
[2020-06-03] MEDS ORDERED: GABAPENTIN300 M2 VT (07:29)
--- NOTE | 2020-06-03 08:00 | NUR ---
PT RESTING IN SEMI FOWLERS POSITION,NON VERBAL;VS OBTAINED AND ASSESSMENT COMPLETED, CURRENT BP 197/96 HR 97;PT TO BE MEDICATED WITH PRN CLODINE 0.2MG AT THIS TIME;RESPIRATIONS EVEN AND UNLABORED ON TRECH COLLAR AT 40% OXYGEN;ABDOMEN SOFT ON PALPATION AND ACTIVE IN ALL 4 QUADRANTS;CANELA CATHETER PATENT DRAINING YELLOW URINE TO GRAVITY WITH EASE;WEAK PEDAL PULSES;PEG TUBE TO RUQ PATENT WITH 0 RESIDUAL AT THIS TIME;TELE MONITORING IN PLACE;#22G TO LEFT WRIST INFUSING NS @125ML/HR,SITE APPEARS HEALTHY;ACCUCHECK 139, NO COVERAGE NEEDED;SCABBED AREA TO LFA AND BREAKDOWN NOTED TO COCCYX,PHOTOGRAPHS IN CHART;ALL SAFETY PRECAUTIONS IN PLACE INCLUDING SEIZURE PRECAUTIONS;BED IN THE LOWEST POSITION AND CALL LIGHT IN REACH;WILL CONTINUE TO MONITOR
[2020-06-03 08:02] VITALS: BP 197/96
--- NOTE | 2020-06-03 09:10 | NUR ---
BP RE-CHECK
[2020-06-03 09:12] VITALS: BP 111/56
[2020-06-03 10:33] VITALS: BP 109/60
--- NOTE | 2020-06-03 12:45 | NUR ---
PT RESTING IN SEMI FOWLERS POSITION;RESPIRATIONS REMAIN EVEN AND UNLABORED ON TRACH COLLAR @ 40%;NO S/S OF DISTRESS NOTED;TELE MONITORING IN PLACE;IV SITE PATENT AND INFUSING WITH EASE;CANELA CATHETER PATENT;ACCUCHECK 130, NO COVERAGE NEEDED;TUBE FEEDING PROVIDED AT THIS TIME, 0 RESIDUAL NOTED PRIOR TO FEEDING;ASSESSMENT REMAINS UNCHANGED AT THIS TIME;FALL AND SEIZURE PRECAUTIONS IN PLACE;CALL LIGHT IN REACH;WILL CONTINUE TO MONITOR
[2020-06-03 15:02] VITALS: BP 138/74
--- NOTE | 2020-06-03 15:20 | NUR ---
PT RESTING IN SEMI FOWLERS POSITION WITH GRAND DAUGHTER AT BEDSIDE;RESPIRATIONS EVEN AND UNLABORED ON TRACH COLLAR @ 40% OXYGEN;NO S/S OF DISTRESS NOTED;TELE MONTIORING IN PLACE;IV FLUIDS INFUSING WITH EASE PER ORDER;CANELA CATHETER PATENT DRAINING TO GRAVITY WITH EASE;PT RE-POSITIONED TO RIGHT SIDE LAYING POSITION AT THIS TIME;ALL SAFETY PRECAUTIONS REMAINS IN PLACE WITH CALL LIGHT IN REACH;WILL CONTINUE TO MONITOR
--- NOTE | 2020-06-03 15:25 | NUR ---
VICENTE ANRP AT BEDSIDE
--- NOTE | 2020-06-03 15:33 | NUR ---
RT AT BEDSIDE DEEP SUCTIONING PT TRACH.
[2020-06-03 18:23] VITALS: BP 143/75
--- NOTE | 2020-06-03 19:03 | NUR ---
REPORT FROM ANKUR PARIKH. PT NOTED RESTING IN BED. NO APPARENT DISTRESS NOTED. RESPIRATIONS EVEN AND UNLABORED. TRACH COLLAR @ 40% O2. CANELA PATENT DRAINING TO GRAVITY. IV FLUIDS INFUSING WITHOUT DIFFICULTY. PEGTUBE NOTED, SITE APPEARS HEALTHY. SUPPLY CHAIN TECH IN PLACE. SEIZURE PRECAUTIONS IN PLACE. CALL LIGHT WITHIN REACH. WILL CONTINUE TO MONITOR.
--- NOTE | 2020-06-03 22:21 | NUR ---
PT INCONTINENT OF BOWELS AT THIS TIME. PERICARE AND LINENS CHANGED AT THIS TIME. CANELA REMAINS PATENT DRAINING TO GRAVITY. NO APPARENT DISTRESS NOTED. RESPIRATIONS EVEN AND UNLABORED. PT REPOSITIONED WITH PILLOWS ON RIGHT SIDE. CALL LIGHT WITHIN REACH. WILL CONTINUE TO MONITOR.
[2020-06-04 00:20] VITALS: BP 132/67
--- NOTE | 2020-06-04 00:20 | NUR ---
PT REPOSITIONED IN BED WITH PILLOWS. NO APPARENT DISTRESS NOTED. RESPIRATIONS EVEN AND UNLABORED, WITH 40% O2 VIA TRACH COLLAR. VSS. CANELA REMAINS PATENT. CALL LIGHT WITHIN REACH. WILL CONTINUE TO MONITOR.
--- NOTE | 2020-06-04 02:10 | NUR ---
PT REPOSITIONED TO BACK AT THIS TIME. TRACH AND ORAL SUCTION PROVIDED AT THIS TIME. NO APPARENT DISTRESS NOTED. CANELA REMAINS PATENT. NOVELTY CANDY MAKER IN PLACE. CALL LIGHT WITHIN REACH. WILL CONTINUE TO MONITOR.
[2020-06-04 04:23] VITALS: BP 138/53
[2020-06-04 06:08] LABS: HEMATOCRIT 37.7 % (37.0-47.0); HEMOGLOBIN 12.2 g/dl (12.0-16.0); IMMATURE GRANULOCYTES 0.3 % (0.0-5.0); MEAN CELL VOLUME 90.6 fL CALC (80.0-100.0); MEAN CORPUSCULAR HGB 29.3 pG CALC (26.0-32.0); MEAN CORPUSCULAR HGB CONC 32.4 g/dL CAL (32.0-36.0); NEUT# 2.99 thou/uL (2.00-7.15); RED BLOOD COUNT 4.16 mill/uL (4.20-5.60); RED CELL DISTRI WIDTH 12.6 % (11.5-15.5)
[2020-06-04 06:27] LABS: ALBUMIN 3.7 g/dL (3.2-5.0); ALKALINE PHOSPHATASE 63 u/l (38-126); ANION GAP 9 (6-22 (CALC)); BUN 33 mg/dL (8-23); BUN/CREATININE RATIO 35 (12-20 (CALC)); CARBON DIOXIDE 28 mmol/l (22-30); CHLORIDE 105 mmol/l (95-108); GFR 54 ML/MIN (>=60 (CALC)); GFR FOR AFR.AMER. > 60 ML/MIN (>=60 (CALC)); SODIUM 138 mmol/l (137-146)
[2020-06-04 06:28] LABS: BILIRUBIN, TOTAL 0.2 mg/dL (0.0-1.4); SGOT/AST 43 u/l (9-36)
[2020-06-04 08:26] VITALS: BP 150/66
--- NOTE | 2020-06-04 08:26 | NUR ---
RECIEVED REPORT FROM JL PEREZ. PT RESTING IN SEMI FOWLERS POSTIION WITH RESPIRATIONS EVEN AND UNLABORED. PT NONVERBAL. ASSESSMENT AD VITALS COMPLETED AT THIS TIME. BP 150/66, HR 81, 02 99% ON 40% TRACH COLLAR. RESPIRATIONS ARE EVEN AND UNLABORED WITH NO SIGNS OF DISTRESS NOTED. HEART RHYTHM IS NORMAL WITH TELE IN PLACE. RADIAL PULSES STRONG.BOWEL SOUNDS ARE ACTIVE IN ALL QUADRANTS AND SOFT ON PALPATION. PEG TUBE NOTED. PEDAL PULSES WEAK. #22 IN LW RUNNING WITH NS PER ORDER, SITE APPEARS HEALTHY AND PATENT. CANELA IN PLACE DRAINING WITH GRAVITY. NO SIGNS OF PAIN OR DISCMFORTS AT THIS TIME. ALL SAFETY PRECAUTIONS ARE IN PLACE WITH CALL LIGHT IN REACH. WILL CONTINUE TO MONITOR.
[2020-06-04] MEDS ORDERED: KEPPRA250 M1 VT ×2 (09:06)
[2020-06-04] MEDS ORDERED: DIASTAT ACUDIAL10 MG PR (09:20)
--- NOTE | 2020-06-04 09:40 | NUR ---
PT INCONTIENT OF BOWEL AT THIS TIME. WRITTER ASSISTED JAMES FOY WITH COMPLETE BED BATH AND LINEN CHANGING. PT PRESENTS WITH BREAK DOWN OF BUTTOCK, DUDERM APPLIED. CATHATER BAG CHANGED, CLEAR YELLOW URINE DRAINING WITH GRAVITY. NO APPERENT SIGNS OF ANY DISTRESS AT THIS TIME.ALL SAFTEY PRECAUTIONS ARE IN PLACE WITH CALL LIGHT IN REACH.W ILL CONTINUE TO MONITOR
[2020-06-04] MEDS ORDERED: KEPPRA750 M2 PO (10:13)
[2020-06-04 10:56] VITALS: BP 138/67
--- NOTE | 2020-06-04 12:45 | NUR ---
PT RESTING IN SEMI FOLWERS POSITION UPON ENTERING ROOM. NO APPARENT DISTRESS NOTED. RESPIRATIONS ARE EVEN AND UNLABORED ON TRACH COLLAR 40% OXYGEN. CANELA IN PLACE, TUBING UNKINKED FLOWING WITH GRAVITY. TRANSPORTATION FOR DISCHARGE SCHEDULED AT 1500.ALL SFAETY PRECAUTIONS ARE IN PLACE WITH CALL LIGHT IN REACH. WILL CONTINUE TO MONITOR
--- NOTE | 2020-06-04 13:40 | NUR ---
PEG TUBE FEEDING ADMINISTERED. PT TOLERATED WELL.
--- NOTE | 2020-06-04 13:42 | NUR ---
DISCHARGE INSTRUCTION GIVEN TO [facility] OVER PHONE. VERBALIZED UNDERSTANDING. GRANDDAUGHTER REQUESTING DIAZEPAM GET GIVEN IN INJECTION FORM RATHER THAN PER RECTUM. WRITTER NOTIFIED GRANDDAUGHTER THAT FORTUNATO ZHANG WILL BE NOTIFIED OF REQUEST AND A CALL WILL BE RETURNED BACK TO HER. GRANDDAUGHTER VERBAILZED UNDERSTANDING. Esther ORONA RN WITNESSED. ALL SAFTEY PRECAUTIONS ARE IN PLACE WILL CONTINUE TO MONITOR.
--- NOTE | 2020-06-04 14:32 | NUR ---
#22G REMOVED FROM LW WITH CATHATER STILL INTACT. PT TOLERTED WELL. PT TO BE DISCHARGE VIA [facility]
--- NOTE | 2020-06-04 14:33 | NUR ---
Discharge instructions given. Patient verbalizes understanding of same. Discharged in stable condition via Medical Transport to Home with staff. All belongings sent with pt. PT DISCHARGE VIA [facility] IN STABLE CONDIOTN VIA STRETCHER. ALL BELONGINGS AND DISCHARGE INSTRUCTIONS GONE WITH PT .
== END 2020-06-04 14:37 | disposition home health service (06) ==
LOC: ED 01:36 → ED-I 04:22 → ED 05:06 → MS2 05:07
PROVIDERS: Emergency Medicine; Nurse Practitioner; ADMIT Internal Medicine; ATTEND Internal Medicine
DX: G40.909 Epilepsy, unspecified, not intractable, without status epilepticus (principal); N39.0 Urinary tract infection, site not specified; J42 Unspecified chronic bronchitis; I12.9 Hypertensive chronic kidney disease with stage 1 through stage 4 chronic kidney disease, or unspecified chronic kidney disease; E11.22 Type 2 diabetes mellitus with diabetic chronic kidney disease; N18.9 Chronic kidney disease, unspecified; I34.1 Nonrheumatic mitral (valve) prolapse; F03.90 Unspecified dementia, unspecified severity, without behavioral disturbance, psychotic disturbance, mood disturbance, and anxiety; B96.5 Pseudomonas (aeruginosa) (mallei) (pseudomallei) as the cause of diseases classified elsewhere; Z86.73 Personal history of transient ischemic attack (TIA), and cerebral infarction without residual deficits; Z96.0 Presence of urogenital implants; Z93.1 Gastrostomy status; Z93.0 Tracheostomy status; Z79.899 Other long term (current) drug therapy; Z87.440 Personal history of urinary (tract) infections; Z99.81 Dependence on supplemental oxygen; Z20.828 Contact with and (suspected) exposure to other viral communicable diseases; R00.1 Bradycardia, unspecified; I49.9 Cardiac arrhythmia, unspecified; E11.9 Type 2 diabetes mellitus without complications; I69.398 Other sequelae of cerebral infarction; Z76.0 Encounter for issue of repeat prescription; Z22.39 Carrier of other specified bacterial diseases
CPT/HCPCS: G0378; J1953; J1956; J2060

== ENCOUNTER 2020-06-04 16:31 | Emergency (ER) | payer MEDICARE, MEDICAID ==
[~2020-06-04] VITALS: Ht 172.7 cm; Wt 81.0 kg
[~2020-06-04 16:31] MED LIST changes: +DIASTAT ACUDIAL10 MG PR; +DIVALPROEX125 M1 VT; +EFFER-K20 MEQ PO; +GABAPENTIN300 M2 VT; +KEPPRA250 M1 VT; +KEPPRA750 M2 PO; +LACTULOSE10 GM/15 M PO; +METOPROL TAR100 MG VT; +SIMVASTATIN40 MG VT; +ZESTRIL40 MG VT
[2020-06-04 17:27] LABS: IMMATURE GRANULOCYTES 0.3 % (0.0-5.0); MEAN CELL VOLUME 90.6 fL CALC (80.0-100.0); MEAN CORPUSCULAR HGB 26.8 pG CALC (26.0-32.0); MEAN CORPUSCULAR HGB CONC 29.6 g/dL CAL (32.0-36.0); NEUT# 4.68 thou/uL (2.00-7.15); RED BLOOD COUNT 3.39 mill/uL (4.20-5.60); RED CELL DISTRI WIDTH 14.5 % (11.5-15.5)
[2020-06-04 17:29] LABS: HEMATOCRIT 30.7 % (37.0-47.0); HEMOGLOBIN 9.1 g/dl (12.0-16.0)
[2020-06-04 17:52] LABS: ACT PARTIAL THROMBO TIME 24.1 SECONDS (20.0-32.5); ALBUMIN 3.3 g/dL (3.2-5.0); ALKALINE PHOSPHATASE 48 u/l (38-126); ANION GAP 11 (6-22 (CALC)); BILIRUBIN, TOTAL 0.2 mg/dL (0.0-1.4); BUN 25 mg/dL (8-23); BUN/CREATININE RATIO 59 (12-20 (CALC)); CARBON DIOXIDE 27 mmol/l (22-30); CHLORIDE 101 mmol/l (95-108); CREATININE 0.4 mg/dL (0.5-1.0); GFR > 60 ML/MIN (>=60 (CALC)); GFR FOR AFR.AMER. > 60 ML/MIN (>=60 (CALC)); INTERNATIONAL NORMALIZED RATIO 1.2 RATIO (0.7-1.3); POTASSIUM 3.3 mmol/l (3.5-5.1); PROTHROMBIN TIME 11.4 SECONDS (9.0-12.5); SGOT/AST 20 u/l (9-36); SODIUM 135 mmol/l (137-146); TOTAL PROTEIN 6.3 g/dL (6.3-8.2)
[2020-06-04 19:20] VITALS: BP 179/74
== END 2020-06-04 19:20 | disposition home or self-care (01) ==
LOC: ED 16:31
PROVIDERS: Student in an Organized Health Care Education/Training Program
DX: I49.9 Cardiac arrhythmia, unspecified (principal); I10 Essential (primary) hypertension; E11.9 Type 2 diabetes mellitus without complications; I34.1 Nonrheumatic mitral (valve) prolapse; F03.90 Unspecified dementia, unspecified severity, without behavioral disturbance, psychotic disturbance, mood disturbance, and anxiety; I69.398 Other sequelae of cerebral infarction; Z96.0 Presence of urogenital implants; Z93.1 Gastrostomy status; Z93.0 Tracheostomy status; Z87.440 Personal history of urinary (tract) infections; Z22.39 Carrier of other specified bacterial diseases

== ENCOUNTER 2020-06-19 22:56 | Observation (INO) | payer MEDICARE, MEDICAID ==
[~2020-06-19] VITALS: Ht 172.7 cm; Wt 82.1 kg
--- NOTE | 2020-06-19 22:56 | NUR ---
PT TO ROOM 10 BY EMS. REPORTED SEIZURE ACTIVITY BY FAMILY.
--- NOTE | 2020-06-19 23:00 | NUR ---
PT HAS PEG TUBE AND CANELA CATHETER ALREADY IN PLACE. PT IS NON VERBAL NON RESPONSIVE. PT DID RECEIVE VERSED 4MG BY EMS.
[2020-06-19 23:32] LABS: IMMATURE GRANULOCYTES 0.3 % (0.0-5.0); MEAN CORPUSCULAR HGB 27.9 pG CALC (26.0-32.0); MEAN CORPUSCULAR HGB CONC 30.6 g/dL CAL (32.0-36.0); NEUT# 4.43 thou/uL (2.00-7.15); RED BLOOD COUNT 4.09 mill/uL (4.20-5.60); RED CELL DISTRI WIDTH 14.1 % (11.5-15.5)
[2020-06-19 23:33] LABS: HEMATOCRIT 37.2 % (37.0-47.0); HEMOGLOBIN 11.4 g/dl (12.0-16.0)
[2020-06-19 23:48] LABS: ALBUMIN 3.3 g/dL (3.2-5.0); ALKALINE PHOSPHATASE 51 u/l (38-126); ANION GAP 9 (6-22 (CALC)); BUN 12 mg/dL (8-23); BUN/CREATININE RATIO 33 (12-20 (CALC)); CARBON DIOXIDE 32 mmol/l (22-30); CHLORIDE 99 mmol/l (95-108); CREATININE 0.4 mg/dL (0.5-1.0); GFR > 60 ML/MIN (>=60 (CALC)); GFR FOR AFR.AMER. > 60 ML/MIN (>=60 (CALC)); MAGNESIUM 1.8 mg/dL (1.6-2.3); POTASSIUM 3.7 mmol/l (3.5-5.1); SGOT/AST 19 u/l (9-36); SODIUM 136 mmol/l (137-146); TOTAL PROTEIN 6.2 g/dL (6.3-8.2)
--- NOTE | 2020-06-20 | NUR ---
PT INCONTINENT LARGE AMOUNT OF LIQUID STOOL. CLEANED AND CHANGED PT AND BED.
[2020-06-20 00:12] LABS: BILIRUBIN, TOTAL 0.3 mg/dL (0.0-1.4)
--- NOTE | 2020-06-20 00:12 | NUR ---
UNABLE TO VERIFY MEDICATION LIST WITH PT DUE TO NON VERBAL.
--- NOTE | 2020-06-20 01:10 | NUR ---
NO SEIZURE ACTIVITY WHILE IN ER.
--- NOTE | 2020-06-20 01:27 | NUR ---
ROOM 260 ASSIGNED FOR PT, ER AWARE.
--- NOTE | 2020-06-20 01:30 | NUR ---
REPORT GIVEN TO CARLOS ENRIQUE AMBRIZ.
--- NOTE | 2020-06-20 01:30 | NUR ---
TELEPHONE REPORT RECEIVED FROM Jocelyne ARANDA RN IN ED, ROOM 260 PREPARED TO RECEIVE PT.
[2020-06-20 01:37] LABS: URINE BILIRUBIN - DIPSTICK NEGATIVE (NEGATIVE); URINE BLOOD DIPSTICK NEGATIVE (NEGATIVE); URINE COLOR YELLOW; URINE GLUCOSE - DIPSTICK NEGATIVE (NEGATIVE); URINE KETONE TRACE mg/dL (NEGATIVE); URINE PH 6.5 (4.5-8.0); URINE PROTEIN - DIPSTICK 100 mg/dL (NEG-TRACE); URINE SPECIFIC GRAVITY 1.025; URINE UROBILINOGEN - DIPSTICK 0.2 E.U./dL (0.2)
--- NOTE | 2020-06-20 01:38 | NUR ---
Admission Note Report Given to: CARLOS ENRIQUE AMBRIZ Transported by: Wheelchair X Stretcher Transported with: X Nurse Transporter X Patent IV X O2 Catalytic Converter Operator Helper Location: ICU X MS2
--- NOTE | 2020-06-20 01:39 | NUR ---
PT ARRIVES TO UNIT AT 0139 VIA STRETCHER, ACCOMPANIED BY Wendy QUINN LPN. PT SLID OVER TO BED AND POSITIONED FOR COMFORT. PHYSICAL ASSESEMENT COMPLETE. SEIZURE PRECAUTIONS IN PLACE.
[2020-06-20 01:40] VITALS: BP 111/57
[2020-06-20 01:59] LABS: URINE LEUK ESTERASE SMALL (NEGATIVE); URINE NITRITE - DIPSTICK POSITIVE (Negative)
[2020-06-20 02:03] LABS: URINE BACTERIA MANY hpf; URINE SQUAMOUS EPITHELIAL CELL FEW EPI/hpf (0-FEW); URINE WBC 50-100 WBC/hpf (0-5)
[2020-06-20 04:20] VITALS: BP 149/70
--- NOTE | 2020-06-20 05:08 | NUR ---
ASSESMENT REMAINS UNCHANGED FROM BASELINE. NO SEIZURE ACTIVITY NOTED. PT APPEARS COMFORTABLE AND NO APPARENT DISTRESS. RESPIRATIONS REGULAR AND UNLABORED.
[2020-06-20] MEDS ORDERED: CIPROFLOXACN250 MG VT (07:29)
[2020-06-20] MEDS ORDERED: SIMVASTATIN40 MG VT (07:30)
[2020-06-20] MEDS ORDERED: EFFER-K20 MEQ VT (07:31)
[2020-06-20] MEDS ORDERED: CONSTULOSE10 GM/15 M VT (07:32)
[2020-06-20] MEDS ORDERED: ZESTRIL40 MG VT (07:32)
[2020-06-20] MEDS ORDERED: LEVETIRACETAM500 MG VT (07:34)
[2020-06-20] MEDS ORDERED: METOPROL TAR100 MG VT (07:34)
[2020-06-20] MEDS ORDERED: GABAPENTIN300 M2 VT (07:36)
[2020-06-20] MEDS ORDERED: DIVALPROEX125 M1 VT (07:38)
[2020-06-20 09:49] VITALS: BP 115/62
--- NOTE | 2020-06-20 09:49 | NUR ---
PT SLEEPING IN BED. NON VERBAL. TRACH IN PLACE WITH O2 @2L IN PLACE. CANELA CATHETER DRAINING VIA GRAVITY WITH YELLOW URINE NOTED. PEG TUBE IN PLACE. REDDNESS NOTED TO COCCYX NOTED, SEE CHART FOR PHOTO. ASSESSMENT COMPLETED. BED IN LOWEST POSITION WITH SIDE RAILS PADDED FOR SEIZURE PRECAUTIONS. CONTINUE TO MONITOR.
[2020-06-20] MEDS ORDERED: DEPAKOTE SPR125 MG PO (11:47)
[2020-06-20] MEDS ORDERED: DIAZEPAM RE (11:51)
--- NOTE | 2020-06-20 12:35 | NUR ---
PT SLEEPING IN BED. NO DISTRESS NOTED. RESP EVEN AND UNLABORED. CONTINUE TO MONITOR.
--- NOTE | 2020-06-20 12:52 | NUR ---
PT SUCTIONED WITH THE HELP OF RT. PT TOLERATED WELL
[2020-06-20 15:00] VITALS: BP 181/99
--- NOTE | 2020-06-20 15:07 | NUR ---
PT SLEEPING IN BED. NO DISTRESS NOTED. CONTINUE TO MONITOR.
[2020-06-20 16:05] VITALS: BP 162/84
--- NOTE | 2020-06-20 17:31 | NUR ---
PT SLEEPING IN BED. NO DISTRESS NOTED. CONTINUE TO MONITOR.
--- NOTE | 2020-06-20 18:30 | NUR ---
D/C INSTRUCTIONS REVIEWED WITH PTS GRAND-DAUGHTER. SHE VERBALIZED UNDERSTANDING. PT LEFT VIA STRETCHER WITH [facility]. PT IN STABLE CONDITION WITH HOME O2 TUBING IN PLACE.
== END 2020-06-20 18:27 | disposition home health service (06) ==
LOC: ED 22:56 → ED-I 06-20 00:52 → ED 06-20 01:03 → MS2 06-20 01:03
PROVIDERS: Family Medicine; ADMIT Internal Medicine; ATTEND Internal Medicine
DX: G40.411 Other generalized epilepsy and epileptic syndromes, intractable, with status epilepticus (principal); I12.9 Hypertensive chronic kidney disease with stage 1 through stage 4 chronic kidney disease, or unspecified chronic kidney disease; E11.22 Type 2 diabetes mellitus with diabetic chronic kidney disease; N18.9 Chronic kidney disease, unspecified; I69.998 Other sequelae following unspecified cerebrovascular disease; I34.1 Nonrheumatic mitral (valve) prolapse; F03.90 Unspecified dementia, unspecified severity, without behavioral disturbance, psychotic disturbance, mood disturbance, and anxiety; Z93.1 Gastrostomy status; Z93.0 Tracheostomy status; Z74.01 Bed confinement status; Z96.0 Presence of urogenital implants; Z20.828 Contact with and (suspected) exposure to other viral communicable diseases
CPT/HCPCS: G0378; J1650; J1953

== ENCOUNTER 2020-10-10 22:16 | Emergency (ER) | payer MEDICARE, MEDICAID ==
[~2020-10-10] VITALS: Ht 172.7 cm; Wt 86.3 kg
[~2020-10-10 22:16] MED LIST changes: +CIPROFLOXACN250 MG VT; +CONSTULOSE10 GM/15 M VT; +DEPAKOTE SPR125 MG PO; +DIAZEPAM RE; +EFFER-K20 MEQ VT; +LEVETIRACETAM500 MG VT
[2020-10-10 23:57] LABS: IMMATURE GRANULOCYTES 0.3 % (0.0-5.0); MEAN CELL VOLUME 89.5 fL CALC (80.0-100.0); MEAN CORPUSCULAR HGB 29.4 pG CALC (26.0-32.0); MEAN CORPUSCULAR HGB CONC 32.8 g/dL CAL (32.0-36.0); NEUT# 5.27 thou/uL (2.00-7.15); RED BLOOD COUNT 3.06 mill/uL (4.20-5.60); RED CELL DISTRI WIDTH 13.8 % (11.5-15.5)
[2020-10-11 00:02] LABS: HEMATOCRIT 27.4 % (37.0-47.0)
[2020-10-11 00:26] LABS: ALBUMIN 2.9 g/dL (3.2-5.0); ALKALINE PHOSPHATASE 50 u/l (38-126); ANION GAP 9 (6-22 (CALC)); BILIRUBIN, TOTAL 0.7 mg/dL (0.0-1.4); BUN 13 mg/dL (8-23); BUN/CREATININE RATIO 40 (12-20 (CALC)); CARBON DIOXIDE 33 mmol/l (22-30); CHLORIDE 93 mmol/l (95-108); CREATININE 0.3 mg/dL (0.5-1.0); GFR > 60 ML/MIN (>=60 (CALC)); GFR FOR AFR.AMER. > 60 ML/MIN (>=60 (CALC)); POTASSIUM 3.9 mmol/l (3.5-5.1); SGOT/AST 19 u/l (9-36); SODIUM 130 mmol/l (137-146); TOTAL PROTEIN 5.5 g/dL (6.3-8.2)
[2020-10-11 00:35] LABS: ACT PARTIAL THROMBO TIME 30.1 SECONDS (20.0-32.5); D-DIMER 3.7 mg/L (0.19-0.60); INTERNATIONAL NORMALIZED RATIO 1.1 RATIO (0.7-1.3)
[2020-10-11 01:29] VITALS: BP 103/64
== END 2020-10-11 01:29 | disposition home or self-care (01) ==
LOC: ED 22:16
PROVIDERS: Family Medicine
DX: R60.0 Localized edema (principal); I10 Essential (primary) hypertension; E11.9 Type 2 diabetes mellitus without complications; R47.01 Aphasia; F03.90 Unspecified dementia, unspecified severity, without behavioral disturbance, psychotic disturbance, mood disturbance, and anxiety; I34.1 Nonrheumatic mitral (valve) prolapse; Z93.0 Tracheostomy status; Z93.1 Gastrostomy status; Z96.0 Presence of urogenital implants; Z86.73 Personal history of transient ischemic attack (TIA), and cerebral infarction without residual deficits

== ENCOUNTER 2020-12-30 01:10 | Inpatient (IN) | payer MEDICARE, MEDICAID ==
[~2020-12-30] VITALS: Ht 172.7 cm; Wt 79.0 kg
[2020-12-30 01:57] LABS: IMMATURE GRANULOCYTES 0.4 % (0.0-5.0); MEAN CELL VOLUME 85.9 fL CALC (80.0-100.0); MEAN CORPUSCULAR HGB 27.4 pG CALC (26.0-32.0); MEAN CORPUSCULAR HGB CONC 31.9 g/dL CAL (32.0-36.0); NEUT# 12.64 thou/uL (2.00-7.15); RED BLOOD COUNT 4.75 mill/uL (4.20-5.60); RED CELL DISTRI WIDTH 13.9 % (11.5-15.5)
[2020-12-30 01:58] LABS: URINE BILIRUBIN - DIPSTICK NEGATIVE (NEGATIVE); URINE BLOOD DIPSTICK SMALL (NEGATIVE); URINE COLOR YELLOW; URINE GLUCOSE - DIPSTICK NEGATIVE (NEGATIVE); URINE PROTEIN - DIPSTICK 100 mg/dL (NEG-TRACE); URINE SPECIFIC GRAVITY 1.015; URINE UROBILINOGEN - DIPSTICK 0.2 E.U./dL (0.2)
[2020-12-30 02:00] LABS: HEMATOCRIT 40.8 % (37.0-47.0)
[2020-12-30 02:01] LABS: URINE KETONE NEGATIVE (NEGATIVE); URINE LEUK ESTERASE MODERATE (NEGATIVE); URINE NITRITE - DIPSTICK POSITIVE (Negative)
[2020-12-30 02:04] LABS: URINE EPITHELIAL CELLS MODERATE EPI/hpf (0-FEW); URINE WBC 50-100 WBC/hpf (0-5)
[2020-12-30] MEDS ORDERED: DIVALPROEX SOD250 MG PEG (02:04)
[2020-12-30] MEDS ORDERED: LOPRESSOR25 MG PEG (02:04)
[2020-12-30 02:05] LABS: URINE BACTERIA MANY hpf
[2020-12-30] MEDS ORDERED: NITROFURANTN100 MG PEG (02:05)
[2020-12-30] MEDS ORDERED: KEPPRA750 M2 PEG (02:05)
[2020-12-30] MEDS ORDERED: [UNRECOGNIZED DRUG - OTHER] PEG (02:06)
[2020-12-30] MEDS ORDERED: MELATONIN FAST10 MG PEG (02:07)
[2020-12-30] MEDS ORDERED: FAMOTIDINE20 M1 PEG (02:07)
[2020-12-30] MEDS ORDERED: CETIRIZINE10 MG PEG (02:09)
[2020-12-30] MEDS ORDERED: APRESOLINE25 MG/TAB PEG (02:10)
[2020-12-30 02:14] LABS: ALKALINE PHOSPHATASE 73 u/l (38-126); BILIRUBIN, TOTAL 0.6 mg/dL (0.0-1.4); BUN 10 mg/dL (8-23); BUN/CREATININE RATIO 33 (12-20 (CALC)); CHLORIDE 95 mmol/l (95-108); CREATININE 0.3 mg/dL (0.5-1.0); GFR > 60 ML/MIN (>=60 (CALC)); GFR FOR AFR.AMER. > 60 ML/MIN (>=60 (CALC)); LIPASE 20 u/l (23-300); POTASSIUM 4.1 mmol/l (3.5-5.1); SGOT/AST 20 u/l (9-36); SODIUM 128 mmol/l (137-146)
[2020-12-30 02:15] LABS: ALBUMIN 3.8 g/dL (3.2-5.0); ANION GAP 11 (6-22 (CALC)); CARBON DIOXIDE 26 mmol/l (22-30); TOTAL PROTEIN 7.1 g/dL (6.3-8.2)
[2020-12-30 02:18] LABS: ACT PARTIAL THROMBO TIME 28.5 SECONDS (20.0-32.5); INTERNATIONAL NORMALIZED RATIO 1.1 RATIO (0.7-1.3); PROTHROMBIN TIME 11.4 SECONDS (9.0-12.5)
[2020-12-30 02:22] LABS: D-DIMER 0.79 mg/L (0.19-0.60)
[2020-12-30 03:30] VITALS: BP 111/58
[2020-12-30 08:00] VITALS: BP 111/55
[2020-12-30 11:52] VITALS: BP 111/56
[2020-12-30 16:19] VITALS: BP 116/51
[2020-12-31] VITALS (7 sets, daily range): BP systolic 91–119; BP diastolic 51–60
[2020-12-31 05:56] LABS: MEAN CELL VOLUME 87.5 fL CALC (80.0-100.0); MEAN CORPUSCULAR HGB 27.7 pG CALC (26.0-32.0); MEAN CORPUSCULAR HGB CONC 31.6 g/dL CAL (32.0-36.0); RED BLOOD COUNT 3.61 mill/uL (4.20-5.60); RED CELL DISTRI WIDTH 14.3 % (11.5-15.5)
[2020-12-31 06:00] LABS: HEMATOCRIT 31.6 % (37.0-47.0)
[2020-12-31 06:18] LABS: ANION GAP 8 (6-22 (CALC)); BUN 14 mg/dL (8-23); BUN/CREATININE RATIO 34 (12-20 (CALC)); CARBON DIOXIDE 28 mmol/l (22-30); CHLORIDE 98 mmol/l (95-108); CREATININE 0.4 mg/dL (0.5-1.0); GFR > 60 ML/MIN (>=60 (CALC)); GFR FOR AFR.AMER. > 60 ML/MIN (>=60 (CALC)); MAGNESIUM 1.9 mg/dL (1.6-2.3); POTASSIUM 3.5 mmol/l (3.5-5.1); SODIUM 131 mmol/l (137-146)
[2021-01-01 00:29] VITALS: BP 123/70
[2021-01-01 03:55] VITALS: BP 127/62
[2021-01-01 05:34] LABS: HEMATOCRIT 31.5 % (37.0-47.0); HEMOGLOBIN 9.9 g/dl (12.0-16.0); MEAN CELL VOLUME 88.2 fL CALC (80.0-100.0); MEAN CORPUSCULAR HGB 27.7 pG CALC (26.0-32.0); MEAN CORPUSCULAR HGB CONC 31.4 g/dL CAL (32.0-36.0); RED BLOOD COUNT 3.57 mill/uL (4.20-5.60); RED CELL DISTRI WIDTH 14.3 % (11.5-15.5)
[2021-01-01 05:48] LABS: ANION GAP 7 (6-22 (CALC)); BUN 13 mg/dL (8-23); BUN/CREATININE RATIO 33 (12-20 (CALC)); CARBON DIOXIDE 27 mmol/l (22-30); CHLORIDE 101 mmol/l (95-108); CREATININE 0.4 mg/dL (0.5-1.0); GFR > 60 ML/MIN (>=60 (CALC)); GFR FOR AFR.AMER. > 60 ML/MIN (>=60 (CALC)); MAGNESIUM 1.8 mg/dL (1.6-2.3); POTASSIUM 3.3 mmol/l (3.5-5.1); SODIUM 132 mmol/l (137-146)
[2021-01-01 07:25] VITALS: BP 128/61
[2021-01-01 10:52] VITALS: BP 138/55
[2021-01-01 14:58] VITALS: BP 130/78
[2021-01-01 19:15] VITALS: BP 138/65
[2021-01-02 00:03] VITALS: BP 139/61
[2021-01-02 03:55] VITALS: BP 145/64
[2021-01-02 06:34] LABS: HEMATOCRIT 32.2 % (37.0-47.0); HEMOGLOBIN 9.9 g/dl (12.0-16.0); MEAN CELL VOLUME 90.4 fL CALC (80.0-100.0); MEAN CORPUSCULAR HGB 27.8 pG CALC (26.0-32.0); MEAN CORPUSCULAR HGB CONC 30.7 g/dL CAL (32.0-36.0); RED BLOOD COUNT 3.56 mill/uL (4.20-5.60); RED CELL DISTRI WIDTH 14.3 % (11.5-15.5)
[2021-01-02 06:55] LABS: ANION GAP 7 (6-22 (CALC)); BUN 13 mg/dL (8-23); BUN/CREATININE RATIO 38 (12-20 (CALC)); CARBON DIOXIDE 29 mmol/l (22-30); CHLORIDE 102 mmol/l (95-108); CREATININE 0.3 mg/dL (0.5-1.0); GFR > 60 ML/MIN (>=60 (CALC)); GFR FOR AFR.AMER. > 60 ML/MIN (>=60 (CALC)); POTASSIUM 3.4 mmol/l (3.5-5.1); SODIUM 134 mmol/l (137-146)
[2021-01-02 08:07] VITALS: BP 124/60
[2021-01-02 10:35] VITALS: BP 102/55
[2021-01-02 15:33] VITALS: BP 149/74
[2021-01-02 19:35] VITALS: BP 146/79
[2021-01-03] VITALS: BP 134/58
[2021-01-03 04:30] VITALS: BP 138/78
[2021-01-03 08:20] VITALS: BP 154/73
[2021-01-03 10:49] VITALS: BP 146/77
[2021-01-03 12:02] LABS: ANION GAP 9 (6-22 (CALC)); BUN 14 mg/dL (8-23); BUN/CREATININE RATIO 42 (12-20 (CALC)); CARBON DIOXIDE 30 mmol/l (22-30); CHLORIDE 102 mmol/l (95-108); CREATININE 0.3 mg/dL (0.5-1.0); GFR > 60 ML/MIN (>=60 (CALC)); GFR FOR AFR.AMER. > 60 ML/MIN (>=60 (CALC)); POTASSIUM 3.4 mmol/l (3.5-5.1); SODIUM 137 mmol/l (137-146)
[2021-01-03 14:57] VITALS: BP 137/69
[2021-01-03 19:50] VITALS: BP 147/64
[2021-01-04] VITALS: BP 147/62
[2021-01-04 04:00] VITALS: BP 137/67
[2021-01-04 05:04] LABS: HEMATOCRIT 34.8 % (37.0-47.0); HEMOGLOBIN 10.5 g/dl (12.0-16.0); IMMATURE GRANULOCYTES 0.7 % (0.0-5.0); MEAN CELL VOLUME 90.2 fL CALC (80.0-100.0); MEAN CORPUSCULAR HGB 27.2 pG CALC (26.0-32.0); MEAN CORPUSCULAR HGB CONC 30.2 g/dL CAL (32.0-36.0); NEUT# 4.98 thou/uL (2.00-7.15); RED BLOOD COUNT 3.86 mill/uL (4.20-5.60); RED CELL DISTRI WIDTH 14.4 % (11.5-15.5)
[2021-01-04 05:20] LABS: ALKALINE PHOSPHATASE 52 u/l (38-126); ANION GAP 8 (6-22 (CALC)); BILIRUBIN, TOTAL 0.4 mg/dL (0.0-1.4); BUN 16 mg/dL (8-23); BUN/CREATININE RATIO 52 (12-20 (CALC)); CARBON DIOXIDE 29 mmol/l (22-30); CHLORIDE 103 mmol/l (95-108); CREATININE 0.3 mg/dL (0.5-1.0); GFR > 60 ML/MIN (>=60 (CALC)); GFR FOR AFR.AMER. > 60 ML/MIN (>=60 (CALC)); POTASSIUM 3.7 mmol/l (3.5-5.1); SGOT/AST 21 u/l (9-36); SODIUM 136 mmol/l (137-146)
[2021-01-04 05:22] LABS: ALBUMIN 2.5 g/dL (3.2-5.0); TOTAL PROTEIN 5.2 g/dL (6.3-8.2)
[2021-01-04 08:00] VITALS: BP 160/70
[2021-01-04 10:30] VITALS: BP 151/77
[2021-01-04] MEDS ORDERED: LINEZOLID PEG (14:59)
[2021-01-04 15:30] VITALS: BP 164/65
[2021-01-04 18:53] VITALS: BP 156/74
== END 2021-01-04 19:58 | disposition home or self-care (01) | DRG 603 ==
LOC: ED 01:10 → ED-I 02:26 → ED 02:42 → MS2 02:43
PROVIDERS: Nurse Practitioner; Nurse Practitioner Family; ADMIT Internal Medicine; ATTEND Internal Medicine
DX: L03.116 Cellulitis of left lower limb (principal); T83.511A Infection and inflammatory reaction due to indwelling urethral catheter, initial encounter; N39.0 Urinary tract infection, site not specified; E87.1 Hypo-osmolality and hyponatremia; R78.81 Bacteremia; I12.9 Hypertensive chronic kidney disease with stage 1 through stage 4 chronic kidney disease, or unspecified chronic kidney disease; E11.22 Type 2 diabetes mellitus with diabetic chronic kidney disease; N18.9 Chronic kidney disease, unspecified; I25.10 Atherosclerotic heart disease of native coronary artery without angina pectoris; F03.90 Unspecified dementia, unspecified severity, without behavioral disturbance, psychotic disturbance, mood disturbance, and anxiety; I34.1 Nonrheumatic mitral (valve) prolapse; I95.9 Hypotension, unspecified; G40.909 Epilepsy, unspecified, not intractable, without status epilepticus; B96.5 Pseudomonas (aeruginosa) (mallei) (pseudomallei) as the cause of diseases classified elsewhere; Y84.6 Urinary catheterization as the cause of abnormal reaction of the patient, or of later complication, without mention of misadventure at the time of the procedure; Z86.73 Personal history of transient ischemic attack (TIA), and cerebral infarction without residual deficits; Z93.1 Gastrostomy status; Z93.0 Tracheostomy status; Z86.718 Personal history of other venous thrombosis and embolism; Z96.0 Presence of urogenital implants; Z87.440 Personal history of urinary (tract) infections; Z20.822 Contact with and (suspected) exposure to COVID-19
CPT/HCPCS: G0378; J0692; Q3014

== ENCOUNTER 2021-04-01 10:34 | Observation (INO) | payer MEDICARE, MEDICAID ==
[~2021-04-01] VITALS: Ht 172.7 cm; Wt 65.0 kg
[~2021-04-01 10:34] MED LIST changes: +APRESOLINE25 MG/TAB PEG; +CETIRIZINE10 MG PEG; +DIVALPROEX SOD250 MG PEG; +FAMOTIDINE20 M1 PEG; +KEPPRA750 M2 PEG; +LINEZOLID PEG; +LOPRESSOR25 MG PEG; +MELATONIN FAST10 MG PEG; +NITROFURANTN100 MG PEG; +[UNRECOGNIZED DRUG - OTHER] PEG
--- NOTE | 2021-04-01 10:40 | NUR ---
PT TO ROOM FOR TRIAGE VIA EMS STRETCHER. NON-VERBAL, NORMAL FOR PT/BASELINE
[2021-04-01] MEDS ORDERED: ASPIRIN81 MG PEG (10:55)
[2021-04-01] MEDS ORDERED: MAGNESI12 PEG (10:56)
[2021-04-01 11:33] LABS: IMMATURE GRANULOCYTES 0.2 % (0.0-5.0); MEAN CELL VOLUME 85.2 fL CALC (80.0-100.0); MEAN CORPUSCULAR HGB 28.1 pG CALC (26.0-32.0); MEAN CORPUSCULAR HGB CONC 32.9 g/dL CAL (32.0-36.0); NEUT# 7.93 thou/uL (2.00-7.15); RED BLOOD COUNT 5.06 mill/uL (4.20-5.60); RED CELL DISTRI WIDTH 13.3 % (11.5-15.5)
[2021-04-01 11:36] LABS: HEMATOCRIT 43.1 % (37.0-47.0); HEMOGLOBIN 14.2 g/dl (12.0-16.0)
--- NOTE | 2021-04-01 11:44 | NUR ---
PT RESTING. STABLE ON MONITOR. NO DISTRESS NOTED.
[2021-04-01 11:50] LABS: ACT PARTIAL THROMBO TIME 26.7 SECONDS (20.0-32.5); INTERNATIONAL NORMALIZED RATIO 1.1 RATIO (0.7-1.3); PROTHROMBIN TIME 11.6 SECONDS (9.0-12.5)
--- NOTE | 2021-04-01 12:50 | NUR ---
PT STABLE. BLANKET PROVIDED.
[2021-04-01 13:23] LABS: ALBUMIN 3.6 g/dL (3.2-5.0); ALKALINE PHOSPHATASE 80 u/l (38-126); ANION GAP 16 (6-22 (CALC)); BILIRUBIN, TOTAL 0.5 mg/dL (0.0-1.4); BUN 5 mg/dL (8-23); BUN/CREATININE RATIO 19 (12-20 (CALC)); CARBON DIOXIDE 23 mmol/l (22-30); CHLORIDE 94 mmol/l (95-108); CREATININE 0.3 mg/dL (0.5-1.0); GFR > 60 ML/MIN (>=60 (CALC)); GFR FOR AFR.AMER. > 60 ML/MIN (>=60 (CALC)); LIPASE 37 u/l (23-300); POTASSIUM 3.5 mmol/l (3.5-5.1); SGOT/AST 20 u/l (9-36); SODIUM 129 mmol/l (137-146); TOTAL PROTEIN 6.9 g/dL (6.3-8.2)
--- NOTE | 2021-04-01 13:30 | NUR ---
IV MEDS INFUSING WITHOUT DIFFICULTY. NO CONCERNS VOICED.
[2021-04-01] MEDS ORDERED: DIVALPROEX125 M1 PO (13:55)
[2021-04-01 13:59] LABS: URINE BILIRUBIN - DIPSTICK NEGATIVE (NEGATIVE); URINE BLOOD DIPSTICK TRACE-INTACT (NEGATIVE); URINE COLOR YELLOW; URINE GLUCOSE - DIPSTICK NEGATIVE (NEGATIVE); URINE KETONE NEGATIVE (NEGATIVE); URINE PH 7.5 (4.5-8.0); URINE PROTEIN - DIPSTICK TRACE mg/dL (NEG-TRACE); URINE SPECIFIC GRAVITY 1.015; URINE UROBILINOGEN - DIPSTICK 0.2 E.U./dL (0.2)
[2021-04-01 14:02] LABS: URINE LEUK ESTERASE LARGE (NEGATIVE); URINE NITRITE - DIPSTICK NEGATIVE (Negative)
[2021-04-01 14:03] LABS: URINE BACTERIA MODERATE hpf; URINE EPITHELIAL CELLS MODERATE EPI/hpf (0-FEW); URINE RBC 0-2 RBC/hpf (0-5); URINE WBC 20-50 WBC/hpf (0-5)
--- NOTE | 2021-04-01 14:26 | NUR ---
PT RESTING. PENDING ADMISSION. NO CHANGES NOTED.
--- NOTE | 2021-04-01 15:30 | NUR ---
IV MEDS COMPLETED. STABLE ON MONITOR. PENDING ADMISSION
--- NOTE | 2021-04-01 16:03 | NUR ---
REPORT GIVEN TO CARLOS ENRIQUE MIRANDA ON [facility]. PT ADMITTED TO 262
[2021-04-01 16:09] VITALS: BP 176/83
--- NOTE | 2021-04-01 16:10 | NUR ---
PT TO ROOM 262 VIA STRETCHER ACCOMPANIED BY ER NURSE. PT TRANSFERED TO BED X3 STAFF MAX ASSIST. PT IS NON VERBAL. LIMITED HISTORY DUE TO NON VERBAL STATUS WILL USE PRIOR ADMISSION HISTORY AND CALL FAMILY. ADMISSION ASSESSMENT COMPLETED AT THIS TIME. IV PATENT X1. WOUND PICS OBTAINED AT THIS TIME AND PLACED ON CHART. CALL LIGHT IN REACH. WILL CONTINUE TO MONITOR CLOSELY.
--- NOTE | 2021-04-01 16:15 | NUR ---
PT TO ROOM 261 VIA STRETCHER. PT ABLE TO TRANSFER SELF FROM STRETCHER TO BED WITH MINIMAL ASSISTANCE. PT IS ALERT AND ORIENTED X3. ADMISSION ASSESSEMNT COMPLETED AT THIS TIME. IV PATENT X1. ORIENTED PT TO ROOM AND UNIT. CALLLIGHT IN REACH. WILL CONTINUE TO MONITOR,.
--- NOTE | 2021-04-01 16:30 | NUR ---
PHONED FAMILY FOR UPDATE. CANELA CHANGED ON 03/16/21. FAMILY REQUESTS THAT TRACH BE CULTURED. WILL NOTIFY PROVIDER. NO CHANGE IN PMH/PSH.
[2021-04-01 18:32] VITALS: BP 132/68
--- NOTE | 2021-04-01 20:30 | NUR ---
PATIENT LAYING SEMI FOWLERS POSITION. TRACHE NOTED. RESPIRATIONS UNLABORED. SOME GREEN MUCUS NOTED. PEG TUBE TO UPPER ABDOMEN NOTED, CLAMPED. IVF INFUISNG ORDERED. FALL PRECAUTINS IN PLACE. BED IN LOW POSITION. CALL LIGHT WITHIN REACH.
--- NOTE | 2021-04-01 23:51 | NUR ---
PATIENT RECEIVED 8 OZ JEVITY WITHOUT DIFFICULTY. HOB ELEVATED 45 DEGREES. RT AT BEDSIDE TO SUCTION PT. TOLERATED WELL. GREEN MUCUS SUCTIONED WITH GOOD RESULT.
[2021-04-02 04:00] VITALS: BP 119/43
--- NOTE | 2021-04-02 05:12 | NUR ---
RESTING QUIETLY. NO ACUTE DISTRESS OBSERVED.
--- NOTE | 2021-04-02 06:20 | NUR ---
PATIENT RECEIVED IVABT AND Q6 HOUR TUBE FEEDING. TOLERATED WELL. FALL PRECAUTIONS/BED ALARM IN PLACE/ACTIVATED.
--- NOTE | 2021-04-02 07:00 | NUR ---
REPORT FROM SCOTT MONACO. ASSUMED PT CARE.
[2021-04-02 07:16] VITALS: BP 95/40
[2021-04-02 08:19] LABS: IMMATURE GRANULOCYTES 0.2 % (0.0-5.0); MEAN CELL VOLUME 86.9 fL CALC (80.0-100.0); MEAN CORPUSCULAR HGB 28.3 pG CALC (26.0-32.0); MEAN CORPUSCULAR HGB CONC 32.6 g/dL CAL (32.0-36.0); NEUT# 6.37 thou/uL (2.00-7.15); RED BLOOD COUNT 4.06 mill/uL (4.20-5.60); RED CELL DISTRI WIDTH 13.5 % (11.5-15.5)
[2021-04-02 08:22] LABS: HEMATOCRIT 35.3 % (37.0-47.0); HEMOGLOBIN 11.5 g/dl (12.0-16.0)
[2021-04-02 08:36] LABS: ANION GAP 10 (6-22 (CALC)); BUN 10 mg/dL (8-23); BUN/CREATININE RATIO 33 (12-20 (CALC)); CARBON DIOXIDE 25 mmol/l (22-30); CHLORIDE 97 mmol/l (95-108); CREATININE 0.3 mg/dL (0.5-1.0); GFR > 60 ML/MIN (>=60 (CALC)); GFR FOR AFR.AMER. > 60 ML/MIN (>=60 (CALC)); POTASSIUM 3.1 mmol/l (3.5-5.1); SODIUM 129 mmol/l (137-146)
--- NOTE | 2021-04-02 09:46 | NUR ---
CONSULT WITH DR. CARSON VIA TELEHELTH FACETIME CALL.
--- NOTE | 2021-04-02 10:28 | NUR ---
Pt screened by ST. Intervention and assessment not recmmended at this time d/t trach dependency and current status. SEISMOGRAPH RECORDER discussed with physician about a new HME for trach d/t cleanliness of current HME and risk of infection.
--- NOTE | 2021-04-02 11:20 | NUR ---
NOTIFIED MERT GALLARDO OF DIETARY RECOMMENDATIONS FOR PEGTUBE FEEDINGS.
--- NOTE | 2021-04-02 12:04 | NUR ---
PEGTUBE FEEDING PROVIDED. PEGTUBE PLACEMENT VERIFIED. NO RESIDUAL NOTED. PT TOLERATED WELL. HOB REMAINS ELEVATED AT THIS TIME.
[2021-04-02] MEDS ORDERED: ZYVOX600 MG PO (12:45)
--- NOTE | 2021-04-02 15:15 | NUR ---
WIRE STRIPPING MACHINE OPERATOR AT BEDSIDE.
[2021-04-02 15:44] VITALS: BP 118/58
--- NOTE | 2021-04-02 16:20 | NUR ---
CALLED PATIENT'S GRANDDAUGHTER AMBAR, GAVE HER AN UPDATE. INFORMED HER THAT THE PATIENT WILL BE GOING HOME WITH TRANSPORTATION. WILL CALL THE PATIENT'S GRANDDAUGHTER BACK WHEN WE HAVE AN ESTIMATED TIME FOR SALES OPERATIONS SPECIALIST PER HER REQUEST.
--- NOTE | 2021-04-02 16:36 | NUR ---
SET UP TRANSPORTATION HOME VIA [facility]. ETA 30 MINUTES. WILL NOTIFY FAMILY.
--- NOTE | 2021-04-02 16:45 | NUR ---
CALLED PATIENT'S GRANDDAUGHTER BACK WITH THE ESTIMATED CORPORATE COUNSEL TIME FROM TRANSPORTATION. SHE STATED "OK SOUNDS GOOD".
--- NOTE | 2021-04-02 17:28 | NUR ---
IV site discontinued, cath intact. No edema , no redness, voices no discomfort.
--- NOTE | 2021-04-02 17:33 | NUR ---
PT LEFT [facility]IA [facility] IN STABLE CONDITION. PT ACCOMPAINED BY [facility] STAFF TO HOME ADDRESS.
--- NOTE | 2021-04-02 17:34 | NUR ---
CALLED THE PATINET'S GRANDDAUGHTER TO INFORM HER THAT THE PATIENT JUST LEFT WITH [facility].
== END 2021-04-02 17:33 | disposition home health service (06) ==
LOC: ED 10:34 → ED-I 13:25 → ED 13:38 → MS2 13:39
PROVIDERS: Nurse Practitioner; ADMIT Hospitalist; ATTEND Hospitalist
DX: L53.9 Erythematous condition, unspecified (principal); M79.89 Other specified soft tissue disorders; E87.1 Hypo-osmolality and hyponatremia; I12.9 Hypertensive chronic kidney disease with stage 1 through stage 4 chronic kidney disease, or unspecified chronic kidney disease; E11.22 Type 2 diabetes mellitus with diabetic chronic kidney disease; N18.9 Chronic kidney disease, unspecified; F03.90 Unspecified dementia, unspecified severity, without behavioral disturbance, psychotic disturbance, mood disturbance, and anxiety; G40.909 Epilepsy, unspecified, not intractable, without status epilepticus; I34.1 Nonrheumatic mitral (valve) prolapse; M21.372 Foot drop, left foot; M21.371 Foot drop, right foot; Z93.1 Gastrostomy status; Z86.73 Personal history of transient ischemic attack (TIA), and cerebral infarction without residual deficits; Z93.0 Tracheostomy status; Z74.01 Bed confinement status; Z96.0 Presence of urogenital implants; Z20.822 Contact with and (suspected) exposure to COVID-19
CPT/HCPCS: G0378; J1650; Q3014

== ENCOUNTER 2021-05-05 14:22 | Observation (INO) | payer MEDICARE, MEDICAID ==
[~2021-05-05] VITALS: Ht 172.7 cm; Wt 82.0 kg
[~2021-05-05 14:22] MED LIST changes: +ASPIRIN81 MG PEG; +DIVALPROEX125 M1 PO; +MAGNESI12 PEG; +ZYVOX600 MG PO
[2021-05-05 15:19] LABS: URINE BILIRUBIN - DIPSTICK NEGATIVE (NEGATIVE); URINE BLOOD DIPSTICK TRACE-INTACT (NEGATIVE); URINE COLOR YELLOW; URINE GLUCOSE - DIPSTICK 250 mg/dL (NEGATIVE); URINE KETONE NEGATIVE (NEGATIVE); URINE PROTEIN - DIPSTICK TRACE mg/dL (NEG-TRACE); URINE SPECIFIC GRAVITY 1.025; URINE UROBILINOGEN - DIPSTICK 0.2 E.U./dL (0.2)
[2021-05-05 15:21] LABS: URINE LEUK ESTERASE SMALL (NEGATIVE); URINE NITRITE - DIPSTICK POSITIVE (Negative)
[2021-05-05 15:31] LABS: URINE SQUAMOUS EPITHELIAL CELL FEW EPI/hpf (0-FEW)
[2021-05-05 15:32] LABS: URINE BACTERIA MODERATE hpf
[2021-05-05 16:13] LABS: HEMATOCRIT 33.9 % (37.0-47.0); IMMATURE GRANULOCYTES 0.2 % (0.0-5.0); MEAN CELL VOLUME 88.1 fL CALC (80.0-100.0); MEAN CORPUSCULAR HGB 28.6 pG CALC (26.0-32.0); MEAN CORPUSCULAR HGB CONC 32.4 g/dL CAL (32.0-36.0); NEUT# 19.78 thou/uL (2.00-7.15); RED BLOOD COUNT 3.85 mill/uL (4.20-5.60); RED CELL DISTRI WIDTH 15.6 % (11.5-15.5)
[2021-05-05 16:32] LABS: ALKALINE PHOSPHATASE 67 u/l (38-126); ANION GAP 9 (6-22 (CALC)); BILIRUBIN, TOTAL 0.6 mg/dL (0.0-1.4); BUN 17 mg/dL (8-23); BUN/CREATININE RATIO 49 (12-20 (CALC)); CARBON DIOXIDE 30 mmol/l (22-30); CHLORIDE 92 mmol/l (95-108); CREATININE 0.4 mg/dL (0.5-1.0); GFR > 60 ML/MIN (>=60 (CALC)); GFR FOR AFR.AMER. > 60 ML/MIN (>=60 (CALC)); LIPASE 19 u/l (23-300); POTASSIUM 2.5 mmol/l (3.5-5.1); SGOT/AST 17 u/l (9-36); SODIUM 128 mmol/l (137-146); TOTAL PROTEIN 5.7 g/dL (6.3-8.2)
[2021-05-05 16:35] LABS: ALBUMIN 2.8 g/dL (3.2-5.0)
[2021-05-06 00:35] VITALS: BP 153/68
[2021-05-06 04:16] VITALS: BP 169/67
[2021-05-06 07:55] VITALS: BP 113/49
[2021-05-06 08:26] LABS: HEMATOCRIT 34.2 % (37.0-47.0); HEMOGLOBIN 10.7 g/dl (12.0-16.0); IMMATURE GRANULOCYTES 0.1 % (0.0-5.0); MEAN CELL VOLUME 91.2 fL CALC (80.0-100.0); MEAN CORPUSCULAR HGB 28.5 pG CALC (26.0-32.0); MEAN CORPUSCULAR HGB CONC 31.3 g/dL CAL (32.0-36.0); NEUT# 6.19 thou/uL (2.00-7.15); RED BLOOD COUNT 3.75 mill/uL (4.20-5.60); RED CELL DISTRI WIDTH 15.8 % (11.5-15.5)
[2021-05-06 08:29] LABS: ALBUMIN 2.7 g/dL (3.2-5.0); ALKALINE PHOSPHATASE 68 u/l (38-126); ANION GAP 8 (6-22 (CALC)); BILIRUBIN, TOTAL 0.5 mg/dL (0.0-1.4); BUN 13 mg/dL (8-23); BUN/CREATININE RATIO 39 (12-20 (CALC)); CARBON DIOXIDE 30 mmol/l (22-30); CHLORIDE 97 mmol/l (95-108); CREATININE 0.3 mg/dL (0.5-1.0); GFR > 60 ML/MIN (>=60 (CALC)); GFR FOR AFR.AMER. > 60 ML/MIN (>=60 (CALC)); POTASSIUM 2.8 mmol/l (3.5-5.1); SGOT/AST 17 u/l (9-36); SODIUM 132 mmol/l (137-146); TOTAL PROTEIN 5.4 g/dL (6.3-8.2)
[2021-05-06] MEDS ORDERED: HYDRALAZINE HYD25 MG PO ×2 (10:12→10:25)
[2021-05-06] MEDS ORDERED: GABAPENTIN300 M2 PO (10:12)
[2021-05-06] MEDS ORDERED: LIPITOR40 M1 PO (10:13)
[2021-05-06] MEDS ORDERED: LISINOPRIL40 MG PO (10:13)
[2021-05-06 15:07] VITALS: BP 119/60
[2021-05-06 18:39] VITALS: BP 148/74
[2021-05-06 22:03] VITALS: BP 166/76
[2021-05-07 03:54] LABS: HEMATOCRIT 30.9 % (37.0-47.0); HEMOGLOBIN 9.6 g/dl (12.0-16.0); MEAN CELL VOLUME 91.4 fL CALC (80.0-100.0); MEAN CORPUSCULAR HGB 28.4 pG CALC (26.0-32.0); MEAN CORPUSCULAR HGB CONC 31.1 g/dL CAL (32.0-36.0); RED BLOOD COUNT 3.38 mill/uL (4.20-5.60); RED CELL DISTRI WIDTH 15.6 % (11.5-15.5)
[2021-05-07 03:56] LABS: ANION GAP 5 (6-22 (CALC)); BUN 11 mg/dL (8-23); BUN/CREATININE RATIO 34 (12-20 (CALC)); CARBON DIOXIDE 28 mmol/l (22-30); CHLORIDE 104 mmol/l (95-108); CREATININE 0.3 mg/dL (0.5-1.0); GFR > 60 ML/MIN (>=60 (CALC)); GFR FOR AFR.AMER. > 60 ML/MIN (>=60 (CALC)); MAGNESIUM 1.8 mg/dL (1.6-2.3); POTASSIUM 2.9 mmol/l (3.5-5.1); SODIUM 134 mmol/l (137-146)
[2021-05-07 04:20] VITALS: BP 149/78
[2021-05-07 14:15] VITALS: BP 168/80
[2021-05-07 18:55] VITALS: BP 142/63
[2021-05-08 04:00] VITALS: BP 136/72
[2021-05-08 11:50] LABS: ANION GAP 11 (6-22 (CALC)); BUN 13 mg/dL (8-23); BUN/CREATININE RATIO 41 (12-20 (CALC)); CARBON DIOXIDE 23 mmol/l (22-30); CHLORIDE 106 mmol/l (95-108); CREATININE 0.3 mg/dL (0.5-1.0); GFR > 60 ML/MIN (>=60 (CALC)); GFR FOR AFR.AMER. > 60 ML/MIN (>=60 (CALC)); MAGNESIUM 1.7 mg/dL (1.6-2.3); POTASSIUM 3.3 mmol/l (3.5-5.1); SODIUM 136 mmol/l (137-146)
[2021-05-08 15:05] VITALS: BP 168/63
[2021-05-08 19:00] VITALS: BP 163/54
[2021-05-09 04:00] VITALS: BP 175/77
[2021-05-09 08:00] VITALS: BP 187/71
[2021-05-09 11:57] LABS: ALBUMIN 2.4 g/dL (3.2-5.0); ALKALINE PHOSPHATASE 57 u/l (38-126); ANION GAP 8 (6-22 (CALC)); BILIRUBIN, TOTAL 0.4 mg/dL (0.0-1.4); BUN 10 mg/dL (8-23); BUN/CREATININE RATIO 36 (12-20 (CALC)); CARBON DIOXIDE 24 mmol/l (22-30); CHLORIDE 107 mmol/l (95-108); CREATININE 0.3 mg/dL (0.5-1.0); GFR > 60 ML/MIN (>=60 (CALC)); GFR FOR AFR.AMER. > 60 ML/MIN (>=60 (CALC)); SGOT/AST 16 u/l (9-36); SODIUM 135 mmol/l (137-146); TOTAL PROTEIN 4.9 g/dL (6.3-8.2)
[2021-05-09 16:10] VITALS: BP 141/55
[2021-05-09 19:05] VITALS: BP 128/76
[2021-05-10 04:00] VITALS: BP 176/84
[2021-05-10 10:16] VITALS: BP 154/81
[2021-05-10 11:49] LABS: HEMATOCRIT 35.1 % (37.0-47.0); HEMOGLOBIN 10.8 g/dl (12.0-16.0); IMMATURE GRANULOCYTES 0.2 % (0.0-5.0); MEAN CELL VOLUME 91.9 fL CALC (80.0-100.0); MEAN CORPUSCULAR HGB 28.3 pG CALC (26.0-32.0); MEAN CORPUSCULAR HGB CONC 30.8 g/dL CAL (32.0-36.0); NEUT# 3.71 thou/uL (2.00-7.15); RED BLOOD COUNT 3.82 mill/uL (4.20-5.60); RED CELL DISTRI WIDTH 15.8 % (11.5-15.5)
[2021-05-10 12:08] LABS: ANION GAP 10 (6-22 (CALC)); BUN 14 mg/dL (8-23); BUN/CREATININE RATIO 42 (12-20 (CALC)); CARBON DIOXIDE 27 mmol/l (22-30); CHLORIDE 104 mmol/l (95-108); CREATININE 0.3 mg/dL (0.5-1.0); GFR > 60 ML/MIN (>=60 (CALC)); GFR FOR AFR.AMER. > 60 ML/MIN (>=60 (CALC)); MAGNESIUM 1.7 mg/dL (1.6-2.3); SODIUM 137 mmol/l (137-146)
[2021-05-10 12:09] LABS: POTASSIUM 3.9 mmol/l (3.5-5.1)
[2021-05-10 15:10] VITALS: BP 137/64
== END 2021-05-10 17:32 | disposition home health service (06) ==
LOC: ED 14:22 → ED-I 17:21 → ED 20:12 → MS2 20:13
PROVIDERS: Family Medicine; Internal Medicine; Nurse Practitioner; Nurse Practitioner Family; ADMIT Internal Medicine; ATTEND Internal Medicine
DX: N39.0 Urinary tract infection, site not specified (principal); L03.116 Cellulitis of left lower limb; K92.0 Hematemesis; E87.1 Hypo-osmolality and hyponatremia; E87.6 Hypokalemia; I12.9 Hypertensive chronic kidney disease with stage 1 through stage 4 chronic kidney disease, or unspecified chronic kidney disease; E11.22 Type 2 diabetes mellitus with diabetic chronic kidney disease; N18.9 Chronic kidney disease, unspecified; G40.909 Epilepsy, unspecified, not intractable, without status epilepticus; K63.89 Other specified diseases of intestine; I69.198 Other sequelae of nontraumatic intracerebral hemorrhage; G93.89 Other specified disorders of brain; I34.1 Nonrheumatic mitral (valve) prolapse; F03.90 Unspecified dementia, unspecified severity, without behavioral disturbance, psychotic disturbance, mood disturbance, and anxiety; B96.5 Pseudomonas (aeruginosa) (mallei) (pseudomallei) as the cause of diseases classified elsewhere; Z93.0 Tracheostomy status; Z93.1 Gastrostomy status; Z96.0 Presence of urogenital implants; Z20.822 Contact with and (suspected) exposure to COVID-19
CPT/HCPCS: G0378; J0692; J3370; J3475; Q3014; Q9967; S0164

== ENCOUNTER 2021-07-03 11:51 | Observation (INO) | payer MEDICARE, MEDICAID ==
[~2021-07-03] VITALS: Ht 172.7 cm; Wt 68.0 kg
[~2021-07-03 11:51] MED LIST changes: +GABAPENTIN300 M2 PO; +HYDRALAZINE HYD25 MG PO; +LIPITOR40 M1 PO; +LISINOPRIL40 MG PO
--- NOTE | 2021-07-03 11:51 | NUR ---
PT ARRIVES VIA EMS NON VERBAL USUAL, O2 SAT 96% ON RA , TRACH IN PLACE. EMS STATES FAMILY FEELS PT IS LESS ALERT TODAY THAN USUAL.
[2021-07-03 12:30] LABS: HEMATOCRIT 37.8 % (37.0-47.0); HEMOGLOBIN 12.2 g/dl (12.0-16.0); IMMATURE GRANULOCYTES 0.2 % (0.0-5.0); MEAN CELL VOLUME 90.9 fL CALC (80.0-100.0); MEAN CORPUSCULAR HGB 29.3 pG CALC (26.0-32.0); MEAN CORPUSCULAR HGB CONC 32.3 g/dL CAL (32.0-36.0); NEUT# 11.48 thou/uL (2.00-7.15); RED BLOOD COUNT 4.16 mill/uL (4.20-5.60); RED CELL DISTRI WIDTH 15.8 % (11.5-15.5)
[2021-07-03 12:48] LABS: ALKALINE PHOSPHATASE 82 u/l (38-126); BILIRUBIN, TOTAL 0.5 mg/dL (0.0-1.4); BUN 11 mg/dL (8-23); BUN/CREATININE RATIO 31 (12-20 (CALC)); CARBON DIOXIDE 22 mmol/l (22-30); CHLORIDE 93 mmol/l (95-108); CREATININE 0.4 mg/dL (0.5-1.0); GFR > 60 ML/MIN (>=60 (CALC)); GFR FOR AFR.AMER. > 60 ML/MIN (>=60 (CALC)); POTASSIUM 4.2 mmol/l (3.5-5.1); SGOT/AST 21 u/l (9-36)
[2021-07-03 12:49] LABS: ALBUMIN 3.5 g/dL (3.2-5.0); ANION GAP 15 (6-22 (CALC)); SODIUM 126 mmol/l (137-146)
--- NOTE | 2021-07-03 15:16 | NUR ---
PT TO RADIOLOGY
[2021-07-03 15:47] LABS: URINE BILIRUBIN - DIPSTICK NEGATIVE (NEGATIVE); URINE BLOOD DIPSTICK TRACE-INTACT (NEGATIVE); URINE COLOR YELLOW; URINE GLUCOSE - DIPSTICK NEGATIVE (NEGATIVE); URINE KETONE NEGATIVE (NEGATIVE); URINE LEUK ESTERASE TRACE (NEGATIVE); URINE PH 6.5 (4.5-8.0); URINE PROTEIN - DIPSTICK 30 mg/dL (NEG-TRACE); URINE SPECIFIC GRAVITY 1.015; URINE UROBILINOGEN - DIPSTICK 0.2 E.U./dL (0.2)
[2021-07-03 15:49] LABS: URINE NITRITE - DIPSTICK NEGATIVE (Negative)
[2021-07-03 15:53] LABS: URINE SQUAMOUS EPITHELIAL CELL FEW EPI/hpf (0-FEW); URINE WBC 20-50 WBC/hpf (0-5)
--- NOTE | 2021-07-03 16:56 | NUR ---
PT CLEANED AND GIVEN NADEEM CARE AND LINEN CHANGE AFTER BM.
--- NOTE | 2021-07-03 18:53 | NUR ---
REPORT GIVEN TO APPLICATIONS SALES REPRESENTATIVE RN, NO S/S OF DISTRESS NOTED .
--- NOTE | 2021-07-03 19:05 | NUR ---
W/D SKIN NON VERBAL BY HX CLEAR BILAT BREATYH SOUNDS CANELA CATH HAS 100CC YELOLOW URING COLLECTED BY GRAVITY SR NO ECTOPY
--- NOTE | 2021-07-03 19:35 | NUR ---
PHONE REPORT TO ROWDY MONACO ON [facility]
--- NOTE | 2021-07-03 19:40 | NUR ---
PT TRANSPORTED TO [facility] IN STABLE CONDITION
[2021-07-03 19:55] VITALS: BP 155/48
--- NOTE | 2021-07-03 22:00 | NUR ---
PATIENT ADMITTED FROM ER WITH ER STAFF IN ATTENDANCE. PATIENT IS MAX ASSIST TO TRANSFER TO THE BED. PATIENT IS RESPONSIVE TO PAINFUL STIMULI. EYES REMAIN CLOSED. NON-VERBAL. PATIENT AFMITTED FOR COVID PNEUMONIA AND CELLULITIS TO RIGHT ELBOW. PATIENT IS ON ISOLATION FOR COVID. PATIENT WITH HX OF CVA-WITH TRACH INPLACE. O2 SAT ARE 95% AT THIS TIME. PATIENT WITH MONDERATE AMT OF THICK YELLOW SECREATIONS NOTED. AEROSOL HUMIDIFICATION APPLIED USING TRACH COLLAR. PATIENT WITH PEG TUBE IN PLACE. NO RESIDUAL NOTED-PLACEMENT WAS CHECKED. HOB ELEVATED FOR TUBE FEEDING. GLUCERNA 1 BIX GIVEN WITHOUT ANY DIFFICULTY WITH H20 FLUSH. CANELA CATH IN PLACE AND DRAINING YELLOW URINE. PATIENT INCONT OF MODERATE AMT OF LIQUID BROWN STOOL. PERICARE AND CANELA CATH CARE WAS GIEN WITH SOAP AND WATER. PATIENT WITH DRY FLAKEY SKIN NOTED TO BACK. SKIN BREAKDOWN TO BUTTOCK/COCCYX AREA NOTED. BARRIER CREAM APPLIED. PATIENT WITH DIMINISHED SHALLOW BREATH SOUNDS. PATIENT WITH SIGNIFICANT FOOT DROP DMITRIY. HEEL PROTECTORS APPLIED. HEELS ELEVATED OFF THE BED. CALL LIGHT IN REACH. WILL CONT TO MONITOR.
[2021-07-04] VITALS: BP 119/80
--- NOTE | 2021-07-04 03:05 | NUR ---
PATIENT INCONT OF LARGE AMT OF LIQUID BROWN STOOL. PERICARE PROVIDED. TURNED AND REPOSITIONED. IV SITE TO LEFT FOREARM INTACT. WILL CONT TO MONITOR.
[2021-07-04 04:00] VITALS: BP 123/57
--- NOTE | 2021-07-04 04:39 | NUR ---
PATIENT RESTING IN BED AT THIS TIME-INCONT OF MODERATE AMT OF LOOSE BROWN STOOL. PERICARE AND CANELA CATH CARE WAS DONE. PHOTO TAKEN OF BUTTOCK/COCCYX AREA FOR THE CHART. BACK IS ALSO VERY RED AND BARRIER CREAM WAS APPLIED TO THE BACK AND BUTTOCKS AREA. TRACH CARE WAS DONE. MODERATE AMT OF THICK YELLOW SECREATIONS WERE OBTAINED. INNER CANNULA WAS REPLACED.PEG TUBE IN PLACE-RESIDUAL WAS LESS THAN 5CC. HOB IS ELEVATED AND GLUCERNA TUBE FEEDING WAS GIVEN WITHOUT ANY DIFFICULTY FOLLOWED BY H20 FLUSH. ORAL HYGEINE WAS PROVIDED. PATIENT IS NOW RESPONDING TO NAME WHEN SPOKEN TO SHE IS OPENING HER EYES. WHEN ASKED TO OPEN HER MOUTH SHE DOES OPEN IT. BLE ELEVATED ON PILLOWS AND HEEL PROTECTORS ARE IN PLACE. CALL LIGHT IN REACH. WILL CONT TO MONITOR.
[2021-07-04 08:44] VITALS: BP 149/73
--- NOTE | 2021-07-04 08:44 | NUR ---
ASSESSMENT DONE. PATIENT IS SEMI-FOWLERS IN BED. PATIENT IS NON-VERBAL. PATIENT OPENS AND CLOSES EYES. TELE IN PLACE. LUNGS SOUND DIMINISHED. O2 SATS 98% RA. AEROSOL HUMIDIFICATION TRACH COLLAR IN PLACE. PEG TUBE IN PLACE. CANELA IS PATENT WITH YELLOW URINE.
--- NOTE | 2021-07-04 10:12 | NUR ---
S: ROBERTO PRAJAPATI is a 81 F who presents with left arm cellulitis, cellulitis of right elbow, pneumonia due to COVID-19 virus, UTI, and constipation. She has a history of T2 diabetes, HTN, CVA, dementia, heart disease, CKD, seizures, fluid retention, diffuse intracranial bleeds, and mitral valve prolapse. All medications in patient's chart were reviewed. O: VS: BP 149/73 mmHg, P 76 bpm, RR 18 breath/min, T 96.9 deg F W 68 kg, HT 68 in, Scr= 1 (0.4), CrCl= 49 ml/min A: Blood culture is pending. Urine culture shows >100,000 CFU/mL mixed gram positive jozef. Probable skin contamination. P: Patient is on aztreonam 2g IV Q8H. Vancomycin ordered for pharmacy to dose. Start Vancomycin 1g IV Q24H. Vancomycin trough is drawn before the 4th dose on 07/06/21 at 1430. Vancomycin goal trough is between 15-20 mcg/ml. Pharmacy will follow and or advise on antibiotics use as needed.
[2021-07-04 10:40] LABS: HEMATOCRIT 32.8 % (37.0-47.0); HEMOGLOBIN 10.5 g/dl (12.0-16.0); IMMATURE GRANULOCYTES 0.1 % (0.0-5.0); MEAN CELL VOLUME 92.1 fL CALC (80.0-100.0); MEAN CORPUSCULAR HGB 29.5 pG CALC (26.0-32.0); NEUT# 7.87 thou/uL (2.00-7.15); RED BLOOD COUNT 3.56 mill/uL (4.20-5.60); RED CELL DISTRI WIDTH 15.7 % (11.5-15.5)
[2021-07-04 11:03] VITALS: BP 138/69
[2021-07-04 11:03] LABS: ANION GAP 11 (6-22 (CALC)); BUN 15 mg/dL (8-23); BUN/CREATININE RATIO 46 (12-20 (CALC)); CARBON DIOXIDE 24 mmol/l (22-30); CHLORIDE 97 mmol/l (95-108); CREATININE 0.3 mg/dL (0.5-1.0); GFR > 60 ML/MIN (>=60 (CALC)); GFR FOR AFR.AMER. > 60 ML/MIN (>=60 (CALC)); POTASSIUM 4.7 mmol/l (3.5-5.1); SODIUM 127 mmol/l (137-146)
--- NOTE | 2021-07-04 11:45 | NUR ---
HEAD OF THE BED IS ELEVATED. FEED PATIENT VIA PEG TUBE GLUCERNA AND THEN FLUSH WITH 200ML WATER PER ORDER. PATIENT TOLERATED WELL. NO DISTRESS NOTED ON PATIENT. TELE IN PLACE.
--- NOTE | 2021-07-04 15:00 | NUR ---
PATIENT HAD A LOOSE BM IN BED. RESTAURANT TEAM MEMBER AND I GAVE PATIENT A BED BATH. BARRIER CREAM APPLIED TO PATIENT BUTTOCKS. TURN PATIENT TO HER RIGHT SIDE. BOTH LEGS ELEVATED IN PILLOWS. TELE IN PLACE.
[2021-07-04 15:36] VITALS: BP 136/73
[2021-07-04 19:07] VITALS: BP 151/75
--- NOTE | 2021-07-04 20:00 | NUR ---
PATIENT RESTING IN BED AT THIS TIME WITH HOB ELEVATED AND EYES CLOSED. PATIENT WITH TRACH INTACT AND AEROSOL TRACH COLLAR IN PLACE. O2 SAT AT 96%. RESPS ARE SHALLOW BUT EVEN. PEG TUBE INTACT AND CLAMPED AT THIS TIME. CANELA CATH PATENT AND DRAINING YELLOW URINE. CALL LIGHT IN REACH. WILL CONT TO MONITOR.
--- NOTE | 2021-07-04 22:00 | NUR ---
PATIENT RESTING IN BED-HOB ELEVATED. O2 SATS ARE 98% AT THIS TIME. PATIENT MEDICATED WITH AZACTAM ORDERED VIA RIGHT FOREARM IV SITE-SITE REMAINS HEALTHY AT THIS TIME. PATIENT MEDICATED WITH KEPPRA 500MG VIA PEG TUBE ORDERED. GLUCERNA TUBE FEEDING GIVEN-1 BOX FOLLOWED BY 200CC H20 FLUSH WITHOUT ANY DIFFICULTY. NO RESIDUAL PRIOR TO MEDS OR FEEDING. REMAINS WITH HOB ELEVATED AFTER FEEDING. PATIENT WITH SIDERAILS PADDED FOR SEIZURE PRECAUTIONS. REMAINS ON ISOLATION FOR COVID. CALL LIGHT IN REACH.WILL CONT TO MONITOR.
[2021-07-05 00:15] VITALS: BP 140/70
--- NOTE | 2021-07-05 02:00 | NUR ---
PATIENT RESTING IN BED. PATIENT IS AWAKE WITH EYES OPEN. PATIENT PROVIDED WITH TRACT CARE-MODERATE OF CRUSTY YELLOW DRAINAGE NOTED ON INNER CANNULA. CLEANED WITH STERILE WATER AND H2O2 I/2 AND 09/26, PATIENT SUCTIONED FOR MODERATE AMT OF THIN PALE YELLOW/WHITE SECREATIONS. CALLED RT TO RE-EVAL AEROSOL COLLAR, COLLAR IN PLACE. PATIENT WAS TURNED AND REPOSITIONED ON LEFT SIDE. EXCORIATED BUTTOCKS WAS WASHED WITH SOAP AND WATER AND BARRIER CREAM WAS APPLIED. BACK WAS WASHED AND BARRIER CREAM WAS APPLIED. CANELA CATH CARE WAS DONE WITH SOAP AND WATER. CANELA IS PATENT AND DRAINING YELLOW URINE. MOUTH CARE WAS DONE. O2 SAT AFTER ACTIVITY WAS 96%. CALL LIGHT IN REACH. WILL CONT TO MONITOR.
[2021-07-05 04:48] VITALS: BP 145/69
[2021-07-05 05:14] LABS: HEMATOCRIT 34.9 % (37.0-47.0); HEMOGLOBIN 11.2 g/dl (12.0-16.0); IMMATURE GRANULOCYTES 0.2 % (0.0-5.0); MEAN CELL VOLUME 92.1 fL CALC (80.0-100.0); MEAN CORPUSCULAR HGB 29.6 pG CALC (26.0-32.0); MEAN CORPUSCULAR HGB CONC 32.1 g/dL CAL (32.0-36.0); NEUT# 3.27 thou/uL (2.00-7.15); RED BLOOD COUNT 3.79 mill/uL (4.20-5.60); RED CELL DISTRI WIDTH 15.6 % (11.5-15.5)
[2021-07-05 05:32] LABS: ANION GAP 10 (6-22 (CALC)); BUN 13 mg/dL (8-23); BUN/CREATININE RATIO 39 (12-20 (CALC)); CARBON DIOXIDE 25 mmol/l (22-30); CHLORIDE 99 mmol/l (95-108); CREATININE 0.3 mg/dL (0.5-1.0); GFR > 60 ML/MIN (>=60 (CALC)); GFR FOR AFR.AMER. > 60 ML/MIN (>=60 (CALC)); POTASSIUM 4.2 mmol/l (3.5-5.1); SODIUM 130 mmol/l (137-146)
[2021-07-05 07:54] VITALS: BP 140/60
--- NOTE | 2021-07-05 08:30 | NUR ---
PT SEEN AT REST IN THE BED, OPENED HER EYES WITH LIGHT BEING TURNED ON. PT IS NONVERBAL, HAS TRACH IN PLACE, BEDBOUND. PT TURNED TO RIGHT SIDE FOR SKIN PRESERVATION. LUNGS WITH RHONCHI THROUGHOUT. NO DISTRESS NOTED.
--- NOTE | 2021-07-05 10:09 | NUR ---
PT PROVIDED GLUCERNA 1.5 ONE CAN BY PEG TUBE AT THIS TIME, TOLERATED WELL.
[2021-07-05 10:10] VITALS: BP 145/74
--- NOTE | 2021-07-05 10:56 | NUR ---
PT SEEN THIS MORNING BY DR MASON AND MERT DIANE. PT WITH MINIMAL DEPENDENT EDEMA TO BILATERAL ELBOWS, NO OBVIOUS CELLULITIS. PT NONVERBAL.
--- NOTE | 2021-07-05 11:28 | NUR ---
PT IS ON .21 AG, SAT 95%, PT HAS # 6 SHILEY CUFFLESS, OUTSIDE PT ROOM IS A # 6 CUFFED EVANGELISTA MONTANA RN AWARE. REPLACED PT WATER IN AG AT THIS TIME.
--- NOTE | 2021-07-05 14:14 | NUR ---
PT PROVIDED SECOND CAN OF GLUCERNA. DRESSING FOR TRACH WAS CHANGED OUT ALSO, PER THICK SECRETIONS SOILING ORIGINAL. PT TOLERATED WELL.
[2021-07-05 14:20] VITALS: BP 142/61
--- NOTE | 2021-07-05 14:28 | NUR ---
INFECTIOUS DISEASE CONSULT WITH DR YOHANA CARSON WAS DONE. NO CHANGES RECOMMENDED. PT REMAINS AT REST IN THE BED, NO DISTRESS. PT TURNED TO LEFT SIDE.
[2021-07-05] MEDS ORDERED: ASPIRIN 81 LOW81 MG PO (15:32)
[2021-07-05] MEDS ORDERED: CEPHALEXIN250 MG/51 PO (15:34)
--- NOTE | 2021-07-05 17:36 | NUR ---
PT CHANGED BY JAMES AND BELLA MONACO FOR STOOL INCONTINENCE. AQUACEL DRESSING PLACED OVER EXCORIATED COCCYX AREA. PT GIVEN THIRD CAN OF GLUCERNA TODAY, NO RESIDUAL NOTED.
[2021-07-05 19:00] VITALS: BP 127/62
--- NOTE | 2021-07-05 21:15 | NUR ---
PHYSICAL ASSESMENT COMPLETE. GLUCERNA GIVEN VIA FEED TUBE. FLUIDS AND AND PO MEDICATION PROVIDED VIA FEED TUBE. PT TOLERTED WELL. VERIFIED TRACH TUBE CLEAR AND IN POSITION. CANELA VERIFIED,; URINE UNOBSTRUCTED AND FLOWING TO GRAVITY. SCHEDULED MEDICATIONS AND PRN MEDICATION ADMINISTERED, SEE E-MAR. ITEMS WITHIN REACH, BED LOCKED IN LOW POSITION W/ BEDRAILS UP X2. CALL RAMOS WITHIN REACH, AGREES TO CALL PRN.
[2021-07-06] VITALS: BP 141/68
--- NOTE | 2021-07-06 00:29 | NUR ---
PT INCONT OF STOOL. BED CHANGED AND PT WASHED. PT TURNED ON HER RIGHT SIDE. TRECH IS CLEAR AND PT RESPIRATIONSARE EVEN AND UNLABORED. BED REMAINS LOCKED AND IN LOW POSITION WITH BEDRAILS UP X2. WILL CONTINUE TO MONITOR.
[2021-07-06 04:00] VITALS: BP 156/81
--- NOTE | 2021-07-06 04:00 | NUR ---
PT SEEN AT REST IN THE BED, RESPONED TO VERBAL STIMULI. PT IS NONVERBAL, HAS TRACH IN PLACE, BEDBOUND. PT TURNED TO LEFT SIDE FOR SKIN PRESERVATION. LUNGS WITH RHONCHI THROUGHOUT. NO DISTRESS NOTED.
[2021-07-06 04:52] LABS: HEMATOCRIT 34.8 % (37.0-47.0); HEMOGLOBIN 11.1 g/dl (12.0-16.0); MEAN CELL VOLUME 91.6 fL CALC (80.0-100.0); MEAN CORPUSCULAR HGB 29.2 pG CALC (26.0-32.0); MEAN CORPUSCULAR HGB CONC 31.9 g/dL CAL (32.0-36.0); RED BLOOD COUNT 3.8 mill/uL (4.20-5.60); RED CELL DISTRI WIDTH 15.6 % (11.5-15.5)
[2021-07-06 05:07] LABS: ANION GAP 11 (6-22 (CALC)); BUN 14 mg/dL (8-23); BUN/CREATININE RATIO 47 (12-20 (CALC)); CARBON DIOXIDE 26 mmol/l (22-30); CHLORIDE 100 mmol/l (95-108); CREATININE 0.3 mg/dL (0.5-1.0); GFR > 60 ML/MIN (>=60 (CALC)); GFR FOR AFR.AMER. > 60 ML/MIN (>=60 (CALC)); POTASSIUM 3.6 mmol/l (3.5-5.1); SODIUM 133 mmol/l (137-146)
--- NOTE | 2021-07-06 05:22 | NUR ---
GLUCERNA GIVEN IN FEEDING TUBE FOLLOWED BY 200 CC WATER. PT TOLERATED WELL. WILL CONTINUE TO MONITOR.
--- NOTE | 2021-07-06 07:07 | NUR ---
PT ON 21% AG, SATS 96%, EXTRA #6 SHILEY CUFFLESS AT BEDSIDE.
[2021-07-06 07:25] VITALS: BP 157/69
--- NOTE | 2021-07-06 07:25 | NUR ---
PT SLEEPING IN BED, AWAKENED TO COMPLETE ASSESSMENT. PT ABLE TO OPEN HER EYES WHEN NAME IS CALLED; NON-VERBAL. NO FACIAL EXPRESSIONS OF PAIN. ABLE TO TANBARK PEELER THIS WRITERS HANDS. COARSE BREATH SOUNDS UPON AUSCULTATION. TRACH IN PLACE; KENDRA RT AT BEDSIDE FOR EVALUATION; RT REPORTS NO CHANGES AT THIS TIME; O2 SUSTAINING 94%. BRICK MACHINE OPERATOR IN PLACE. #20G RFA HEALTHY AND PATENT; ABX COMPLETED AT THIS TIME; IV FLUSHED WITH EASE. ACTIVE BOWEL SOUNDS X4 QUADRANTS. PEG TUBE IN PLACE; HEALTHY; LAST TUBE FEEDING AT 5 PER J EDMIN RN. BM REPORTED BY PRIOR SHIFT LAST NIGHT; DESCRIBED LARGE. REDNESS NOTED TO BUTTOCKS/COCCYX; AQUACEL DRESSING TO BE OBTAINED AND APPLIED.CANELA CATHETER DRAINING VIA GRAVITY; CLEAR YELLOW URINE NOTED. +2 PITTING EDEMA NOTED TO LLE; BILATERAL FOOT DROP; STRONG PEDAL PULSES BILATERALLY; BILATERAL HEEL PROTECTORS PLACED; BILATERAL EXTREMITIES ELEVATED. PT TURNED TO LT USING PILLOWS. ASSESSMENT COMPLETED.
--- NOTE | 2021-07-06 07:30 | NUR ---
AG WATER REPLACED, RN UPDATED. NO DEEP SUCTIONING REQUIRED AT THIS TIME.
--- NOTE | 2021-07-06 09:50 | NUR ---
complete bed bath given. aquacel dressing applied at this time. scheduled medications given via peg tube with HOB at semi - fowlers positions. tolerated well. pt turned to rt side with pillows.
--- NOTE | 2021-07-06 10:11 | NUR ---
PT REMAINS ON 21% AG FOR HUMIDIFICATION. PT DOES NOT REQUIRE DEEP SUCTIONING AT THIS TIME. VS STABLE.
[2021-07-06 10:15] VITALS: BP 148/76
--- NOTE | 2021-07-06 11:29 | NUR ---
VERBAL CONSENT VIA TELEPHONE OBTAINED FROM CECILIO. D/C INSTRUCTIONS ALSO REVIEWED/DISCUSSED VIA TELEPHONE.
--- NOTE | 2021-07-06 14:08 | NUR ---
UPDATED TIME [facility] IS APPROXIMATELY 4:30 PM. PT REMAINS IN STABLE CONDITION.
[2021-07-06 14:45] VITALS: BP 138/70
--- NOTE | 2021-07-06 14:56 | NUR ---
RT AT BEDSIDE FOR SUCTIONING EVAL. PHLEGM NOTED; THICK AND YELLOW IN COLOR. DRESSING REMAINS INTACT. ABX INITIATED AT THIS TIME. IV REMAINS HEALTHY AND PATENT
--- NOTE | 2021-07-06 15:16 | NUR ---
PT HAS A # 6 CUFFLESS SHILEY, ON .21% AG. OUTSIDE ROOM PT HAS A CUFFED # 6 SHILEY. RN AWARE.
--- NOTE | 2021-07-06 16:17 | NUR ---
[facility] PENDING AT THIS TIME
--- NOTE | 2021-07-06 19:15 | NUR ---
Discharge instructions given TO ELECTRIC DEICER ASSEMBLER. Discharged in stable condition via [facility] to Home with staff. All belongings sent with pt.
== END 2021-07-06 19:15 | disposition home or self-care (01) ==
LOC: ED 11:51 → ED-I 17:27 → MS2 17:44 → ED 17:44 → MS2 17:44
PROVIDERS: Family Medicine; Nurse Practitioner; ADMIT Internal Medicine; ATTEND Internal Medicine
PROC: 0T2BX0Z Change Drainage Device in Bladder, External Approach (ICD-10-PCS; principal; 2021-07-03)
DX: R60.0 Localized edema (principal); U07.1 COVID-19; N39.0 Urinary tract infection, site not specified; K56.41 Fecal impaction; I12.9 Hypertensive chronic kidney disease with stage 1 through stage 4 chronic kidney disease, or unspecified chronic kidney disease; E11.22 Type 2 diabetes mellitus with diabetic chronic kidney disease; N18.9 Chronic kidney disease, unspecified; G40.909 Epilepsy, unspecified, not intractable, without status epilepticus; I69.320 Aphasia following cerebral infarction; F03.90 Unspecified dementia, unspecified severity, without behavioral disturbance, psychotic disturbance, mood disturbance, and anxiety; I34.1 Nonrheumatic mitral (valve) prolapse; Z93.0 Tracheostomy status; Z93.1 Gastrostomy status; Z96.0 Presence of urogenital implants; Z88.0 Allergy status to penicillin
CPT/HCPCS: Q9967; S0073